=== PATIENT | male | born 1980 | race Caucasian/White ===

== ENCOUNTER → 2021-05-13 | Outpatient (CLI) | payer MEDICAID | END | disposition home or self-care (01) | LOC: Rad HDHVI 15:56 | PROVIDERS: ATTEND Internal Medicine | DX: I10 Essential (primary) hypertension (principal); I25.2 Old myocardial infarction | CPT/HCPCS: 93306 ==

== ENCOUNTER → 2021-06-30 | Outpatient (CLI) | payer MEDICAID ==
[~2021-06-30] VITALS: Ht 175.3 cm; Wt 199.6 kg
[~2021-06-30] MED LIST: ADENOSINE 90 MG/30 ML INJ IV ONE; ADENOSINE IV ONE; GIVE UN DILUTED IV ONE
== END | disposition home or self-care (01) ==
LOC: Rad HDHVI 09:00
PROVIDERS: ATTEND Internal Medicine
DX: Z01.810 Encounter for preprocedural cardiovascular examination (principal); Z13.0 Encounter for screening for diseases of the blood and blood-forming organs and certain disorders involving the immune mechanism
CPT/HCPCS: 78452; 93005; 96374; 96375; A9500; J0153

== ENCOUNTER 2024-12-17 21:10 | Inpatient (IN) | payer MEDICAID ==
[~2024-12-17] VITALS: Ht 175.3 cm; Wt 223.0 kg
[~2024-12-17 21:10] MED LIST changes: -ADENOSINE 90 MG/30 ML INJ IV ONE; -ADENOSINE IV ONE; +BUME2TAB5 PO; +DOLU1TAB6 PO; -GIVE UN DILUTED IV ONE; +HYDR25TA87 PO; +LOSA-535 PO; +MET25T PO; +POTA-180 PO; +ROSU40TA47 PO; +SPIR25TA8 PO; +TAMS0.4C39 PO
[2024-12-17] MEDS ORDERED: VANCOMYCIN PER PHARMACY 0 MG IV SCH (21:45)
[2024-12-17] MEDS: VANCOMYCIN 1GM/250ML IV SCH (22:00)
--- NOTE | 2024-12-17 22:03 | ED.PDOC ---
Musculoskeletal HPI Comments 44-year-old male with CAD status post 3 NAVEEN 2015, 2018, hypertension, bilateral lower extremity recurrent open wounds 2022, left toes amputation 1995, HIV on meds 2022, dyslipidemia presented to the ER with a chief complaint of bilateral purulent draining wound past weeks. Patient was seen in [facility] ER yesterday for similar reasons, was experiencing fever and chills, he was discharged from the ER and received a call earlier today that he has Gram- positive cocci and clusters in his blood. Patient did get 1 dose of vancomycin in ER at [facility] yesterday per patient. Patient reports that he has been having these bilateral wounds, lower extremity swelling, cellulitis since 2022 and there waxing and waning in nature. He does have wound care at home. He denies fever and chills at this time. Does reports shortness of breaths on exertion, PND and orthopnea. Denies diabetes and CHF. Follows Dr. Perez, and Bri Patient seen and examined in ER. Bilateral lower extremity are diffusely swollen, with purulent draining wound and surrounding erythema, active and pa ssive range of motion intact, sensations intact bilaterally. No pain with passive stretching. Attestation note: Dr. Gates: I was the supervising attending for this ED encounter. Please see the resident's notes. I was available for questions and consultations. Differential diagnosis: Leg swelling Ddx include but not limited to DVT, ischemic limb, pitting edema, volume overload, CHF, cellulitis, hematoma, compartment syndrome, dependent edema, venous stasis. Necrotizing fasciitis, abscess, infestation. MDM: MDM: patient presented with the above HPI.---leg swelling possible sepsis---workup was initiated. patient was found with the above mentioned diagnosis. the following medications were ordered: please refer to order lists of meds and tests obtained by myself Dr. Gates. Patient ED course and VS have been stabilized. Patient has been reassessed in the ED and remained in a stable condition. Pertinent incidental findings were discussed with the patient and/or family. Patient/family voices understanding and is agreeable with plan. Patient has been observed in the ED adequate length of time to insure imp rovement/stability. Escalation of care considered: Consideration of escalation to observation or admission Antibiotics initiated per sepsis protocol. Patient was given Lasix for volume overload and pitting edema lower extremities. Patient was ADMITTED to the medicine team for further evaluation and treatment of their presentation. All the reports of any imaging studies that were ordered by myself were reviewed by myself. Chief Complaint: Lower Extremity Time Seen by MD: 21:38 Reviewed Notes: Nurses Notes Allergies: Coded Allergies: Codeine (Verified Allergy, Unknown, 06/30/21) Penicillins (Verified Allergy, Unknown, 06/30/21) Sulfa Antibiotics (Verified Allergy, Unknown, 06/30/21) Information Source: Patient Mode of Arrival: Ambulatory Location: Left, Right, Bilateral Extremity Location: Ankle Timing: Weeks Severity: Moderate Able to Move Extremity: Yes Bear Weight: Fully Pain: Moderate Past Medical History Past Medical History (Other): CAD status post 3 NAVEEN 2015, 2018, hypertension, bilateral lower extremity recurrent open wounds 2022, left toes amputation 1995, HIV on meds 2022, dyslipidemia Surgical History (Other): left toes amputation 1995 Constitutional: reports: chills, fatigue EENTM: denies: blurred vision, double vision, ear bleeding, ear discharge, ear drainage, ear pain, ear ringing, eye pain, eye redness, hearing loss, mouth pain, mouth swelling, nasal discharge, nose bleeding, nose congestion, nose pain, photophobia, tearing, throat pain, throat swelling, voice changes, others Respiratory: reports: SOB at rest, shortness of breath, SOB with excertion Cardiovascular: reports: Dyspnea on exertion, edema Gastrointestinal: denies: abdomen distended, abdominal pain, blood streaked bowels, constipated, diarrhea, dysphagia, difficulty swallowing, hematemesis, melena, nausea, poor appetite, poor fluid intake, rectal bleeding, rectal pain, vomiting, others Genitourinary: denies: burning, dysuria, flank pain, frequency, hematuria, incontinence, penile discharge, penile sore, pain, testicle pain, testicle swelling, urgency, others Neurological: denies: dizziness, fainting, headache, left sided numbness, left sided weakness, numbness, paresthesia, pre-existing deficit, right sided num bness, right sided weakness, seizure, speech problems, tingling, tremors, weakness, others Musculoskeletal: denies: back pain, gout, joint pain, joint swelling, muscle pain, muscle stiffness, neck pain, others Integumetry: reports: wounds Allergic/Immunocompromised: denies: Difficulty Healing, Frequent Infections, Hi ves, Itching, others Hematologic/Lymphatic: denies: anemia, blood clots, easy bleeding, easy bruising, swollen glands, others Endocrine: denies: excessive hunger, excessive sweating, excessive thirst, excessive urination, flushing, intolerance to cold, intolerance to heat, unexplained weight gain, unexplained weight loss, others Psychiatric: denies: anxiety, bipolar disorder, depression, hopeless, panic disorder, schizophrenia, sleepless, suicidal, others Physical Exam General Appearance: Mild Distress HEENT: Cornea (L), Cornea (R) Neck: NOT DONE Respiratory: Decreased Breath Sounds, No Respiratory Distress Cardiovascular: Regular Rate/Rhythm Breast Exam: Deferred Gastrointestinal: Non Tender, Normal Bowel Sounds Genitalia: Deferred Pelvic: Deferred Rectal: Rectal Exam not done Extremities: Inflammation, Leg edema, Normal capillary refill, Pedal edema, Swelling, Tender Neurologic: Other (grossly normal appearing) Cerebellar Function: NOT DONE Reflexes: NOT DONE Skin: Wounds Lymphatic: NOT DONE Was a procedure done? Was a procedure done?: No Differential Diagnosis EXT Differential Diagnosis: Cellulitis, CHF, Deep Vein Thrombosis X-Ray, Labs, Meds, VS Vital Signs Date Time Temp Pulse Resp B/P (MAP) Pulse Ox O2 Delivery O2 Flow Rate FiO2 12/17/24 21:13 98.8 99 20 114/99 94 98.8 Lab Test 12/17/24 22:04 Range/Units White Blood Count 20.8 H 4.4-10.8 10^3/uL Red Blood Count 4.77 4.5-5.90 10^6/uL Hemoglobin 12.9 L 13.5-17.5 g/dL Hematocrit 40.3 L 41.0-53.0 % Mean Corpuscular Volume 84.5 80.0-100.0 fL Mean Corpuscular Hemoglobin 27.1 L 28.0-32.0 pg Mean Corpuscular Hemoglobin Concent 32.1 32.0-36.0 g/dL Red Cell Distribution Width 16.7 H 11.8-14.3 % Platelet Count 284 140-450 10^3/uL Mean Platelet Volume 8.4 6.9-10.8 fL Neutrophils (%) (Auto) 82.4 H 37.0-80.0 % Lymphocytes (%) (Auto) 10.1 10.0-50.0 % Monocytes (%) (Auto) 7.3 0.0-12.0 % Eosinophils (%) (Auto) 0.0 0.0-7.0 % Basophils (%) (Auto) 0.2 0.0-2.0 % Neutrophils # (Auto) 17.2 H 1.6-8.6 10 ^3/uL Lymphocytes # (Auto) 2.1 0.4-5.4 10 ^3/uL Monocytes # (Auto) 1.5 H 0-1.3 10 ^3/uL Eosinophils # (Auto) 0 0-0.8 10 ^3/uL Basophils # (Auto) 0 0-0.2 10 ^3/uL Nucleated Red Blood Cells 0.0 % Erythrocyte Sedimentation Rate 39 H 0-20 mm/hr Sodium Level 142 136-145 mmol/L Potassium Level 3.5 3.5-5.1 mmol/L Chloride Level 102 98-107 mmol/L Carbon Dioxide Level 27 20-31 mmol/L Anion Gap 13 5-15 Blood Urea Nitrogen 16 9-23 mg/dL Creatinine 1.25 0.700-1.30 mg/dL Glomerular Filtration Rate Calc 74 >90 mL/min BUN/Creatinine Ratio 12.8 10.0-20.0 Serum Glucose 193 H 74-106 mg/dL Lactic Acid Level 2.7 *H 0.4-2.0 mmol/L Calcium Level 9.1 8.7-10.4 mg/dL Total Bilirubin 0.4 0.2-1.0 mg/dL Aspartate Amino Transferase (AST) 18 13-40 U/L Alanine Aminotransferase (ALT) 13 7-40 U/L Alkaline Phosphatase 65 46-116 U/L Troponin I High Sensitivity 53 </=54 ng/L C-Reactive Protein High Sensitivity 8.05 H <1.0 mg/dL B-Type Natriuretic Peptide 39.13 0-100 pg/mL Total Protein 8.1 5.7-8.2 g/dL Albumin 4.2 3.2-4.8 g/dL X-Ray, Labs, Meds, VS Comment ABG shows WBC 20 with left shift Lactic acid elevated at 2.7 CT right and left lower extremity could not be completed given the patient's body weight Images Reviewed?: Images reviewed and evaluated by me Time of 1ST Reevaluation: 23:00 Reevaluation 1ST: Unchanged Consultation: PCP Patient Education/Counseling: Diagnosis, Treatment, Prognosis, Need For Follow Up Family Education/Counseling: Diagnosis, Treatment, Prognosis, Need For Follow Up Sepsis Sepsis Reasesment Focused Exam Orders: Laboratory Tests 12/17/24 22:04: Lactic Acid Level 2.7 Departure 1 Departure Time of Disposition: 22:58 Impression: Primary Impression: Bilateral lower leg cellulitis Additional Impressions: Leukocytosis Sepsis Disposition: ADMITTED INPATIENT Admit to: Tele Condition: Guarded Discharged With: Self Comments Patient will be admitted to this facility for the management of bilateral lower extremity cellulitis with draining purulent wounds, possible abscess and recent positive blood culture with Gram-positive cocci in cluster. He will need IV antibiotics and cultures and podiatry. Would also on benefit from CHF workup at this time. Currently on IV vancomycin and IV meropenem LRINEC score 3 points, low risk of necrotizing fascitis Critical Care Note Critical Care Time?: Yes (45 min-critical care time only) Stability Stability form required: No GRECIA RODRIGUEZ Dec 17, 2024 22:03 SEKOU GATES DO Dec 18, 2024 00:14
[2024-12-17 22:28] LABS: Hematocrit 40.3 % (41.0-53.0); Hemoglobin 12.9 g/dL (13.5-17.5); Mean Corpuscular Hemoglobin 27.1 pg (28.0-32.0); Mean Corpuscular Volume 84.5 fL (80.0-100.0); Nucleated Red Blood Cells % 0.0 %
[2024-12-17 22:44] LABS: Alanine Aminotransferase 13 U/L (7-40); Alkaline Phosphatase 65 U/L (46-116); Anion Gap 13 (5-15); BUN/Creatinine Ratio 12.8 (10.0-20.0); Blood Urea Nitrogen 16 mg/dL (9-23); Calcium 9.1 mg/dL (8.7-10.4); Carbon Dioxide 27 mmol/L (20-31); Chloride 102 mmol/L (98-107); Potassium 3.5 mmol/L (3.5-5.1); Sodium 142 mmol/L (136-145); Total Protein 8.1 g/dL (5.7-8.2)
[2024-12-17 22:45] LABS: Albumin 4.2 g/dL (3.2-4.8); Bilirubin, Total 0.4 mg/dL (0.2-1.0)
[2024-12-17 22:50] LABS: Glucose 193 mg/dL (74-106)
[2024-12-17 22:54] LABS: Lactic Acid w/Reflex 2.7 mmol/L (0.4-2.0)
[2024-12-17] MEDS ORDERED: ACETAMINOPHEN 325 MG TAB PO PRN (23:30)
[2024-12-17] MEDS ORDERED: NITROGLYCERIN 0.4 MG SL TAB SL PRN (23:30)
[2024-12-17] MEDS ORDERED: MORPHINE SULFATE INJ 2 MG/ml SYRG IV PRN ×2 (23:30)
[2024-12-17] MEDS ORDERED: ONDANSETRON HCL 4 MG/2 ML VIAL IV PRN (23:30)
--- NOTE | 2024-12-17 23:55 | DVH ---
Exam: US LEFT LOWER EXTREMITY ULTRASOUN Clinical History: B/L purulent draining wound, r/o abcess Comparison: US RIGHT LOWER EXTREMITY ULTRASOU on DOS: 12/17/24 Technique: Targeted sonographic evaluation of the soft tissues of the left ankle was obtained utilizing graysca le and color Doppler imaging. Findings/Impression: There is no evidence for drainable collection. There is no evidence for solid or cystic mass in the site. No vascular abnormalities identified at this site. Moderate diffuse soft tissue edema.
--- NOTE | 2024-12-17 23:55 | DVH ---
Exam: US RIGHT LOWER EXTREMITY ULTRASOU Clinical History: B/L purulent draining wound, r/o abcess Comparison: US LEFT LOWER EXTREMITY ULTRASOUN on DOS: 12/17/24 Technique: Targeted sonographic evaluation of the soft tissues of the right calf was obtained utilizing graysca le and color Doppler imaging. Findings/Impression: There is no evidence for drainable collection. There is no evidence for solid or cystic mass in the site. No vascular abnormalities identified at this site. Moderate diffuse soft tissue edema.
[2024-12-18] VITALS (8 sets, daily range): BP systolic 141–169; BP diastolic 77–92; PULSE 68–82; RESP 18–20; TEMP 97.6–98.4; O2SAT 90–100
[2024-12-18] MEDS: SODIUM CHLORIDE 0.9% 1,000 ML IV ONE (00:15)
[2024-12-18] MEDS: FUROSEMIDE 40 MG/4 ML VIAL IV ONE (00:58)
[2024-12-18 01:12] LABS: Prothrombin Time 11.1 sec (9.3-11.8)
[2024-12-18 01:13] LABS: INR 1.05 (0.9-1.15); Partial Thromboplastin Time 27.1 SEC (24.5-34.5)
[2024-12-18] MEDS: VANCOMYCIN 1GM/250ML KIT 250 ML IV ONE ×2 (02:06→04:53)
--- NOTE | 2024-12-18 02:39 | DVHHPRES ---
History of Present Illness Resident Creating Document: ANNABELLE HICKS History of Present Illness Juan Diego Pretty II is a 44-year-old male patient who presents to ED with chief complaint of bilateral lower limb discharge which presented in the past two weeks. Per patient he already had bilateral lower limb swelling for the past three years, a previous diagnosis of DVT and cellulitis requiring IV antibiotics with vancomycin due to MRSA. Patient has a home health nurse that has been treating his lower limb cellulitis since mid October 2024. Due to patient's bilateral lower limb discharge, worsening bilateral lower limb swelling, fever and associated dyspnea and Functional Class II which started two weeks before ago, prompted his visit to ED in [facility] were he later left against medical advice, but received a phone call that his blood cultures were positive. Patient reports his spironolactone was reduced to half is dose approximately one month ago (from 50 mg to 25 mg p.o. daily). Denies any other associated symptoms including chest pain, nausea, vomiting, dysuria. 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 Denies current tobacco, alcohol and other drug abuse Allergies: Codeine, penicillin Home medication: Does follow, Bumex, spironolactone, aspirin, Pradaxa Flight Control Specialist: Dr Roman Patient seen and examined at bedside. Currently has no new complaints. Patient will be admitted for further evaluation Past Medical History Per HPI Past Surgical History Per HPI Family History Per HPI Past Social History Per HPI Review of Systems Review of Systems Per HPI Allergies: Coded Allergies: Codeine (Verified Allergy, Unknown, 06/30/21) Penicillins (Verified Allergy, Unknown, 06/30/21) Sulfa Antibiotics (Verified Allergy, Unknown, 06/30/21) Medications Current Medications Medications Dose Ordered Sig/Cookie Route Start Time Stop Time Status Last Admin Dose Admin Vancomycin HCl 0 ml @ 0 mls/hr UD IV 12/17/24 21:45 UNV Meropenem 50 ml @ 17 mls/hr Q8HR IV 10/6/25 23:00 Acetaminophen 325 mg Q4HP PRN PO 12/17/24 23:30 Ondansetron HCl 4 mg Q4HP PRN IV 12/17/24 23:30 Morphine Sulfate 2 mg Q4HPRN PRN IV 12/17/24 23:30 Enoxaparin Sodium 40 mg DAILY SC 12/18/24 10:00 Nitroglycerin 0.4 mg Q5MINP PRN SL 12/17/24 23:30 Morphine Sulfate 2 mg Q30M PRN IV 12/17/24 23:30 Exam Vital Signs Vital Signs Date Time Temp Pulse Resp B/P (MAP) Pulse Ox O2 Delivery O2 Flow Rate FiO2 12/18/24 00:58 169/81 12/18/24 00:50 97.6 78 20 92 97.6 12/18/24 00:26 Room Air* 0 21 Exam Patient lying in bed, in no acute distress General: Lucid, obese, afebrile, mucosae are moist Cardiovascular: Normal S1 and S2. No murmurs, gallops or rubs Respiratory: Normal ventilation mechanics. Clear lung sounds on auscultation Abdomen: Soft, prominent, nontender, no organomegaly, normal bowel sounds, umbilical hernia which is not erythematous, not warm, mobilizes with palpation. Parietal edema MSK/skin: Mobilizes 4 limbs. Skin is dry and warm. Bilateral suprapatellar edema with erythema, scaly lesions and purulent secretion from both legs. Neurological: Oriented in 3 spheres. No motor no sensitive deficits. Pupils are isocoric and reactive Labs/Xrays Labs Test 12/18/24 00:23 12/17/24 22:04 Range/Units Prothrombin Time 11.1 9.3-11.8 sec Prothrombin Time INR 1.05 0.9-1.15 Activated Partial Thromboplast Time 27.1 24.5-34.5 SEC Lactic Acid Level 1.4 0.4-2.0 mmol/L White Blood Count 20.8 H 4.4-10.8 10^3/uL Red Blood Count 4.77 4.5-5.90 10^6/uL Hemoglobin 12.9 L 13.5-17.5 g/dL Hematocrit 40.3 L 41.0-53.0 % Mean Corpuscular Volume 84.5 80.0-100.0 fL Mean Corpuscular Hemoglobin 27.1 L 28.0-32.0 pg Mean Corpuscular Hemoglobin Concent 32.1 32.0-36.0 g/dL Red Cell Distribution Width 16.7 H 11.8-14.3 % Platelet Count 284 140-450 10^3/uL Mean Platelet Volume 8.4 6.9-10.8 fL Neutrophils (%) (Auto) 82.4 H 37.0-80.0 % Lymphocytes (%) (Auto) 10.1 10.0-50.0 % Monocytes (%) (Auto) 7.3 0.0-12.0 % Eosinophils (%) (Auto) 0.0 0.0-7.0 % Basophils (%) (Auto) 0.2 0.0-2.0 % Neutrophils # (Auto) 17.2 H 1.6-8.6 10 ^3/uL Lymphocytes # (Auto) 2.1 0.4-5.4 10 ^3/uL Monocytes # (Auto) 1.5 H 0-1.3 10 ^3/uL Eosinophils # (Auto) 0 0-0.8 10 ^3/uL Basophils # (Auto) 0 0-0.2 10 ^3/uL Nucleated Red Blood Cells 0.0 % Erythrocyte Sedimentation Rate 39 H 0-20 mm/hr Sodium Level 142 136-145 mmol/L Potassium Level 3.5 3.5-5.1 mmol/L Chloride Level 102 98-107 mmol/L Carbon Dioxide Level 27 20-31 mmol/L Anion Gap 13 5-15 Blood Urea Nitrogen 16 9-23 mg/dL Creatinine 1.25 0.700-1.30 mg/dL Glomerular Filtration Rate Calc 74 >90 mL/min BUN/Creatinine Ratio 12.8 10.0-20.0 Serum Glucose 193 H 74-106 mg/dL Calcium Level 9.1 8.7-10.4 mg/dL Total Bilirubin 0.4 0.2-1.0 mg/dL Aspartate Amino Transferase (AST) 18 13-40 U/L Alanine Aminotransferase (ALT) 13 7-40 U/L Alkaline Phosphatase 65 46-116 U/L Troponin I High Sensitivity 53 </=54 ng/L C-Reactive Protein High Sensitivity 8.05 H <1.0 mg/dL B-Type Natriuretic Peptide 39.13 0-100 pg/mL Total Protein 8.1 5.7-8.2 g/dL Albumin 4.2 3.2-4.8 g/dL SEPSIS Sepsis Screen Date sepsis recognized/suspect: Dec 17, 2024 Time Sepsis recognized/suspect: 2115 Recent Procedure: No On Antibiotic Therapy: No Respiratory Rate >20: No Heart Rate >90: No Temp<36 C (96.8 F) or >38.3 C: No SBP <90 or MAP <65 mmHG: No New Acute Mental Status Change: No Is the patient on CPAP, BIPAP,: No Physician Orders Brick Handler (12/17/24 ) Blood Culture (12/17/24 21:38) Vancomycin Per Pharmacy (12/17/24 21:45) Meropenem 1gm Ivpb (Merrem 1gm/50ml) (12/17/24 23:00) Left Lower Extremity Ultrasoun (12/17/24 21:49) Right Lower Extremity Ultrasou (12/17/24 21:49) Cleanse Wound W/ Sterile Gauze (12/17/24 22:20) Cleanse Wound With Ns (12/17/24 22:20) Admit (12/17/24 23:20) Code Status (12/17/24 23:20) Acetaminophen Tablet (Tylenol Tablet) (12/17/24 23:30) Ondansetron Hcl (Zofran) (12/17/24 23:30) Complete Blood Count (12/18/24 04:00) Comprehensive Metabolic Panel (12/18/24 04:00) Npo (Nothing By Mouth) Diet (12/18/24 Breakfast) Echo 2d Mode Cardiac Dop (12/17/24 23:20) Morphine Sulfate Injection (12/17/24 23:30) Enoxaparin Sodium (Lovenox) (12/18/24 10:00) Nitroglycerin Sublingual (Ntrostat Subli (12/17/24 23:30) Morphine Sulfate Injection (12/17/24 23:30) Oxygen By Nasal Cannula (12/17/24 23:20) Stat Ekg For Chest Pain (12/17/24 23:20) Notify Md Of Changes From Base (12/17/24 23:20) Charge Account Authorizer For 24 Hours (12/17/24 23:20) Emergency Dysrhythmia Protocol (12/17/24 23:20) Rhythm Strips Once Every Shift (12/17/24 23:20) Urinalysis (12/18/24 00:07) Chest Portable (12/18/24 00:07) Accucheck (12/18/24 00:07) Notify Md If Map <65 Or Bp<90 (12/18/24 00:07) If Map<65 Start Vasopressor (12/18/24 00:07) Sepsis Fluid Exclusion: (12/18/24 00:07) Sepsis Reassesment After Fluid (12/18/24 01:07) Vancomycin 1gm/250ml Kit (12/18/24 01:45) Vancomycin 1gm/250ml Kit (12/18/24 03:15) Vital Signs Date Time Temp Pulse Resp B/P (MAP) Pulse Ox O2 Delivery O2 Flow Rate FiO2 12/18/24 00:58 169/81 12/18/24 00:50 97.6 78 20 169/81 (110) 92 97.6 12/18/24 00:26 Room Air* 0 21 12/17/24 22:01 98.6 66 16 119/67 (84) 96 98.6 12/17/24 21:13 98.8 99 20 114/99 94 98.8 Laboratory Tests Test 12/17/24 22:04 12/18/24 00:23 Lactic Acid Level 2.7 mmol/L (0.4-2.0) *H 1.4 mmol/L (0.4-2.0) White Blood Count 20.8 10^3/uL (4.4-10.8) H Medications Medications Dose Ordered Sig/Cookie Route Start Time Stop Time Status Last Admin Dose Admin Furosemide 40 mg ONCE ONCE IV 12/17/24 21:45 12/17/24 21:46 DC 12/18/24 00:58 40 MG Sodium Chloride 1,000 ml @ 1,000 mls/hr Q1H ONCE IV 12/17/24 23:00 12/17/24 23:59 DC 12/18/24 00:15 1,000 MLS/HR Vancomycin HCl 250 ml @ 166.667 mls/hr ONCE ONCE IV 12/18/24 01:45 12/18/24 03:14 12/18/24 02:06 166.667 MLS/HR Assessment/Plan Assessment/Plan Sepsis secondary to bilateral cellulitis Cellulitis Recent bacteremia History of cellulitis secondary to MRSA Patient presented positive bacteremia in [facility]. Request records Patient currently on empiric IV antibiotic (meropenem and vancomycin) Acute on chronic congestive heart failure (unknown LVEF) Coronary artery disease status post MT with three NAVEEN Ordered echocardiogram Currently on IV Bumex ( 1mg IV b.i.d.) Continue aspirin and atorvastatin BNP is 39.13. Could be false negative due to morbid obesity History of DVT Patient is on Pradaxa. Completed lower limb extremity ultrasound which ruled out DVT Currently continue with therapeutic enoxaparin Unlikely to have PE since patient is not tachycardic is is not requiring oxygen therapy. If deemed consider, re-evaluate with V/Q scan versus AngioCT HIV Patient is compliant with medication Continue Dovato Ordered CD4 to evaluate immune response Morbid obesity Gave advice on healthy lifestyle habits Counseled patient for over18 minutes Hypertension Dyslipidemia Prediabetic (hemoglobin A1c 6.1%) Continue home medication Gave advice on healthy lifestyle habits Goals of care discussed with patient for over 18 minutes: DNR/DNI (modified since patient agrees with ACLS drugs in noninvasive ventilation) Discussed case with Dr Foley, patient and nurses: Admitted the patient to telem etry. Currently under empiric IV antibiotic, on IV diuretics. Ordered complementary workup. Requested records from [facility] for positive blood culture. Plan discussed with: Patient, Other My Orders Orders - ANNABELLE HICKS RESIDENT Procedure Category Date Status Time Admit ADMIT 12/17/24 Transmitted 23:20 Code Status CODE 12/17/24 Transmitted 23:20 Acetaminophen Tablet PHA 12/17/24 In Process (Tylenol Tablet) 23:30 Ondansetron Hcl PHA 12/17/24 In Process (Zofran) 23:30 Complete Blood Count LAB 12/18/24 Logged 04:00 Comprehensive LAB 12/18/24 Logged Metabolic Panel 04:00 Npo (Nothing By DIET 12/18/24 Transmitted Mouth) Diet Breakfast Echo 2d Mode Cardiac US 12/17/24 Logged DOP 23:20 Morphine Sulfate PHA 12/17/24 In Process Injection 23:30 Enoxaparin Sodium PHA 12/18/24 In Process (Lovenox) 10:00 Nitroglycerin PHA 12/17/24 In Process Sublingual (Ntrostat 23:30 Morphine Sulfate PHA 12/17/24 In Process Injection 23:30 Oxygen By Nasal RT 12/17/24 Transmitted Cannula 23:20 Stat Ekg For Chest [facility] 12/17/24 In Process Pain 23:20 Notify Of Changes [facility] 12/17/24 In Process From Base 23:20 Charge Account Authorizer For [facility] 12/17/24 In Process 24 Hours 23:20 Emergency Dysrhythmia [facility] 12/17/24 In Process Protocol 23:20 Rhythm Strips Once [facility] 12/17/24 In Process Every Shift 23:20 Date of Service: Dec 17, 2024 Billing Provider: ANNA FOLEY MD Common Visit Codes: 92646-[id number] INP/OBS CARE (HIGH) Secondary Visit Codes: 59996-[id number] CARE PLAN 30 MINUTES ANNABELLE HICKS RESIDENT Dec 18, 2024 02:39
[2024-12-18 03:00] LABS: Hematocrit 40.0 % (41.0-53.0); Hemoglobin 12.7 g/dL (13.5-17.5); Mean Corpuscular Hemoglobin 27.3 pg (28.0-32.0); Mean Corpuscular Volume 85.7 fL (80.0-100.0); Nucleated Red Blood Cells % 0.0 %
[2024-12-18 03:03] LABS: Anion Gap 11 (5-15); Carbon Dioxide 26 mmol/L (20-31); Chloride 104 mmol/L (98-107); Potassium 3.7 mmol/L (3.5-5.1); Sodium 141 mmol/L (136-145)
[2024-12-18 03:04] LABS: Calcium 8.9 mg/dL (8.7-10.4)
[2024-12-18] MEDS: MEROPENEM 1GM IVPB 50 ML IV SCH ×3 (03:07→17:02)
[2024-12-18 03:09] LABS: BUN/Creatinine Ratio 11.1 (10.0-20.0); Blood Urea Nitrogen 12 mg/dL (9-23); Magnesium 1.8 mg/dL (1.6-2.6)
[2024-12-18 03:14] LABS: Glucose 194 mg/dL (74-106)
[2024-12-18 04:27] LABS: Triglycerides 76 mg/dL (< 150)
[2024-12-18 04:29] LABS: Cholesterol 89 mg/dL (< 200)
[2024-12-18 04:34] LABS: HDL Cholesterol 34 mg/dL (40-59)
[2024-12-18] MEDS: BUMETANIDE 1mg/4ml VIAL (0.25mg/ml) IV ONE (04:52)
[2024-12-18] MEDS: ERGOCALCIFEROL 50,000 UNIT(1.25MG) CAP PO SCH (04:52)
[2024-12-18] MEDS: BUMETANIDE 1mg/4ml VIAL (0.25mg/ml) IV SCH (05:02)
--- NOTE | 2024-12-18 05:41 | DVH ---
CHEST RADIOGRAPH Indication: SOB Technique: Single frontal view of the chest was obtained COMPARISON: None FINDINGS: Lines and Tubes: None Lungs: Moderate diffuse increased prominence of the pulmonary vasculature. No evidence of focal cons olidation. Pleura: No effusion. No pneumothorax. Cardiomediastinal contours: Cardiomegaly. Bones: Unremarkable IMPRESSION: 1. Cardiomegaly with moderate pulmonary vascular congestion.
[2024-12-18] MEDS: ENOXAPARIN SOD 100 MG/1 ML SYRINGE SC SCH (08:27)
[2024-12-18] MEDS: SPIRONOLACTONE 25 MG TAB PO SCH (08:28)
[2024-12-18 09:01] LABS: Free T4 (Free Thyroxine) 0.96 ng/dL (0.89-1.76)
[2024-12-18] MEDS: POTASSIUM PHOSPHATE 22 MEQ in SODIUM CHL 0.9% 100 ML IV ONE (09:52)
[2024-12-18] MEDS ORDERED: ENOXAPARIN SOD 40 MG/0.4 ML SYRINGE SC SCH (10:00)
[2024-12-18] MEDS: OPTISON 3ml Vial for INJ IV ONE (10:47)
[2024-12-18] MEDS: VANCOMYCIN 1.25GM/250ML 250 ML IV SCH (12:54)
--- NOTE | 2024-12-18 15:12 | DVHPN2 ---
Subjective Patient denies any symptoms at this time. Reviewed: Care Plan, H&P, Labs, Medications Changes from previous H/P or p: No Changes General: Per HPI Objective Vitals Vital Signs Date Time Temp Pulse Resp B/P (MAP) Pulse Ox O2 Delivery O2 Flow Rate FiO2 12/18/24 13:00 97.9 68 20 154/89 (110) 95 97.9 12/18/24 00:26 Room Air* 0 21 Intake/Output Intake and Output 12/18/24 07:00 Intake Total 1050 ml Output Total 800 ml Balance 250 ml Intake IV Total 550 ml Other 500 ml Output Urine Total 800 ml General Appearance: Alert, Oriented X3, Cooperative, No acute distress HEENT: Atraumatic, PERRLA Lungs: Clear to auscultation, Normal air movement Cardiovascular: Normal S1, Normal S2 Abdomen: Normal bowel sounds, Soft, No tenderness, No hepatospenomegaly, No masses Genitourinary: No Apparent Abnormalities Extremities: No clubbing, No cyanosis Skin: Dry, Intact Psych/Mental Status: Mental status NL, Mood NL Medications Current Medications Medications Dose Ordered Sig/Cookie Route Start Time Stop Time Status Last Admin Dose Admin Vancomycin HCl 0 ml @ 0 mls/hr UD IV 12/17/24 21:45 Acetaminophen 325 mg Q4HP PRN PO 12/17/24 23:30 Ondansetron HCl 4 mg Q4HP PRN IV 12/17/24 23:30 Morphine Sulfate 2 mg Q30M PRN IV 12/17/24 23:30 Bumetanide 1 mg BIDD IV 12/18/24 06:00 Spironolactone 25 mg DAILY PO 12/18/24 10:00 12/18/24 08:28 25 MG Patient Own Medication 1 DAILY PO 12/18/24 10:00 Ergocalciferol 50,000 unit Q7D PO 12/18/24 03:30 12/18/24 04:52 50,000 UNIT Atorvastatin Calcium 40 mg HS PO 12/18/24 22:00 Aspirin 81 mg DAILY PO 12/18/24 10:00 12/18/24 08:27 81 MG Vancomycin HCl 250 ml @ 200 mls/hr Q8H IV 12/18/24 13:00 12/18/24 12:54 200 MLS/HR Meropenem 50 ml @ 17 mls/hr Q8H IV 12/18/24 18:00 Enoxaparin Sodium 150 mg Q12HR SC 12/18/24 22:00 Acetaminophen/ Hydrocodone Bitart 1 tab Q4HPRN PRN PO 12/18/24 15:15 UNV Laboratory Results Laboratory Tests 12/18/24 00:23 Chemistry Test 12/17/24 22:04 12/18/24 00:23 Albumin 4.2 g/dL (3.2-4.8) Calcium Level 9.1 mg/dL (8.7-10.4) 8.9 mg/dL (8.7-10.4) Total Protein 8.1 g/dL (5.7-8.2) Magnesium Level 1.8 mg/dL (1.6-2.6) Phosphorus Level 2.1 mg/dL (2.4-5.1) L Coagulation Test 12/18/24 00:23 Prothrombin Time 11.1 sec (9.3-11.8) Prothrombin Time INR 1.05 (0.9-1.15) Activated Partial Thromboplast Time 27.1 SEC (24.5-34.5) Lipid panel Test 12/18/24 00:23 Cholesterol Level 89 mg/dL (< 200) HDL Cholesterol 34 mg/dL (40-59) L Triglycerides Level 76 mg/dL (< 150) Cardiac Markers Test 12/17/24 22:04 B-Type Natriuretic Peptide 39.13 pg/mL (0-100) LFT Test 12/17/24 22:04 Alanine Aminotransferase (ALT) 13 U/L (7-40) Alkaline Phosphatase 65 U/L (46-116) Aspartate Amino Transferase (AST) 18 U/L (13-40) Total Bilirubin 0.4 mg/dL (0.2-1.0) HgA1c, TSH Test 12/18/24 00:23 Hemoglobin A1c 6.1 % A1C (<5.7) H Thyroid Stimulating Hormone (TSH) 9.28 uIU/mL (0.55-4.78) H Labs and/or images reviewed: Labs reviewed by me, Image(s) reviewed by me Assessment/Plan Assessment/Plan Impression: -sepsis -bilateral lower extremity cellulitis -morbid obesity -HIV -dyslipidemia -acute on chronic diastolic heart failure Plan: -continue antibiotic therapy with Meropenem vancomycin -IV diuresis -continue home medication, Dovato -pain management -PUD, DVT prophylaxis -repeat labs in a.m. Total time spent with patient discussing and formulating plan of care: 35 minutes. This medical document was created using an electronic medical record system with [employer] dictation system. Although this document has been carefully reviewed, there may still be some phonetic and typographical errors. These areas are purely typographical due to imperfections of the software programs, and do not reflect any compromise in the patient's medical care. Plan discussed with: Patient, Other (RN) My Orders Orders - SOPHIE MARTIN NP Procedure Category Date Status Time Hydrocodone-Acet PHA 12/18/24 Logged 5/325mg Tab ([place] 15:15 Complete Blood Count LAB 12/19/24 Verified 04:00 Comprehensive LAB 12/19/24 Verified Metabolic Panel 04:00 Date of Service: Dec 18, 2024 Billing Provider: SOPHIE MARTIN NP Common Visit Codes: [id number] INP/OBS CARE(HIGH) SOPHIE MARTIN NP Dec 18, 2024 15:12
[2024-12-18] MEDS: BACITRACIN TOP OINT 1 UD PKG TOP ONE (16:43)
[2024-12-18] MEDS: HYDROcodone-ACET 5/325MG TAB PO PRN (17:02)
[2024-12-18 18:10] LABS: Urine Protein, UAD Negative (Negative)
[2024-12-18 18:21] LABS: Amphetamine Screen, Urine Neg (NEGATIVE); Barbiturate Scree,Urine Neg (NEGATIVE); Benzodiazephine Screen, Urine Neg (NEGATIVE); Cannabinoid Screen, Urine Neg (NEGATIVE); Cocaine Screen, Urine Neg (NEGATIVE); Opiate Scree,Urine Neg (NEGATIVE); Phencyclidine Screen, Urine Neg (NEGATIVE)
[2024-12-18] MEDS: ATORVASTATIN 20 MG TAB PO SCH (21:43)
[2024-12-18] MEDS: ENOXAPARIN SOD 150 MG/1 ML SYRINGE SC SCH (21:44)
[2024-12-19] VITALS (8 sets, daily range): BP systolic 120–180; BP diastolic 85–110; PULSE 64–84; RESP 14–20; TEMP 96.9–97.9; O2SAT 94–99
[2024-12-19 04:39] LABS: Hematocrit 37.4 % (41.0-53.0); Hemoglobin 12.2 g/dL (13.5-17.5); Mean Corpuscular Hemoglobin 27.4 pg (28.0-32.0); Mean Corpuscular Volume 84.2 fL (80.0-100.0); Nucleated Red Blood Cells % 0.0 %
[2024-12-19 04:56] LABS: Alanine Aminotransferase 12 U/L (7-40); Albumin 3.6 g/dL (3.2-4.8); Alkaline Phosphatase 48 U/L (46-116); Anion Gap 7 (5-15); BUN/Creatinine Ratio 16.7 (10.0-20.0); Bilirubin, Total 0.4 mg/dL (0.2-1.0); Blood Urea Nitrogen 19 mg/dL (9-23); Chloride 101 mmol/L (98-107); Glucose 99 mg/dL (74-106); Sodium 143 mmol/L (136-145); Total Protein 7.1 g/dL (5.7-8.2)
[2024-12-19 04:58] LABS: Calcium 8.6 mg/dL (8.7-10.4); Carbon Dioxide 35 mmol/L (20-31); Potassium 3.5 mmol/L (3.5-5.1)
[2024-12-19 06:07] LABS: Hematocrit 42.1 % (37.5-51.0); Hemoglobin 13.1 g/dL (13.0-17.7); MCH 27.6 pg (26.6-33.0); MCHC 31.1 g/dL (31.5-35.7); MCV 89 fL (79-97); RBC 4.75 x10E6/uL (4.14-5.80); RDW 14.9 % (11.6-15.4); WBC 16.3 x10E3/uL (3.4-10.8)
--- NOTE | 2024-12-19 09:35 | DVHSR ---
APPROVED REPORT EXAM: LIMITED Two-dimensional and M-mode echocardiogram with Doppler, color Doppler and Optison. Blood Pressure: 158/86 mmHg INDICATION Sepsis RISK FACTORS Height: 69, Weight: 500 DIMENSIONS EF (%) 60.0 (55-70%)Rt. Atrium (1.9-4.0cm)Asc. Aorta cm Mitral Valve MitralMitral Stenosis E wave0.84m/sMV Mean GR.mmHg A wave0.57m/sMV Peak GR.mmHg E/A ratio1.52D MVAcm2 DECEL [id number] 1/2 Abpo23ih IVRTmsDop MVA3.73cm2 Aortic Valve Aortic ValveAortic Stenosis V11.15m/[place] Mean GR.3mmHg V21.17m/[place] Peak GR.5mmHg Other Information Technically limited study due to patient is 500 pounds. Very poor images. Optison used. Conclusion LV EF IS 60% AND IS NORMAL SEVERE DYSKINESIS OF IVS REMARKABLY DILATED AND HYPOKINETIC RV MODERATELY DILATED RA STUDY CONFIRMS SEVERE RV FAILURE GROSSLY NORMAL VALVES NO EFFUSION LIMITED IMAGES DUE TO BODY HABITUS
--- NOTE | 2024-12-19 09:58 | DVHPN2 ---
Subjective Patient denies any symptoms at this time. Reviewed: Care Plan, H&P, Labs, Medications Changes from previous H/P or p: No Changes General: Per HPI Objective Vitals Vital Signs Date Time Temp Pulse Resp B/P (MAP) Pulse Ox O2 Delivery O2 Flow Rate FiO2 12/19/24 09:00 97.6 80 18 161/105 (123) 99 97.6 12/18/24 20:00 Nasal Cannula* 1 24 Intake/Output Intake and Output 12/19/24 07:00 Intake Total 1105 ml Balance 1105 ml Intake Oral 300 ml IV Total 805 ml # Voids 2 General Appearance: Alert, Oriented X3, Cooperative, No acute distress HEENT: Atraumatic, PERRLA Lungs: Clear to auscultation, Normal air movement Cardiovascular: Normal S1, Normal S2 Abdomen: Normal bowel sounds, Soft, No tenderness, No hepatospenomegaly, No masses Genitourinary: No Apparent Abnormalities Extremities: No clubbing, No cyanosis Skin: Dry, Intact Psych/Mental Status: Mental status NL, Mood NL Medications Current Medications Medications Dose Ordered Sig/Cookie Route Start Time Stop Time Status Last Admin Dose Admin Vancomycin HCl 0 ml @ 0 mls/hr UD IV 12/17/24 21:45 Acetaminophen 325 mg Q4HP PRN PO 12/17/24 23:30 Ondansetron HCl 4 mg Q4HP PRN IV 12/17/24 23:30 Morphine Sulfate 2 mg Q30M PRN IV 12/17/24 23:30 Bumetanide 1 mg BIDD IV 12/18/24 06:00 12/19/24 05:31 1 MG Spironolactone 25 mg DAILY PO 12/18/24 10:00 12/19/24 09:43 25 MG Patient Own Medication 1 DAILY PO 12/18/24 10:00 Ergocalciferol 50,000 unit Q7D PO 12/18/24 03:30 12/18/24 04:52 50,000 UNIT Atorvastatin Calcium 40 mg HS PO 12/18/24 22:00 12/18/24 21:43 40 MG Aspirin 81 mg DAILY PO 12/18/24 10:00 12/19/24 09:43 81 MG Vancomycin HCl 250 ml @ 200 mls/hr Q8H IV 12/18/24 13:00 12/18/24 21:44 200 MLS/HR Meropenem 50 ml @ 17 mls/hr Q8H IV 12/18/24 18:00 12/19/24 09:42 17 MLS/HR Enoxaparin Sodium 150 mg Q12HR SC 12/18/24 22:00 12/19/24 09:43 150 MG Acetaminophen/ Hydrocodone Bitart 1 tab Q4HPRN PRN PO 12/18/24 15:15 12/19/24 00:18 1 TAB Laboratory Results Laboratory Tests 12/19/24 04:14 Chemistry Test 12/19/24 04:14 Albumin 3.6 g/dL (3.2-4.8) Calcium Level 8.6 mg/dL (8.7-10.4) L Total Protein 7.1 g/dL (5.7-8.2) LFT Test 12/19/24 04:14 Alanine Aminotransferase (ALT) 12 U/L (7-40) Alkaline Phosphatase 48 U/L (46-116) Aspartate Amino Transferase (AST) 14 U/L (13-40) Total Bilirubin 0.4 mg/dL (0.2-1.0) Urinalysis Test 12/18/24 17:50 Urine Color Colorless (Yellow) Urine Clarity Clear (Clear) Urine pH 6.0 (5.0-9.0) Urine Specific [place] 1.008 (1.001-1.035) Urine Protein Negative (Negative) Urine Ketones Negative (Negative) Urine Blood 2+ /uL (Negative) H Urine Nitrite Negative (Negative) Urine Bilirubin Negative (Negative) Urine Urobilinogen Normal mg/dL (Negative) Urine Leukocyte Esterase Negative /uL (Negative) Urine RBC 13 /hpf (0 - 3) Urine Microscopic WBC 1 /HPF (0-3) Urine Squamous Epithelial Cells Few /hpf (<5) Urine Bacteria None seen /hpf (None Seen) Urine Glucose Normal mg/dL (Normal) Microbiology Microbiology Date/Time Source Procedure Growth Status 12/17/24 22:04 Blood Blood Culture - Preliminary NO GROWTH AFTER 24 HOURS OF INCUBATION. Resulted Labs and/or images reviewed: Labs reviewed by me, Image(s) reviewed by me Assessment/Plan Assessment/Plan Impression: -sepsis -bilateral lower extremity cellulitis -morbid obesity -HIV -dyslipidemia -acute on chronic diastolic heart failure Plan: Events: Improvement with lower extremity swelling, on improvement with erythema. Still has some drainage from wounds. WBC count within normal range. -potassium replacement -continue antibiotic therapy with Meropenem vancomycin -IV diuresis -continue home medication, Dovato -pain management -PUD, DVT prophylaxis -repeat labs in a.m. Total time spent with patient discussing and formulating plan of care: 35 minutes. This medical document was created using an electronic medical record system with [employer] dictation system. Although this document has been carefully reviewed, there may still be some phonetic and typographical errors. These areas are purely typographical due to imperfections of the software programs, and do not reflect any compromise in the patient's medical care. Plan discussed with: Patient, Other (RN) My Orders Orders - SOPHIE MARTIN NP Procedure Category Date Status Time Hydrocodone-Acet PHA 12/18/24 In Process 5/325mg Tab ([place] 15:15 Basic Metabolic Panel LAB 12/20/24 Verified 04:00 Magnesium LAB 12/20/24 Verified 04:00 Potassium Er Tablet PHA 12/19/24 Logged (Klor-Con Tablet) 10:00 Complete Blood Count LAB 12/20/24 Verified 04:00 Date of Service: Dec 19, 2024 Billing Provider: SOPHIE MARTIN NP Common Visit Codes: [id number] INP/OBS CARE(HIGH) SOPHIE MARTIN NP Dec 19, 2024 09:58
[2024-12-19] MEDS: POTASSIUM CHL 20 Meq TABLET PO ONE (10:42)
[2024-12-19 13:08] LABS: CD4/CD8 Ratio 0.45 (0.92-3.72)
[2024-12-19] MEDS: VANCOMYCIN 1GM/250ML KIT 250 ML IV SCH (13:19)
[2024-12-19] MEDS ORDERED: LABETALOL HCL 20 MG/4 ML VL IV PRN (15:45)
[2024-12-19] MEDS: LOSARTAN POTASSIUM 50 MG TAB PO ONE (16:27)
[2024-12-19] MEDS: METOPROLOL TARTRATE 25 MG TAB PO SCH (22:17)
[2024-12-20] VITALS (8 sets, daily range): BP systolic 133–155; BP diastolic 87–99; PULSE 64–73; RESP 18–20; TEMP 97.5–98.6; O2SAT 93–98
[2024-12-20 07:19] LABS: Chloride 99 mmol/L (98-107); Sodium 143 mmol/L (136-145)
[2024-12-20 07:20] LABS: Anion Gap 8 (5-15); Calcium 8.8 mg/dL (8.7-10.4)
[2024-12-20 07:25] LABS: BUN/Creatinine Ratio 16.3 (10.0-20.0); Blood Urea Nitrogen 17 mg/dL (9-23)
[2024-12-20 07:26] LABS: Carbon Dioxide 36 mmol/L (20-31); Glucose 113 mg/dL (74-106); Magnesium 1.7 mg/dL (1.6-2.6); Potassium 3.4 mmol/L (3.5-5.1)
[2024-12-20 07:45] LABS: Hematocrit 41.7 % (41.0-53.0); Hemoglobin 13.3 g/dL (13.5-17.5); Mean Corpuscular Hemoglobin 26.7 pg (28.0-32.0); Mean Corpuscular Volume 83.5 fL (80.0-100.0); Nucleated Red Blood Cells % 0.2 %
--- NOTE | 2024-12-20 10:34 | DVHPN2 ---
Subjective Patient denies any symptoms at this time. Reviewed: Care Plan, H&P, Labs, Medications Changes from previous H/P or p: No Changes General: Per HPI Objective Vitals Vital Signs Date Time Temp Pulse Resp B/P (MAP) Pulse Ox O2 Delivery O2 Flow Rate FiO2 12/20/24 09:00 97.8 68 18 155/94 (114) 97 97.8 12/19/24 20:00 Nasal Cannula* 2 28 Intake/Output Intake and Output 12/20/24 07:00 Intake Total 1840 ml Balance 1840 ml Intake Oral 1540 ml IV Total 300 ml # Voids 7 General Appearance: Alert, Oriented X3, Cooperative, No acute distress HEENT: Atraumatic, PERRLA Lungs: Clear to auscultation, Normal air movement Cardiovascular: Normal S1, Normal S2 Abdomen: Normal bowel sounds, Soft, No tenderness, No hepatospenomegaly, No masses Genitourinary: No Apparent Abnormalities Extremities: No clubbing, No cyanosis Skin: Dry, Intact Psych/Mental Status: Mental status NL, Mood NL Medications Current Medications Medications Dose Ordered Sig/Cookie Route Start Time Stop Time Status Last Admin Dose Admin Vancomycin HCl 0 ml @ 0 mls/hr UD IV 12/17/24 21:45 Acetaminophen 325 mg Q4HP PRN PO 12/17/24 23:30 Ondansetron HCl 4 mg Q4HP PRN IV 12/17/24 23:30 Morphine Sulfate 2 mg Q30M PRN IV 12/17/24 23:30 Bumetanide 1 mg BIDD IV 12/18/24 06:00 12/20/24 05:45 1 MG Spironolactone 25 mg DAILY PO 12/18/24 10:00 12/19/24 09:43 25 MG Patient Own Medication 1 DAILY PO 12/18/24 10:00 12/19/24 10:42 1 Ergocalciferol 50,000 unit Q7D PO 12/18/24 03:30 12/18/24 04:52 50,000 UNIT Atorvastatin Calcium 40 mg HS PO 12/18/24 22:00 12/19/24 22:17 40 MG Aspirin 81 mg DAILY PO 12/18/24 10:00 12/19/24 09:43 81 MG Meropenem 50 ml @ 17 mls/hr Q8H IV 12/18/24 18:00 12/20/24 01:51 17 MLS/HR Enoxaparin Sodium 150 mg Q12HR SC 12/18/24 22:00 12/19/24 22:18 150 MG Acetaminophen/ Hydrocodone Bitart 1 tab Q4HPRN PRN PO 12/18/24 15:15 12/19/24 00:18 1 TAB Vancomycin HCl 250 ml @ 250 mls/hr Q8H IV 12/19/24 13:00 12/20/24 05:46 250 MLS/HR Metoprolol Tartrate 25 mg BID PO 12/19/24 22:00 12/19/24 22:17 25 MG Losartan Potassium 100 mg DAILY PO 12/20/24 10:00 Labetalol HCl 10 mg Q2HPRN PRN IV 12/19/24 15:45 Laboratory Results Laboratory Tests 12/20/24 06:41 Chemistry Test 12/20/24 06:41 Calcium Level 8.8 mg/dL (8.7-10.4) Magnesium Level 1.7 mg/dL (1.6-2.6) Urinalysis Test 12/18/24 17:50 Urine Color Colorless (Yellow) Urine Clarity Clear (Clear) Urine pH 6.0 (5.0-9.0) Urine Specific [place] 1.008 (1.001-1.035) Urine Protein Negative (Negative) Urine Ketones Negative (Negative) Urine Blood 2+ /uL (Negative) H Urine Nitrite Negative (Negative) Urine Bilirubin Negative (Negative) Urine Urobilinogen Normal mg/dL (Negative) Urine Leukocyte Esterase Negative /uL (Negative) Urine RBC 13 /hpf (0 - 3) Urine Microscopic WBC 1 /HPF (0-3) Urine Squamous Epithelial Cells Few /hpf (<5) Urine Bacteria None seen /hpf (None Seen) Urine Glucose Normal mg/dL (Normal) Microbiology Microbiology Date/Time Source Procedure Growth Status 12/18/24 17:50 Voided Urine Urine Culture - Preliminary Resulted 12/18/24 16:20 Nose MRSA Screen - Final Complete 12/17/24 22:04 Blood Blood Culture - Preliminary NO GROWTH AFTER 48 HOURS OF INCUBATION. Resulted Labs and/or images reviewed: Labs reviewed by me, Image(s) reviewed by me Assessment/Plan Assessment/Plan Impression: -sepsis -bilateral lower extremity cellulitis -morbid obesity -HIV -dyslipidemia -acute on chronic diastolic heart failure Plan: Events: Patient has improvement with swelling, redness, as well as having minimal drainage now. Discussed code status for which he would like to be a full code at this time. Potassium 3.4, K replacement ordered -potassium replacement -change antibiotic therapy to vancomycin and Levaquin -IV diuresis -continue home medication, Dovato -pain management -PUD, DVT prophylaxis -repeat labs in a.m. Total time spent with patient discussing and formulating plan of care: 35 minutes. Total time spent with patient and family regarding advance care plannin minutes. This medical document was created using an electronic medical record system with [employer] dictation system. Although this document has been carefully reviewed, there may still be some phonetic and typographical errors. These areas are purely typographical due to imperfections of the software programs, and do not reflect any compromise in the patient's medical care. Plan discussed with: Patient, Other (RN) My Orders Orders - SOPHIE MARTIN NP Procedure Category Date Status Time Metoprolol Tartrate PHA 12/19/24 In Process Tablet (Lopressor Ta 22:00 Losartan Tablet PHA 12/20/24 In Process (Cozaar Tablet) 10:00 Labetalol Hcl PHA 12/19/24 In Process (Labetalol Hcl) 15:45 Cleanse Wound With ROMI 12/19/24 In Process Wound Clean 16:03 * Dietary Consult CONS 12/19/24 Transmitted 16:05 Potassium Effervesent PHA 12/20/24 Logged Tab (Klor-Con/Ef) 10:30 Date of Service: Dec 20, 2024 Billing Provider: SOPHIE MARTIN NP Common Visit Codes: [id number] INP/OBS CARE(HIGH) Secondary Visit Codes: [id number] CARE PLAN 30 MINUTES SOPHIE MARTIN NP Dec 20, 2024 10:34
[2024-12-20] MEDS: POTASSIUM EFFERVESENT TAB 25 MEQ PO ONE (11:16)
[2024-12-20] MEDS: LOSARTAN POTASSIUM 50 MG TAB PO SCH (11:17)
[2024-12-20] MEDS: METOPROLOL TARTRATE 25 MG TAB PO SCH (21:18)
[2024-12-20] MEDS ORDERED: VANCOMYCIN 750mg/150ml 150 ML IV SCH (22:30)
[2024-12-20] MEDS ORDERED: VANCOMYCIN 750MG KIT 100 ML IV SCH (22:30)
[2024-12-21] VITALS (7 sets, daily range): BP systolic 131–154; BP diastolic 73–96; PULSE 61–75; RESP 18–20; TEMP 98.2–98.4; O2SAT 92–98
[2024-12-21] MEDS: VANCOMYCIN 750MG KIT 100 ML IV SCH ×2 (05:05→09:15)
[2024-12-21 07:09] LABS: Hematocrit 39.1 % (41.0-53.0); Hemoglobin 12.6 g/dL (13.5-17.5); Mean Corpuscular Hemoglobin 27.0 pg (28.0-32.0); Mean Corpuscular Volume 84.0 fL (80.0-100.0); Nucleated Red Blood Cells % 0.0 %
[2024-12-21] MEDS ORDERED: BACDST PO (10:39)
--- NOTE | 2024-12-21 10:44 | DVHDS2 ---
Discharge Summary Date of Admission Dec 17, 2024 at 23:20 Date of Discharge: Dec 21, 2024 Admitting Diagnosis Sepsis secondary to bilateral lower extremity cellulitis Labs/Diagnostic Data: Laboratory Results Test 12/21/24 06:34 12/20/24 20:00 12/20/24 06:41 12/19/24 04:14 White Blood Count 8.7 10^3/uL (4.4-10.8) Red Blood Count 4.66 10^6/uL (4.5-5.90) Hemoglobin 12.6 g/dL (13.5-17.5) Hematocrit 39.1 % (41.0-53.0) Mean Corpuscular Volume 84.0 fL (80.0-100.0) Mean Corpuscular Hemoglobin 27.0 pg (28.0-32.0) Mean Corpuscular Hemoglobin Concent 32.2 g/dL (32.0-36.0) Red Cell Distribution Width 16.7 % (11.8-14.3) Platelet Count 266 10^3/uL (140-450) Mean Platelet Volume 8.1 fL (6.9-10.8) Neutrophils (%) (Auto) 63.7 % (37.0-80.0) Lymphocytes (%) (Auto) 21.9 % (10.0-50.0) Monocytes (%) (Auto) 7.2 % (0.0-12.0) Eosinophils (%) (Auto) 6.9 % (0.0-7.0) Basophils (%) (Auto) 0.3 % (0.0-2.0) Neutrophils # (Auto) 5.6 10 ^3/uL (1.6-8.6) Lymphocytes # (Auto) 1.9 10 ^3/uL (0.4-5.4) Monocytes # (Auto) 0.6 10 ^3/uL (0-1.3) Eosinophils # (Auto) 0.6 10 ^3/uL (0-0.8) Basophils # (Auto) 0 10 ^3/uL (0-0.2) Nucleated Red Blood Cells 0.0 % Creatinine 1.05 mg/dL (0.700-1.30) Glomerular Filtration Rate Calc 91 mL/min (>90) Vancomycin Level Trough 18.4 ug/mL (5-10) Sodium Level 143 mmol/L (136-145) Potassium Level 3.4 mmol/L (3.5-5.1) Chloride Level 99 mmol/L (98-107) Carbon Dioxide Level 36 mmol/L (20-31) Anion Gap 8 (5-15) Blood Urea Nitrogen 17 mg/dL (9-23) BUN/Creatinine Ratio 16.3 (10.0-20.0) Serum Glucose 113 mg/dL (74-106) Calcium Level 8.8 mg/dL (8.7-10.4) Magnesium Level 1.7 mg/dL (1.6-2.6) Total Bilirubin 0.4 mg/dL (0.2-1.0) Aspartate Amino Transferase (AST) 14 U/L (13-40) Alanine Aminotransferase (ALT) 12 U/L (7-40) Alkaline Phosphatase 48 U/L (46-116) Total Protein 7.1 g/dL (5.7-8.2) Albumin 3.6 g/dL (3.2-4.8) Test 12/18/24 17:50 12/18/24 08:05 12/18/24 06:55 12/18/24 00:23 Urine Color Colorless (Yellow) Urine Clarity Clear (Clear) Urine pH 6.0 (5.0-9.0) Urine Specific [place] 1.008 (1.001-1.035) Urine Protein Negative (Negative) Urine Ketones Negative (Negative) Urine Blood 2+ /uL (Negative) Urine Nitrite Negative (Negative) Urine Bilirubin Negative (Negative) Urine Urobilinogen Normal mg/dL (Negative) Urine Leukocyte Esterase Negative /uL (Negative) Urine RBC 13 /hpf (0 - 3) Urine Microscopic WBC 1 /HPF (0-3) Urine Squamous Epithelial Cells Few /hpf (<5) Urine Bacteria None seen /hpf (None Seen) Urine Glucose Normal mg/dL (Normal) Urine Opiates Screen Neg (NEGATIVE) Urine Fentanyl Screen Neg (NEGATIVE) Urine Barbiturates Screen Neg (NEGATIVE) Urine Phencyclidine Screen Neg (NEGATIVE) Urine Amphetamines Screen Neg (NEGATIVE) Urine Benzodiazepines Screen Neg (NEGATIVE) Urine Cocaine Screen Neg (NEGATIVE) Urine Cannabinoids Screen Neg (NEGATIVE) Free Thyroxine (T4) Calculated 0.96 ng/dL (0.89-1.76) Total Triiodothyronine (TT3) 1.15 ng/mL (0.60-1.81) Absolute Neutrophils (auto) 12.7 x10E3/uL (1.4-7.0) Absolute Lymphocytes (auto) 2.4 x10E3/uL (0.7-3.1) Absolute Monocytes (auto) 1.0 x10E3/uL (0.1-0.9) Absolute Eosinophils (auto) 0.0 x10E3/uL (0.0-0.4) Absolute Basophils (auto) 0.0 x10E3/uL (0.0-0.2) Immature Granulocytes % 1 % (Not Estab.) Immature Granulocytes # 0.1 x10E3/uL (0.0-0.1) Immature Blood Cells (.) Hematology Comments (.) Percent CD4 Cells 20.0 % (30.8-58.5) Absolute CD4 Count 480 /uL (359-1519) T-Lymphocyte CD4/CD8 Ratio 0.45 (0.92-3.72) Percent CD8 Cells 44.2 % (12.0-35.5) Absolute CD8 Count 1061 /uL (109-897) Prothrombin Time 11.1 sec (9.3-11.8) Prothrombin Time INR 1.05 (0.9-1.15) Activated Partial Thromboplast Time 27.1 SEC (24.5-34.5) Hemoglobin A1c 6.1 % A1C (<5.7) Lactic Acid Level 1.4 mmol/L (0.4-2.0) Phosphorus Level 2.1 mg/dL (2.4-5.1) Triglycerides Level 76 mg/dL (< 150) Cholesterol Level 89 mg/dL (< 200) LDL Cholesterol 46 mg/dL (< 100) HDL Cholesterol 34 mg/dL (40-59) Vitamin B12 Level 266 pg/mL (211-911) Vitamin D 25-Hydroxy 26.5 ng/mL (30.0-100) Thyroid Stimulating Hormone (TSH) 9.28 uIU/mL (0.55-4.78) Test 12/17/24 22:04 Erythrocyte Sedimentation Rate 39 mm/hr (0-20) Troponin I High Sensitivity 53 ng/L (</=54) C-Reactive Protein High Sensitivity 8.05 mg/dL (<1.0) B-Type Natriuretic Peptide 39.13 pg/mL (0-100) Other Laboratory Tests 12/21/24 06:34 12/20/24 06:41 Brief Hx & Hospital Course: History of Present Illness Juan Diego Pretty II is a 44-year-old male patient who presents to ED with chief complaint of bilateral lower limb discharge which presented in the past two weeks. Per patient he already had bilateral lower limb swelling for the past three years, a previous diagnosis of DVT and cellulitis requiring IV antibiotics with vancomycin due to MRSA. Patient has a home health nurse that has been treating his lower limb cellulitis since mid October 2024. Due to patient's bilateral lower limb discharge, worsening bilateral lower limb swelling, fever and associated dyspnea and Functional Class II which started two weeks before ago, prompted his visit to ED in [facility] were he later left against medical advice, but received a phone call that his blood cultures were positive. Patient reports his spironolactone was reduced to half is dose approximately one month ago (from 50 mg to 25 mg p.o. daily). Denies any other associated symptoms including chest pain, nausea, vomiting, dysuria. Course of hospitalization: Patient was started on empiric antibiotic therapy with Meropenem and vancomycin. Doppler study to lower extremities negative for DVT. Patient does have a significant history of diastolic heart failure with diuretic treatment with Bumex. Patient was also restarted on beta onel and LUCIE inhibitor therapy while in the hospital. Patient had improvement with redness, weeping, as well as swelling to lower extremities. White blood cell count is now normal. He has been afebrile. Patient states he clinically feels better. Patient will be discharged home with reinstitution of [facility] for wound care to lower extremities. Patient reports that he has an appointment with his PCP, Dr. Charles Mujica on 12/31/2024. Patient will continue with antibiotic therapy in the form of Bactrim DS one tablet b.i.d. x7 days. He will continue all previous home medications. All questions answered. Physical examination General: Alert and Oriented x3. No acute distress. Well-nourished. Obese Eyes: EOMI. Anicteric. HENT: Moist mucous membranes. Lungs: Clear to auscultation bilaterally. No accessory muscle use. Cardiovascular: Regular rate and rhythm. No murmur. No JVD. Abdomen: Soft, non-tender and non-distended. No palpable masses. Extremities: No edema. Non-tender. Skin: No rashes or lesions. Warm. Neurologic: No focal neurological deficits. CN II-XII grossly intact, but not individually tested. Psychiatric: Cooperative. Appropriate mood and affect. Total time spent with patient discussing and formulating plan of care: 35 minutes. This medical document was created using an electronic medical record system with virocyt dictation system. Although this document has been carefully reviewed, there may still be some phonetic and typographical errors. These areas are purely typographical due to imperfections of the software programs, and do not reflect any compromise in the patient's medical care. Condition at Discharge: Guarded Final Diagnosis/Problems List Sepsis secondary to bilateral lower extremity cellulitis Secondary diagnosis: -bilateral lower extremity cellulitis -morbid obesity -HIV -dyslipidemia -acute on chronic diastolic heart failure -obstructive sleep apnea -acute on chronic hypoxic respiratory failure Discharge Disposition: Home with Health Services Discharge Instruct/Medications Diet: Cardiac 2g Na,low cholest Activity: No Restrictions, As Tolerated Follow Up/Referral: Follow up with PCP at established appointment on 12/31/2024. Medications: Bactrim DS one tablet twice a day x7 days Continue all previous home medications Scheduled Bumetanide (Bumetanide), 1 TAB PO DAILY, (Reported) Dolutegravir Sodium-Lamivudine (Dovato 50-300 mg), 1 TAB PO DAILY, (Reported) Hydralazine HCl (Hydralazine HCl), 1 TAB PO TID, (Reported) Losartan Potassium (Losartan Potassium), 1 TAB PO DAILY, (Reported) Metoprolol Tartrate (Lopressor), 1 TAB PO BID, (Reported) Potassium Chloride (Potassium Chloride ER), 1 TAB PO BID, (Reported) Rosuvastatin Calcium (Rosuvastatin Calcium), 1 TAB PO DAILY, (Reported) Spironolactone (Spironolactone), 1 TAB PO DAILY, (Reported) Sulfamethoxazole W/Trimethopri (Bactrim Ds Tablet), 1 TAB PO BID Tamsulosin Hcl (Tamsulosin Hcl), 1 TAB PO DAILY, (Reported) 36 Discharge Statement: "Patient was advised to return to the ER or call 911 if any headaches, dizziness, shortness of breath, chest pain, abdominal pain, bleeding, fevers, or worsening of medical condition. Patient was counseled about treatment plan, medications, possible side effects, patientverbalized understanding. All questions were answered to the best of my ability. This discharge took greater then 30 minutes in planning, reviewing documentation, counseling the patient, and discussing with other team members." ASSESSMENT ASSESSMENT Assessment Sepsis secondary to bilateral lower extremity cellulitis Date of Service: Dec 21, 2024 Billing Provider: SOPHIE MARTIN NP Common Visit Codes: 48073-BOD/OBS DISCH DAY >30min SOPHIE MARTIN NP Dec 21, 2024 10:44
== END 2024-12-21 17:51 | disposition home health service (06) | DRG 720 ==
LOC: ER 21:10 → OVERFLOW 23:20 → TELE-WESTW 12-18 18:01
PROVIDERS: ADMIT Nurse Practitioner Acute Care; ATTEND Nurse Practitioner Acute Care
DX: A41.9 Sepsis, unspecified organism (principal); J96.21 Acute and chronic respiratory failure with hypoxia; I50.33 Acute on chronic diastolic (congestive) heart failure; Z66 Do not resuscitate; I11.0 Hypertensive heart disease with heart failure; L03.115 Cellulitis of right lower limb; I25.10 Atherosclerotic heart disease of native coronary artery without angina pectoris; L03.116 Cellulitis of left lower limb; E66.01 Morbid (severe) obesity due to excess calories; E78.5 Hyperlipidemia, unspecified; G47.33 Obstructive sleep apnea (adult) (pediatric); Z88.5 Allergy status to narcotic agent; Z88.0 Allergy status to penicillin; Z88.2 Allergy status to sulfonamides; Z79.899 Other long term (current) drug therapy; Z68.45 Body mass index [BMI] 70 or greater, adult
CPT/HCPCS: 36415; 71045; 76881; 80048; 80053; 80061; 80202; 80307; 81001; 82306; 82565; 82607; 83036; 83605; 83735; 83880; 84100; 84439; 84443; 84480; 84484; 85025; 85610; 85652; 85730; 86141; 86360; 87040; 87077; 87081; 87086; 87186; 87205; 93306; 93926; 99291; G0378; J1956; J2185; Q9956

== ENCOUNTER 2025-01-06 16:54 | Inpatient (IN) | payer MEDICAID ==
[~2025-01-06] VITALS: Ht 175.3 cm; Wt 217.5 kg
[~2025-01-06 16:54] MED LIST changes: +BACDST PO
[2025-01-06 16:56] VITALS: PULSE 103; RESP 15; O2SAT 92
--- NOTE | 2025-01-06 18:12 | ED.PDOC ---
Musculoskeletal HPI Comments This is a morbidly obese 44 year-old male who presents to the ED via wheelchair with a chief complaint of L lower extremity pain and swelling, as well as, hematuria. Patient reports having a Hx of DVT to the L leg. Patient reports an increase of swelling to the L lower extremity with no alleviating factors. Patient is currently taking Pradaxa 150mg daily for blood clots. Patient has no further complaints at this time and otherwise denies fever, chills, dizziness, LOC, fatigue, or N/V/D. Chief Complaint: Lower Extremity Time Seen by MD: 17:59 Reviewed Notes: Medications, Allergies Allergies: Coded Allergies: Codeine (Verified Allergy, Unknown, 06/30/21) Penicillins (Verified Allergy, Unknown, 06/30/21) Sulfa Antibiotics (Verified Allergy, Unknown, 06/30/21) Home Meds Active Scripts Sulfamethoxazole W/Trimethopri (Bactrim Ds Tablet) 1 Tab Tb, 1 TAB PO BID for 7 Days, #14 TAB Prov:SOPHIE MARTIN [employer] 12/21/24 Reported Medications Bumetanide (Bumetanide) 2 Mg Tab, 1 TAB PO DAILY for 90 Days, #90 12/19/24 Losartan Potassium (Losartan Potassium) 100 Mg Tab, 1 TAB PO DAILY for 90 Days, #90 12/19/24 Tamsulosin Hcl (Tamsulosin Hcl) 0.4 Mg Cap, 1 TAB PO DAILY for 90 Days, #90 12/19/24 Potassium Chloride (Potassium Chloride ER) 20 Meq Tab, 1 TAB PO BID for 30 Days, #60 12/19/24 Spironolactone (Spironolactone) 25 Mg Tab, 1 TAB PO DAILY for 30 Days, #30 12/19/24 Hydralazine HCl (Hydralazine HCl) 25 Mg Tab, 1 TAB PO TID for 30 Days, #90 12/19/24 Metoprolol Tartrate (Lopressor) 25 Mg Tb, 1 TAB PO BID for 30 Days, #60 12/19/24 Dolutegravir Sodium-Lamivudine (Dovato 50-300 mg) 1 Tab Tab, 1 TAB PO DAILY for 30 Days, #30 12/19/24 Rosuvastatin Calcium (Rosuvastatin Calcium) 40 Mg Tab, 1 TAB PO DAILY for 90 Days, #90 12/19/24 Information Source: Patient Mode of Arrival: Wheelchair Location: Left Extremity Location: Leg Severity: Moderate Onset of Symptoms: Spontaneous Symptoms: Swelling, Pain DVT Risk Factors: CHF Associated signs and symptoms: Swelling, Leg pain, Other (hematuria ) Past Medical History PAST MEDICAL HISTORY: CHF, High Lipids, HTN Past Medical History (Other): DVT, HIV Family History Family History: Unknown Social History Smoker: Non-Smoker Alcohol: Denies ETOH Use Drugs: Denies Drug Use Lives In: Home Constitutional: denies: chills, diaphoresis, fatigue, fever, malaise, sweats, weakness, others EENTM: denies: blurred vision, double vision, ear bleeding, ear discharge, ear drainage, ear pain, ear ringing, eye pain, eye redness, hearing loss, mouth pain, mouth swelling, nasal discharge, nose bleeding, nose congestion, nose pain, photophobia, tearing, throat pain, throat swelling, voice changes, others Respiratory: denies: cough, hemoptysis, orthopnea, SOB at rest, shortness of breath, SOB with excertion, stridor, wheezing, others Cardiovascular: denies: chest pain, dizzy spells, diaphoresis, Dyspnea on exertion, edema, irregular heart beat, left arm pain, lightheadedness, palpitations, PND, syncope, others Gastrointestinal: denies: abdomen distended, abdominal pain, blood streaked bowels, constipated, diarrhea, dysphagia, difficulty swallowing, hematemesis, melena, nausea, poor appetite, poor fluid intake, rectal bleeding, rectal pain, vomiting, others Genitourinary: reports: hematuria; denies: burning, dysuria, flank pain, frequency, incontinence, penile discharge, penile sore, pain, testicle pain, testicle swelling, urgency, others Neurological: denies: dizziness, fainting, headache, left sided numbness, left sided weakness, numbness, paresthesia, pre-existing deficit, right sided numbness, right sided weakness, seizure, speech problems, tingling, tremors, weakness, others Musculoskeletal: reports: joint pain, joint swelling; denies: back pain, gout, muscle pain, muscle stiffness, neck pain, others Integumetry: denies: bruises, change in color, change in hair/nails, dryness, laceration, lesions, lumps, rash, wounds, others Allergic/Immunocompromised: denies: Difficulty Healing, Frequent Infections, Hives, Itching, others Hematologic/Lymphatic: denies: anemia, blood clots, easy bleeding, easy bruising, swollen glands, others Endocrine: denies: excessive hunger, excessive sweating, excessive thirst, excessive urination, flushing, intolerance to cold, intolerance to heat, unexplained weight gain, unexplained weight loss, others Psychiatric: denies: anxiety, bipolar disorder, depression, hopeless, panic disorder, schizophrenia, sleepless, suicidal, others All Other Systems: Reviewed and Negative Physical Exam General Appearance: Moderate Distress, Obese HEENT: Normal ENT Inspection, PERRL/EOMI Neck: Full Range of Motion, Non-Tender, Normal, Normal Inspection Respiratory: Chest Non-Tender, Lungs Clear, No Accessory Muscle Use, No Respiratory Distress, Normal Breath Sounds Cardiovascular: No Edema, No JVD, No Murmur, No Gallop, Normal Peripheral Pulses, Regular Rate/Rhythm Breast Exam: Deferred Gastrointestinal: No Organomegaly, Non Tender, No Pulsatile Mass, Normal Bowel Sounds, Soft, Other (Morbid obesity) Genitalia: Deferred Pelvic: Deferred Rectal: Deferred Extremities: Inflammation, Leg edema, Pedal edema, Swelling, Tender, Other (Stasis dermatitis bilaterally) Neurologic: Alert, Motor Weakness Cerebellar Function: Normal Reflexes: NOT DONE Skin: Wounds Peripheral Pulses: 1+ carotid (R), 1+ carotid (L) Lymphatic: No Adenopathy Was a procedure done? Was a procedure done?: No Differential Diagnosis EXT Differential Diagnosis: Cellulitis, Deep Vein Thrombosis, Gout, DJD, Arthritis X-Ray, Labs, Meds, VS Vital Signs Date Time Temp Pulse Resp B/P (MAP) Pulse Ox O2 Delivery O2 Flow Rate FiO2 01/06/25 18:00 94 20 145/73 (97) 95 01/06/25 17:01 106 01/06/25 16:58 98.2 106 17 136/81 92 98.2 01/06/25 16:56 103 15 92 Room Air* 0 21 01/06/25 16:56 98.2 103 15 128/73 (91) 92 98.2 Lab Test 01/06/25 18:16 Range/Units White Blood Count 11.1 H 4.4-10.8 10^3/uL Red Blood Count 4.32 L 4.5-5.90 10^6/uL Hemoglobin 11.3 L 13.5-17.5 g/dL Hematocrit 35.8 L 41.0-53.0 % Mean Corpuscular Volume 82.8 80.0-100.0 fL Mean Corpuscular Hemoglobin 26.2 L 28.0-32.0 pg Mean Corpuscular Hemoglobin Concent 31.6 L 32.0-36.0 g/dL Red Cell Distribution Width 17.6 H 11.8-14.3 % Platelet Count 212 140-450 10^3/uL Mean Platelet Volume 8.7 6.9-10.8 fL Neutrophils (%) (Auto) 79.8 37.0-80.0 % Lymphocytes (%) (Auto) 12.0 10.0-50.0 % Monocytes (%) (Auto) 6.7 0.0-12.0 % Eosinophils (%) (Auto) 1.4 0.0-7.0 % Basophils (%) (Auto) 0.1 0.0-2.0 % Neutrophils # (Auto) 8.9 H 1.6-8.6 10 ^3/uL Lymphocytes # (Auto) 1.3 0.4-5.4 10 ^3/uL Monocytes # (Auto) 0.7 0-1.3 10 ^3/uL Eosinophils # (Auto) 0.2 0-0.8 10 ^3/uL Basophils # (Auto) 0 0-0.2 10 ^3/uL Nucleated Red Blood Cells 0.0 % Prothrombin Time 11.5 9.3-11.8 sec Prothrombin Time INR 1.09 0.9-1.15 Activated Partial Thromboplast Time 31.9 24.5-34.5 SEC Sodium Level 139 136-145 mmol/L Potassium Level 3.8 3.5-5.1 mmol/L Chloride Level 102 98-107 mmol/L Carbon Dioxide Level 28 20-31 mmol/L Anion Gap 9 5-15 Blood Urea Nitrogen 26 H 9-23 mg/dL Creatinine 3.12 H 0.700-1.30 mg/dL Glomerular Filtration Rate Calc 25 >90 mL/min BUN/Creatinine Ratio 8.3 L 10.0-20.0 Serum Glucose 98 74-106 mg/dL Calcium Level 8.7 8.7-10.4 mg/dL Magnesium Level 1.8 1.6-2.6 mg/dL Total Bilirubin 0.5 0.2-1.0 mg/dL Aspartate Amino Transferase (AST) 14 13-40 U/L Alanine Aminotransferase (ALT) 11 7-40 U/L Alkaline Phosphatase 55 46-116 U/L B-Type Natriuretic Peptide 11.38 0-100 pg/mL Total Protein 7.3 5.7-8.2 g/dL Albumin 3.7 3.2-4.8 g/dL Lipase 27 12-53 U/L Current Medications Medications (Trade) Dose Ordered Sig/Cookie Route Start Time Stop Time Status Last Admin Sodium Chloride 1,000 ml @ 150 mls/hr [id number] ONCE IV 01/06/25 18:00 01/07/25 00:39 01/06/25 19:23 X-Ray, Labs, Meds, VS Comment Course in the emergency department eventful patient came in because of swelling of the left lower extremity was painful and also gross hematuria patient is on Pradaxa Chest x-ray is negative Ultrasound negative for [place] [address]33 with 79.8% neutrophils H&H 11 and 35.8 INR 1.09 CMP GFR 25 Magnesium 1.8 BNP 11.38 Lipase 27 Patient will be admitted for further care Time of 1ST Reevaluation: 18:44 Reevaluation 1ST: Unchanged Patient Education/Counseling: Diagnosis, Treatment, Prognosis, Need For Follow Up Family Education/Counseling: Diagnosis, Treatment, Prognosis, Need For Follow Up, Other (Spouse at bedside) Departure 1 Departure Time of Disposition: 21:51 Impression: Primary Impression: Gross hematuria Additional Impressions: Venous stasis dermatitis of both lower extremities CKD (chronic kidney disease) stage 4, GFR 15-29 ml/min History of HIV infection Morbid obesity CAD S/P percutaneous coronary angioplasty Ruled Out: DVT (deep venous thrombosis) Disposition: ADMITTED INPATIENT Admit to: Tele Condition: Serious Critical Care Note Critical Care Time?: No Stability Stability form required: Yes Heart Score Heart Score: Heart Score Response (Comments) Value History N/A 0 EKG N/A 0 Age <45 0 Risk Factors >3 or Hx ASHD 2 Troponin N/A 0 Total 2 I personally scribed for ROBERT GALINDO MD ([email or web address]) on 01/06/25 at 18:12. Electronically submitted by Maryjane WilkersonM[facility]). ROBERT GALINDO MD Jan 06, 2025 18:12
[2025-01-06 18:42] LABS: Hematocrit 35.8 % (41.0-53.0); Hemoglobin 11.3 g/dL (13.5-17.5); Mean Corpuscular Hemoglobin 26.2 pg (28.0-32.0); Mean Corpuscular Volume 82.8 fL (80.0-100.0); Nucleated Red Blood Cells % 0.0 %
[2025-01-06 18:57] LABS: Alanine Aminotransferase 11 U/L (7-40); Albumin 3.7 g/dL (3.2-4.8); Alkaline Phosphatase 55 U/L (46-116); Anion Gap 9 (5-15); BUN/Creatinine Ratio 8.3 (10.0-20.0); Calcium 8.7 mg/dL (8.7-10.4); Carbon Dioxide 28 mmol/L (20-31); Chloride 102 mmol/L (98-107); Glucose 98 mg/dL (74-106); Lipase 27 U/L (12-53); Magnesium 1.8 mg/dL (1.6-2.6); Potassium 3.8 mmol/L (3.5-5.1); Sodium 139 mmol/L (136-145); Total Protein 7.3 g/dL (5.7-8.2)
[2025-01-06 18:58] LABS: Bilirubin, Total 0.5 mg/dL (0.2-1.0)
[2025-01-06 19:04] LABS: Blood Urea Nitrogen 26 mg/dL (9-23); INR 1.09 (0.9-1.15); Partial Thromboplastin Time 31.9 SEC (24.5-34.5); Prothrombin Time 11.5 sec (9.3-11.8)
--- NOTE | 2025-01-06 19:08 | DVH ---
CLINICAL HISTORY: dvt TECHNIQUE: Color and duplex doppler imaging of the left lower extremity veins was performed. Vessel c ompression if possible was also performed. WID: COMPARISON: US LEFT LOWER EXTREMITY ULTRASOUN on DOS: 12/17/24 FINDINGS: Limited exam due to patient body habitus. Left common femoral vein: Normal compressibility and flow. Left femoral vein: Not visualized. Left popliteal vein: Normal flow. IMPRESSION: 1. Limited study due to patient's body habitus. 2. NO SONOGRAPHIC EVIDENCE FOR DEEP VENOUS THROMBOSIS IN THE LEFT LOWER EXTREMITY VEINS. 3. Nonvisualization of the left femoral vein.
[2025-01-06] MEDS: SODIUM CHLORIDE 0.9% 1,000 ML IV ONE (19:09)
--- NOTE | 2025-01-06 19:22 | DVH ---
CHEST RADIOGRAPH Indication: sob Technique: Single frontal view of the chest was obtained Comparison: XY CHEST XRAY 1 VIEW on DOS: 12/18/24 FINDINGS: Lines and Tubes: None Lungs: No focal consolidation. Pleura: No effusion. No pneumothorax. Cardiomediastinal contours: Unremarkable Bones: No acute osseous abnormality. IMPRESSION: 1. No acute cardiopulmonary disease.
[2025-01-06] MEDS ORDERED: CALCIUM GLUC 1,000mg/50ml-NS 50 ML IV ONE (20:45)
[2025-01-06] MEDS ORDERED: SODIUM BICARB 8.4% 50Meq/50ml SYR Vial IV ONE (20:45)
[2025-01-06] MEDS ORDERED: ONDANSETRON HCL 4 MG/2 ML VIAL IV PRN (22:15)
[2025-01-06] MEDS ORDERED: DOCUSATE SOD 100 MG CAP PO PRN (22:15)
--- NOTE | 2025-01-06 22:36 | DVHHP2 ---
History of Present Illness Reason for Visit: Gross hematuria History of Present Illness The patient is a 44-year-old male severely obese with past medical history of CHF, hyperlipidemia, DVT, HIV, and hypertension who presented to [facility] ED with complaint of left lower extremity swelling. Patient reports and increased left lower extremity swelling associated with hematuria, getting worse that prompted this visit. Patient was seen and evaluated in the ED, laboratory data shows WBC 11.1, hemoglobin 11.3, hematocrit 35.8, platelets 212, sodium 139, potassium 3.8, BUN 26, creatinine 3.12, GFR 25, glucose 98, calcium 8.7, BNP 11.38, lipase 27, magnesium 1.8, blood pressure 145/73, heart rate 94, temperature 98.2 F, O2 saturation 95% on room air. Extremity ultrasound showed no sonographic evidence for deep venous thrombosis in the left lower extremity veins. Please see medication orders section in the computer. On my assessment, patient denied chest pain, no headache, dizziness, diaphoresis, shortness of breaths, no diarrhea, nausea, vomiting, fever, no chills. Patient was admitted for further evaluation and medical management. Past Medical History Morbid obesity, CHF, High Lipids, HTN, DVT, HIV Past Surgical History Left foot amputation Family History Reviewed, noncontributory to the management of this case. Past Social History The patient lives at home, denies smoking, alcohol or illicit drugs abuse. Review of Systems Constitutional: Yes: Weakness, Other (Morbid obesity); No: Fever, Chills, Sweats, Malaise Eyes: No: Pain, Vision change, Conjunctivae inflammation, Eyelid inflammation, Other, Redness ENT: No: Ear pain, Ear discharge, Nose pain, Nose discharge, Nose congestion, Mouth pain, Mouth swelling, Throat pain, Throat swelling, Other Respiratory: No: Cough, Dry, Shortness of breath, SOB with excertion, Wheezing, Hemoptysis, Pleuritic Pain, Sputum, Wheezing, Other Cardiovascular: No: Chest Pain, Palpitations, Orthopnea, Paroxysmal Noc. Dyspnea, Edema, Lt Headedness, Other Gastrointestinal: No: Nausea, Vomiting, Abdominal Pain, Diarrhea, Constipation, Melena, Hematochezia, Other Genitourinary: No Dysuria, No Frequency, No Incontinence; Hematuria; No Retention, No Other Musculoskeletal: other (Left foot amputation, Joint pain, joint swelling.); No: neck pain, shoulder pain, arm pain, back pain, hand pain, leg pain, foot pain Skin: No: Rash, Lesions, Jaundice, Bruising, Other Neurological: No: Weakness, Numbness, Incoordination, Change in speech, Confusion, Seizures, Other Allergies: Coded Allergies: Codeine (Verified Allergy, Unknown, 06/30/21) Penicillins (Verified Allergy, Unknown, 06/30/21) Sulfa Antibiotics (Verified Allergy, Unknown, 06/30/21) Medications Current Medications Medications Dose Ordered Sig/Cookie Route Start Time Stop Time Status Last Admin Dose Admin Aspirin 81 mg DAILY PO 01/07/25 10:00 Atorvastatin Calcium 20 mg HS PO 01/07/25 22:00 Metoprolol Tartrate 50 mg BID PO 01/07/25 10:00 Amlodipine Besylate 5 mg DAILY PO 01/07/25 10:00 Levofloxacin/ Dextrose 100 ml @ 100 mls/hr Q48H IV 01/06/25 22:15 UNV Patient Own Medication once a day DAILY PO 01/07/25 10:00 UNV Clonidine HCl 0.1 mg Q4HP PRN PO 01/06/25 22:15 Sodium Chloride 10 ml Q8HR IV 01/07/25 06:00 Ondansetron HCl 4 mg Q4HP PRN IV 01/06/25 22:15 Docusate Sodium 100 mg BIDPRN PRN PO 01/06/25 22:15 Acetaminophen 650 mg Q6HP PRN PO 01/06/25 22:15 Exam Vital Signs Vital Signs Date Time Temp Pulse Resp B/P (MAP) Pulse Ox O2 Delivery O2 Flow Rate FiO2 01/06/25 21:00 98 01/06/25 18:00 20 145/73 (97) 95 01/06/25 16:58 98.2 98.2 01/06/25 16:56 Room Air* 0 21 General Appearance: Alert, Oriented X3, Cooperative, No acute distress HEENT: Atraumatic, PERRLA, EOMI, Mucous membr. moist/pink Respiratory: Normal air movement Cardiovascular: Regular rate, Normal S1, Normal S2, No murmurs Abdominal: Normal bowel sounds, Soft, No tenderness, No hepatospenomegaly, No masses Extremities: No clubbing, No cyanosis, Normal pulses, Other (Left lower extremity swelling, left foot amputation) Skin: No rashes, No significant lesion Neuro: Normal speech, Normal tone, Sensation intact, Cranial nerves 3-12 NL, Reflexes 2+, Other (Weakness) Psych/Mental Status: Mental status NL, Mood NL Labs/Xrays Labs Test 01/06/25 18:16 Range/Units White Blood Count 11.1 H 4.4-10.8 10^3/uL Red Blood Count 4.32 L 4.5-5.90 10^6/uL Hemoglobin 11.3 L 13.5-17.5 g/dL Hematocrit 35.8 L 41.0-53.0 % Mean Corpuscular Volume 82.8 80.0-100.0 fL Mean Corpuscular Hemoglobin 26.2 L 28.0-32.0 pg Mean Corpuscular Hemoglobin Concent 31.6 L 32.0-36.0 g/dL Red Cell Distribution Width 17.6 H 11.8-14.3 % Platelet Count 212 140-450 10^3/uL Mean Platelet Volume 8.7 6.9-10.8 fL Neutrophils (%) (Auto) 79.8 37.0-80.0 % Lymphocytes (%) (Auto) 12.0 10.0-50.0 % Monocytes (%) (Auto) 6.7 0.0-12.0 % Eosinophils (%) (Auto) 1.4 0.0-7.0 % Basophils (%) (Auto) 0.1 0.0-2.0 % Neutrophils # (Auto) 8.9 H 1.6-8.6 10 ^3/uL Lymphocytes # (Auto) 1.3 0.4-5.4 10 ^3/uL Monocytes # (Auto) 0.7 0-1.3 10 ^3/uL Eosinophils # (Auto) 0.2 0-0.8 10 ^3/uL Basophils # (Auto) 0 0-0.2 10 ^3/uL Nucleated Red Blood Cells 0.0 % Prothrombin Time 11.5 9.3-11.8 sec Prothrombin Time INR 1.09 0.9-1.15 Activated Partial Thromboplast Time 31.9 24.5-34.5 SEC Sodium Level 139 136-145 mmol/L Potassium Level 3.8 3.5-5.1 mmol/L Chloride Level 102 98-107 mmol/L Carbon Dioxide Level 28 20-31 mmol/L Anion Gap 9 5-15 Blood Urea Nitrogen 26 H 9-23 mg/dL Creatinine 3.12 H 0.700-1.30 mg/dL Glomerular Filtration Rate Calc 25 >90 mL/min BUN/Creatinine Ratio 8.3 L 10.0-20.0 Serum Glucose 98 74-106 mg/dL Calcium Level 8.7 8.7-10.4 mg/dL Magnesium Level 1.8 1.6-2.6 mg/dL Total Bilirubin 0.5 0.2-1.0 mg/dL Aspartate Amino Transferase (AST) 14 13-40 U/L Alanine Aminotransferase (ALT) 11 7-40 U/L Alkaline Phosphatase 55 46-116 U/L B-Type Natriuretic Peptide 11.38 0-100 pg/mL Total Protein 7.3 5.7-8.2 g/dL Albumin 3.7 3.2-4.8 g/dL Lipase 27 12-53 U/L PATIENT: BIRD HOOD II MACCT: [id number] UNIT: [id number] : 1980 LOC: ER ROOM / BED: / AGE / SEX: 44 / M ADM STATUS: REG ER SERVICE [id number] ORDERING PHYSICIAN: ROBERT GALINDO MD PROCEDURE(s): LLDVT - LT Lower DVT REASON: dvt ORDER NUMBER(s): [id number], ACCESSION NUMBER(s): [id number] CLINICAL HISTORY: dvt TECHNIQUE: Color and duplex doppler imaging of the left lower extremity veins was performed. Vessel compression if possible was also performed. WID: COMPARISON: US LEFT LOWER EXTREMITY ULTRASOUN on DOS: 12/17/24 FINDINGS: Limited exam due to patient body habitus. Left common femoral vein: Normal compressibility and flow. Left femoral vein: Not visualized. Left popliteal vein: Normal flow. IMPRESSION: 1. Limited study due to patient's body habitus. 2. NO SONOGRAPHIC EVIDENCE FOR DEEP VENOUS THROMBOSIS IN THE LEFT LOWER EXTREMITY VEINS. 3. Nonvisualization of the left femoral vein. ORDERING PHYSICIAN: ROBERT GALINDO MD PROCEDURE(s): CXR1 - CHEST XRAY 1 VIEW REASON: sob ORDER NUMBER(s): [id number], ACCESSION NUMBER(s): [id number] CHEST RADIOGRAPH Indication: sob Technique: Single frontal view of the chest was obtained Comparison: XY CHEST XRAY 1 VIEW on DOS: 12/18/24 FINDINGS: Lines and Tubes: None Lungs: No focal consolidation. Pleura: No effusion. No pneumothorax. Cardiomediastinal contours: Unremarkable Bones: No acute osseous abnormality. IMPRESSION: 1. No acute cardiopulmonary disease. SEPSIS Sepsis Screen Date sepsis recognized/suspect: Jan 06, 2025 Time Sepsis recognized/suspect: 1701 Recent Procedure: No On Antibiotic Therapy: No Respiratory Rate >20: No Heart Rate >90: Yes Temp<36 C (96.8 F) or >38.3 C: No SBP <90 or MAP <65 mmHG: No New Acute Mental Status Change: No Is the patient on CPAP, BIPAP,: No Physician Orders Urinalysis (01/06/25 17:58) Heplock Iv (01/06/25 17:58) Wallpaperer Helper (01/06/25 17:58) Blood Pressure (01/06/25 17:58) Sodium Chloride 0.9% (01/06/25 18:00) Insert Pendleton Catheter QSHIFT (01/06/25 17:58) Lt Lower Dvt (01/06/25 17:58) Chest Xray 1 View (01/06/25 18:41) *Dr. Karen Galvez -Da Ivory (01/06/25 22:05) Aspirin Tablet (01/07/25 10:00) Atorvastatin (Lipitor) (01/07/25 22:00) Metoprolol Tartrate Tablet (Lopressor Ta (01/07/25 10:00) Amlodipine Tablet (Norvasc Tablet) (01/07/25 10:00) Levofloxacin 500mg (Levaquin 500mg/ 100m (01/06/25 22:15) (Nf) Dovato (01/07/25 10:00) Clonidine Hcl Tablet (Catapres Tablet) (01/06/25 22:15) Allergies (01/06/25 22:05) Code Status (01/06/25 22:05) Renal Standard(2gna,3gk,Lopho) (01/07/25 Breakfast) Sodium Chloride Lock (Saline Lock Ns) (01/07/25 06:00) Oxygen Per Hour (01/06/25 22:05) Ondansetron Hcl (Zofran) (01/06/25 22:15) Docusate Sodium Capsule (Colace Capsule) (01/06/25 22:15) Complete Blood Count (01/07/25 04:00) Comprehensive Metabolic Panel (01/07/25 04:00) Condition: Serious (01/06/25 22:05) Acetaminophen Tablet (Tylenol Tablet) (01/06/25 22:15) Bedrest With Bathroom Privileg (01/06/25 22:05) Vital Signs Date Time Temp Pulse Resp B/P (MAP) Pulse Ox O2 Delivery O2 Flow Rate FiO2 01/06/25 21:00 98 01/06/25 18:00 94 20 145/73 (97) 95 01/06/25 17:01 106 01/06/25 16:58 98.2 106 17 136/81 92 98.2 01/06/25 16:56 103 15 92 Room Air* 0 21 01/06/25 16:56 98.2 103 15 128/73 (91) 92 98.2 Laboratory Tests Test 01/06/25 18:16 White Blood Count 11.1 10^3/uL (4.4-10.8) H Medications Medications Dose Ordered Sig/Cookie Route Start Time Stop Time Status Last Admin Dose Admin Sodium Chloride 1,000 ml @ 150 mls/hr Q6H40M ONCE IV 01/06/25 18:00 01/07/25 00:39 01/06/25 19:23 150 MLS/HR Assessment/Plan Assessment/Plan Gross hematuria Morbid obesity Venous stasis dermatitis of both lower extremities CKD (chronic kidney disease) stage 4, GFR 15-29 ml/min History of HIV infection CAD S/P percutaneous coronary angioplasty Plan 1. Admit to telemetry unit 2. Breathing treatment 3. Pain control management 4. IV antibiotic management 5. Management of fluids and electrolytes 6. Consultation for Urology/Nephrology 7. Diagnostic test extremity ultrasounds 8. DVT prophylaxis on aspirin 9. Repeat labs CBC, CMP in a.m. 10. Home medication reviewed and reconciled 11. Continue with current medical management 12. Treatment plan discussed with patient and RN. Patient verbalized understanding. Plan discussed with: Patient, Other (RN) My Orders Orders - ROSA VANCE DNP Procedure Category Date Status Time *Dr. Karen Galvez -Da CONS 01/06/25 Transmitted Ivory 22:05 Aspirin Tablet PHA 10/27/25 In Process 10:00 Atorvastatin (Lipitor) PHA 01/07/25 In Process 22:00 Metoprolol Tartrate PHA 01/07/25 In Process Tablet (Lopressor Ta 10:00 Amlodipine Tablet PHA 01/07/25 In Process (Norvasc Tablet) 10:00 Levofloxacin 500mg PHA 01/06/25 Logged (Levaquin 500mg/ 100m 22:15 (Nf) Dovato PHA 01/07/25 Logged 10:00 Clonidine Hcl Tablet PHA 01/06/25 In Process (Catapres Tablet) 22:15 Allergies ROMI 01/06/25 In Process 22:05 Code Status CODE 01/06/25 Transmitted 22:05 Renal DIET 01/07/25 Transmitted Standard(2gna,3gk,Lopho) Breakfast Sodium Chloride Lock PHA 01/07/25 In Process (Saline Lock Ns) 06:00 Oxygen Per Hour RT 01/06/25 Transmitted 22:05 Ondansetron Hcl PHA 01/06/25 In Process (Zofran) 22:15 Docusate Sodium PHA 01/06/25 In Process Capsule (Colace 22:15 Complete Blood Count LAB 01/07/25 Verified 04:00 Comprehensive LAB 01/07/25 Verified Metabolic Panel 04:00 Condition: Serious ROMI 01/06/25 In Process 22:05 Acetaminophen Tablet PHA 01/06/25 In Process (Tylenol Tablet) 22:15 Bedrest With Bathroom ROMI 01/06/25 In Process Privileg 22:05 Problem List: (1) Gross hematuria (2) Morbid obesity (3) Venous stasis dermatitis of both lower extremities (4) CKD (chronic kidney disease) stage 4, GFR 15-29 ml/min (5) History of HIV infection (6) CAD S/P percutaneous coronary angioplasty Date of Service: Jan 06, 2025 Billing Provider: ROSA VACNE DNP Common Visit Codes: [id number] INP/OBS CARE (HIGH) ROSA VANCE DNP Jan 06, 2025 22:36
[2025-01-06] MEDS ORDERED: NITROGLYCERIN 0.4 MG SL TAB SL PRN (22:45)
[2025-01-06] MEDS ORDERED: MORPHINE SULFATE INJ 2 MG/ml SYRG IV PRN (22:45)
[2025-01-07] VITALS (10 sets, daily range): BP systolic 125–143; BP diastolic 64–84; PULSE 74–97; RESP 14–20; TEMP 96.5–98.6; O2SAT 95–98
[2025-01-07 04:37] LABS: Hemoglobin 10.7 g/dL (13.5-17.5); Nucleated Red Blood Cells % 0.0 %
[2025-01-07 04:39] LABS: Hematocrit 34.1 % (41.0-53.0); Mean Corpuscular Hemoglobin 25.7 pg (28.0-32.0); Mean Corpuscular Volume 81.6 fL (80.0-100.0)
[2025-01-07 04:53] LABS: Alanine Aminotransferase 11 U/L (7-40); Albumin 3.6 g/dL (3.2-4.8); Alkaline Phosphatase 54 U/L (46-116); Anion Gap 11 (5-15); BUN/Creatinine Ratio 8.3 (10.0-20.0); Carbon Dioxide 24 mmol/L (20-31); Chloride 103 mmol/L (98-107); Glucose 100 mg/dL (74-106); Potassium 3.8 mmol/L (3.5-5.1); Sodium 138 mmol/L (136-145); Total Protein 7.2 g/dL (5.7-8.2)
[2025-01-07 04:54] LABS: Bilirubin, Total 0.5 mg/dL (0.2-1.0)
[2025-01-07 04:59] LABS: Blood Urea Nitrogen 26 mg/dL (9-23); Calcium 8.5 mg/dL (8.7-10.4)
[2025-01-07] MEDS: SODIUM CHLOR 0.9% PF (SALINE LOCK) 10ML VIAL/SYR IV SCH (05:12)
[2025-01-07] MEDS: METOPROLOL TARTRATE 50 MG TAB PO SCH (09:41)
--- NOTE | 2025-01-07 14:11 | DVHPN2 ---
Assessment/Plan Assessment/Plan progress note 44 M with HIV, morbid obesity, chronic venous stasis, DVT on pradaxa, severe RV failure admitted for gross hmaturia. pt was compliant on meds. had prior w/u for bariatric surgery but not completed yet physical exam aox4 on 2lNC morbidly obese unable to auscultate abdomen soft b/l chronic venous stasis, L LE more erythematous L toe amputation labs ekg imaging reviewed assessment and plan gross hematuria GONZÁLEZ ATN severe RV failure HFpEF HIV acute on chronic diastolic HF morbid obesity IVONNE HLD preDM chronic pain chronic venous stasis DVT LLE on pradaxa celulitis? 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 on asa ceftriaxone bipap at night bumex, aldactone resume home meds resume pradaxa, dovato CD4 VL pain management o2 maintain spo2 >92 trend cr after diuresis blood culture strict io urine studies, renal US diet cardiac dvt ppx on pradaxa prognosis poor full code Plan discussed with: Patient Date of Service: Jan 07, 2025 Billing Provider: ANNA MATTHEWS MD Common Visit Codes: [id number] INP/OBS CARE(HIGH) ANNA MATTHEWS MD Jan 07, 2025 14:10
--- NOTE | 2025-01-07 14:49 | DVH ---
CLINICAL HISTORY: GONZÁLEZ TECHNIQUE: Complete ultrasound exam of the kidneys and bladder was performed. COMPARISON: None FINDINGS: Evaluation is limited due to suboptimal visualization of the kidneys. The probable right kidney measures 15.3 cm. There is no definite focal parenchymal abnormality or jurgen dence for stone. There is no hydronephrosis. The left kidney has normal echogenicity and measures 14.7 cm. There is no focal parenchymal abnormal ity or evidence for stone. There is no hydronephrosis. The bladder is not seen. IMPRESSION: Very limited exam. No definite acute sonographic abnormality of the kidneys. Probable nephromegaly. Bladder not seen.
--- NOTE | 2025-01-07 18:31 | DVHINCON2 ---
Date of service: Jan 07, 2025 Referring Physician Hospitalist Reason for Consultation gross hematuria History of Present Illness History Source: Patient, Family, RN Notes, MD Notes, Old Records Exam Limitations: No limitations HPI This is a morbidly obese 44 year-old male who presents to the ED via wheelchair with a chief complaint of L lower extremity pain and swelling, as well as, hematuria. Patient reports having a Hx of DVT to the L leg. Patient reports an increase of swelling to the L lower extremity with no alleviating factors. Patient is currently taking Pradaxa 150mg daily for blood clots. Patient has no further complaints at this time and otherwise denies fever, chills, dizziness, LOC, fatigue, or N/V/D. Pt was seen here 12/17/24 for cellulitis and was discharged with plans to continue Bactrim but he reports he never got the prescription. He said he attempted to call here for 5 days without success. Yesterday he had gross hematuria that was painless. No hx of kidney stones or other issue. Home Meds Active Scripts Sulfamethoxazole W/Trimethopri (Bactrim Ds Tablet) 1 Tab Tb, 1 TAB PO BID for 7 Days, #14 TAB Prov:SOPHIE MARTIN ANIMAL RIDE ATTENDANT 12/21/24 Reported Medications Bumetanide (Bumetanide) 2 Mg Tab, 1 TAB PO DAILY for 90 Days, #90 12/19/24 Losartan Potassium (Losartan Potassium) 100 Mg Tab, 1 TAB PO DAILY for 90 Days, #90 12/19/24 Tamsulosin Hcl (Tamsulosin Hcl) 0.4 Mg Cap, 1 TAB PO DAILY for 90 Days, #90 12/19/24 Potassium Chloride (Potassium Chloride ER) 20 Meq Tab, 1 TAB PO BID for 30 Days, #60 12/19/24 Spironolactone (Spironolactone) 25 Mg Tab, 1 TAB PO DAILY for 30 Days, #30 12/19/24 Hydralazine HCl (Hydralazine HCl) 25 Mg Tab, 1 TAB PO TID for 30 Days, #90 12/19/24 Metoprolol Tartrate (Lopressor) 25 Mg Tb, 1 TAB PO BID for 30 Days, #60 12/19/24 Dolutegravir Sodium-Lamivudine (Dovato 50-300 mg) 1 Tab Tab, 1 TAB PO DAILY for 30 Days, #30 12/19/24 Rosuvastatin Calcium (Rosuvastatin Calcium) 40 Mg Tab, 1 TAB PO DAILY for 90 Days, #90 12/19/24 Past Medical History Cardiac: AFIB, CAD, CHF, Hyperlipidemia Pulmonary: Other (IVONNE) Psychiatric: Anxiety, Depression Infectious Disease: HIV, Other (sepsis) Renal/: UTI, Hematuria, CKD Dermatology: Cellulitis Past Surgical History: Amputation, PTCA Patient Family History: Cardiovascular disease G8 MOTHER G8 FATHER Diabetes mellitus G8 MOTHER Smoker: No Hx (Negative) Alocohol: None Drugs: None Domestic Violence: Neg Review of Systems Genitourinary: Hematuria Skin: Dryness Hemotologic/Lymphatic: Easily bleeding H&P Exam Vital Signs Vital Signs Date Time Temp Pulse Resp B/P (MAP) Pulse Ox O2 Delivery O2 Flow Rate FiO2 01/07/25 16:00 98.5 76 18 121/58 (79) 99 98.5 01/07/25 14:18 2.0 28 01/07/25 11:30 Nasal Cannula* General Appeara: Well developed, Well nourished, Normal Appearance, Obese Neuro/Mental St: Alert, Oriented Appearance: Appropriate appearance, Appropriate insight Eye contact/ Speech: Cooperative, Good eye contact, Normal speech Labs/Xrays [place] [address] Ph: [phone] DIAGNOSTIC IMAGING Diagnostic Imaging Report : [id number] Signed PATIENT: BIRD HOOD II MACCT: [id number] UNIT: [id number] : 1980 LOC: OVERFLOW ROOM / BED: [address] [place] [address] AGE / SEX: 44 / M ADM STATUS: ADM IN SERVICE 1407 ORDERING PHYSICIAN: ANNA MATTHEWS MD PROCEDURE(s): KIDUS - KIDNEY REASON: GONZÁLEZ ORDER NUMBER(s): [id number], ACCESSION NUMBER(s): [id number] CLINICAL HISTORY: GONZÁLEZ TECHNIQUE: Complete ultrasound exam of the kidneys and bladder was performed. COMPARISON: None FINDINGS: Evaluation is limited due to suboptimal visualization of the kidneys. The probable right kidney measures 15.3 cm. There is no definite focal parenchymal abnormality or evidence for stone. There is no hydronephrosis. The left kidney has normal echogenicity and measures 14.7 cm. There is no focal parenchymal abnormality or evidence for stone. There is no hydronephrosis. The bladder is not seen. IMPRESSION: Very limited exam. No definite acute sonographic abnormality of the kidneys. Probable nephromegaly. Bladder not seen. ATED BY: SHAY GALLOWAY MD DICTATED DATE/TIME: 01/07/251445 SIGNED BY: SHAY GALLOWAY MD SIGNED DATE/TIME: 01/07/251445 CC: Labs Test 01/07/25 14:44 01/07/25 11:30 01/07/25 04:09 01/06/25 18:16 Range/Units Urine Color Light-orange Yellow Urine Clarity Turbid H Clear Urine pH 5.5 5.0-9.0 Urine Specific [place] 1.014 1.001-1.035 Urine Protein 1+ H Negative Urine Ketones Negative Negative Urine Blood 3+ H Negative /uL Urine Nitrite Negative Negative Urine Bilirubin Negative Negative Urine Urobilinogen Normal Negative mg/dL Urine Leukocyte Esterase Negative Negative /uL Urine RBC 94 0 - 3 /hpf Urine Microscopic WBC 5 H 0-3 /HPF Urine Squamous Epithelial Cells Few <5 /hpf Urine Amorphous Crystals Few None Seen /hpf Urine Bacteria Few H None Seen /hpf Urine Mucus Few None Seen Urine Glucose Normal Normal mg/dL Mean Platelet Volume 8.8 6.9-10.8 fL Neutrophils # (Auto) 10.1 H 1.6-8.6 10 ^3/uL Lymphocytes # (Auto) 1.5 0.4-5.4 10 ^3/uL Monocytes # (Auto) 1.0 0-1.3 10 ^3/uL Eosinophils # (Auto) 0.2 0-0.8 10 ^3/uL Basophils # (Auto) 0 0-0.2 10 ^3/uL Sodium Level 138 136-145 mmol/L Potassium Level 3.8 3.5-5.1 mmol/L Chloride Level 103 98-107 mmol/L Carbon Dioxide Level 24 20-31 mmol/L Anion Gap 11 5-15 Blood Urea Nitrogen 26 H 9-23 mg/dL Creatinine 3.14 H 0.700-1.30 mg/dL Glomerular Filtration Rate Calc 24 >90 mL/min BUN/Creatinine Ratio 8.3 L 10.0-20.0 Serum Glucose 100 74-106 mg/dL Calcium Level 8.5 L 8.7-10.4 mg/dL Total Bilirubin 0.5 0.2-1.0 mg/dL Aspartate Amino Transferase (AST) 15 13-40 U/L Alanine Aminotransferase (ALT) 11 7-40 U/L Alkaline Phosphatase 54 46-116 U/L Total Protein 7.2 5.7-8.2 g/dL Albumin 3.6 3.2-4.8 g/dL Prothrombin Time 11.5 9.3-11.8 sec Prothrombin Time INR 1.09 0.9-1.15 Activated Partial Thromboplast Time 31.9 24.5-34.5 SEC Magnesium Level 1.8 1.6-2.6 mg/dL B-Type Natriuretic Peptide 11.38 0-100 pg/mL Lipase 27 12-53 U/L Assessment/Plan Problem List: (1) Morbid obesity (2) Gross hematuria (3) History of HIV infection (4) CKD (chronic kidney disease) stage 4, GFR 15-29 ml/min (5) Venous stasis dermatitis of both lower extremities (6) Leukocytosis Plan no acute urologic intervention indicated normal renal US pts weight exceeds the limit for on site CT scanner. He is pain free, no history of issues. outpt urology f/u at [facility] to accommodate pts weight for further hematuria workup. Plan discussed with: Patient, Other CHARLEE SIMMS NP Jan 07, 2025 18:31
[2025-01-07] MEDS: ATORVASTATIN 20 MG TAB PO SCH (22:01)
[2025-01-07] MEDS: ACETAMINOPHEN 325 MG TAB PO PRN (23:08)
[2025-01-08] VITALS (9 sets, daily range): BP systolic 114–150; BP diastolic 68–96; PULSE 63–96; RESP 16–20; TEMP 97–97.5; O2SAT 93–99
[2025-01-08 06:29] LABS: Hematocrit 32.1 % (41.0-53.0); Hemoglobin 10.2 g/dL (13.5-17.5); Mean Corpuscular Hemoglobin 26.1 pg (28.0-32.0); Mean Corpuscular Volume 82.1 fL (80.0-100.0); Nucleated Red Blood Cells % 0.1 %
[2025-01-08 06:49] LABS: Alanine Aminotransferase 12 U/L (7-40); Albumin 3.7 g/dL (3.2-4.8); Alkaline Phosphatase 70 U/L (46-116); Anion Gap 11 (5-15); BUN/Creatinine Ratio 9.3 (10.0-20.0); Bilirubin, Total 0.4 mg/dL (0.2-1.0); Carbon Dioxide 27 mmol/L (20-31); Chloride 100 mmol/L (98-107); Glucose 78 mg/dL (74-106); Magnesium 1.8 mg/dL (1.6-2.6); Potassium 3.9 mmol/L (3.5-5.1); Sodium 138 mmol/L (136-145); Total Protein 7.5 g/dL (5.7-8.2)
[2025-01-08 06:54] LABS: Blood Urea Nitrogen 33 mg/dL (9-23); Calcium 8.6 mg/dL (8.7-10.4)
[2025-01-08] MEDS ORDERED: ENOXAPARIN SOD 100 MG/1 ML SYRINGE SC SCH (10:00)
[2025-01-08] MEDS: BUMETANIDE 1mg/4ml VIAL (0.25mg/ml) IV SCH (10:03)
[2025-01-08] MEDS: SPIRONOLACTONE 25 MG TAB PO SCH (10:03)
[2025-01-08] MEDS: ASPirin-EC 81 mg tab PO SCH (10:04)
[2025-01-08] MEDS ORDERED: OXYCODONE W/ ACETAMINOPHEN 5/325MG TABLET PO PRN (10:30)
[2025-01-08 12:19] LABS: Urine Budding Yeast OCCASIONAL /hpf (None Seen); Urine Protein, UAD 1+ (Negative)
[2025-01-08 12:30] LABS: Protein, Urine 127.2 mg/dL (1-14)
--- NOTE | 2025-01-08 12:44 | DVHPN2 ---
Assessment/Plan Assessment/Plan progress note 44 M with HIV, morbid obesity, chronic venous stasis, DVT on pradaxa, severe RV failure admitted for gross hmaturia. pt was compliant on meds. had prior w/u for bariatric surgery but not completed yet seen today, leg pain. cleared by uro, req outpatient follow up. pending nephro consult. cr stable at 3 although 2 weeks ago was normal. does not seem to be obstructive. will get urine studies agian. physical exam aox4 on 2lNC morbidly obese unable to auscultate abdomen soft b/l chronic venous stasis, L LE more erythematous L toe amputation labs ekg imaging reviewed assessment and plan gross hematuria GONZÁLEZ ATN severe RV failure HFpEF HIV acute on chronic diastolic HF morbid obesity IVONNE HLD preDM chronic pain chronic venous stasis DVT LLE on pradaxa celulitis? 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 on asa ceftriaxone bipap at night bumex, aldactone resume home meds resume pradaxa, dovato CD4 VL pain management o2 maintain spo2 >92 trend cr after diuresis blood culture strict io urine studies, renal US diet cardiac dvt ppx on pradaxa prognosis poor full code Plan discussed with: Patient My Orders Orders - ANNA MATTHEWS MD Procedure Category Date Status Time Hydralazine Hcl PHA 01/07/25 In Process Tablet (Apresoline 22:00 Bumetanide Injection PHA 01/08/25 In Process (Bumex Injection) 10:00 Spironolactone PHA 01/08/25 In Process (Aldactone) 10:00 Strict I & O ROMI 01/07/25 In Process 14:01 * Wound Consult CONS 01/07/25 Transmitted Hiv 1 Quant Pcr LAB 01/07/25 In Process Nongraphical 14:05 Cd4/Cd8 Ratio Profile LAB 01/07/25 In Process 14:05 Kidney US 01/07/25 Resulted 14:07 Aspirin Enteric PHA 01/08/25 In Process Coated Tablet 10:00 Enoxaparin Sodium PHA 01/08/25 In Process (Lovenox) 10:00 Communication Order ORDERS 01/07/25 Transmitted 14:11 Dietary NOTICE 01/08/25 Transmitted Recommendations 10:10 * Wound Consult CONS 01/08/25 Transmitted Oxycodone W/ Acet PHA 01/08/25 Logged 5/325mg Tab (Percocet 12:45 Communication Order ORDERS 01/08/25 Transmitted 12:36 Date of Service: Jan 08, 2025 Billing Provider: ANNA MATTHEWS MD Common Visit Codes: [id number] INP/OBS CARE(HIGH) ANNA MATTHEWS MD Jan 08, 2025 12:44
[2025-01-08] MEDS: ENOXAPARIN SOD 150 MG/1 ML SYRINGE SC SCH (22:05)
[2025-01-08] MEDS: OXYCODONE W/ ACETAMINOPHEN 5/325MG TABLET PO PRN (23:21)
[2025-01-09] VITALS (9 sets, daily range): BP systolic 120–153; BP diastolic 73–79; PULSE 65–87; RESP 18–20; TEMP 95.5–98.3; O2SAT 90–99
[2025-01-09 04:07] LABS: Hematocrit 36.7 % (37.5-51.0); Hemoglobin 11.3 g/dL (13.0-17.7); MCH 26.6 pg (26.6-33.0); MCHC 30.8 g/dL (31.5-35.7); MCV 86 fL (79-97); RBC 4.25 x10E6/uL (4.14-5.80); RDW 15.3 % (11.6-15.4); WBC 14.9 x10E3/uL (3.4-10.8)
[2025-01-09 05:46] LABS: Hematocrit 31.1 % (41.0-53.0); Hemoglobin 10.0 g/dL (13.5-17.5); Mean Corpuscular Hemoglobin 26.3 pg (28.0-32.0); Mean Corpuscular Volume 81.5 fL (80.0-100.0); Nucleated Red Blood Cells % 0.0 %
[2025-01-09 06:00] LABS: Anion Gap 5 (5-15); Calcium 9.0 mg/dL (8.7-10.4); Carbon Dioxide 29 mmol/L (20-31); Chloride 102 mmol/L (98-107); Potassium 4.0 mmol/L (3.5-5.1); Sodium 136 mmol/L (136-145)
[2025-01-09 06:05] LABS: BUN/Creatinine Ratio 10.4 (10.0-20.0); Glucose 92 mg/dL (74-106)
[2025-01-09 06:06] LABS: Blood Urea Nitrogen 38 mg/dL (9-23)
[2025-01-09 11:07] LABS: CD4/CD8 Ratio 0.35 (0.92-3.72)
--- NOTE | 2025-01-09 11:07 | DVHPN2 ---
Assessment/Plan Assessment/Plan progress note 44 M with HIV, morbid obesity, chronic venous stasis, DVT on pradaxa, severe RV failure admitted for gross hmaturia. pt was compliant on meds. 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 for bx. hold lovenox if going tomorrow physical exam aox4 on 2lNC morbidly obese unable to auscultate abdomen soft b/l chronic venous stasis, L LE more erythematous L toe amputation labs ekg imaging reviewed assessment and plan gross hematuria GONZÁLEZ ATN severe RV failure HFpEF HIV acute on chronic diastolic HF morbid obesity IVONNE HLD preDM chronic pain chronic venous stasis DVT LLE on pradaxa celulitis? 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 on asa iga nephropathy? ceftriaxone bipap at night bumex, aldactone resume home meds resume pradaxa, dovato CD4 VL pain management o2 maintain spo2 >92 trend cr after diuresis blood culture strict io urine studies, renal US diet cardiac dvt ppx on pradaxa prognosis poor full code Plan discussed with: Patient My Orders Orders - ANNA MATTHEWS MD Procedure Category Date Status Time * Wound Consult CONS 01/08/25 Transmitted Oxycodone W/ Acet PHA 01/08/25 In Process 5/325mg Tab (Percocet 12:45 Communication Order ORDERS 01/08/25 Transmitted 12:36 Enoxaparin Sodium PHA 01/08/25 In Process (Lovenox) 22:00 Cleanse Wound With ROMI 01/08/25 In Process Wound Clean 15:00 * Dietary Consult CONS 01/08/25 Transmitted 17:46 Wound Culture W/ Gs MIHIR 01/08/25 In Process 18:23 Wound Culture W/ Gs MIHIR 01/08/25 In Process 18:23 *Dr. [facility] CONS 01/09/25 Transmitted -[place] 09:08 Date of Service: Jan 09, 2025 Billing Provider: ANNA MATTHEWS MD Common Visit Codes: [id number] INP/OBS CARE(HIGH) ANNA MATTHEWS MD Jan 09, 2025 11:07
--- NOTE | 2025-01-09 11:13 | DVHCONRES ---
Date Seen: Jan 09, 2025 Resident Creating Document: SHAKIRA ALMANZAR RESDIENT History of Present Illness This is a 44-year-old morbidly obese gentleman with past medical history of HIV, chronic venous stasis, DVT, hypertension, dyslipidemia, DVT, RV failure (cor pulmonale), obstructive sleep apnea, came to the hospital due to blood in urine and bilateral lower limb swelling. Family History: Cardiovascular disease G8 MOTHER G8 FATHER Diabetes mellitus G8 MOTHER Allergies: Coded Allergies: Codeine (Verified Allergy, Unknown, 06/30/21) Penicillins (Verified Allergy, Unknown, 06/30/21) Sulfa Antibiotics (Verified Allergy, Unknown, 06/30/21) Home Meds Active Scripts Sulfamethoxazole W/Trimethopri (Bactrim Ds Tablet) 1 Tab Tb, 1 TAB PO BID for 7 Days, #14 TAB Prov:SOPHIE MARTIN MILKING SYSTEM INSTALLER 12/21/24 Reported Medications Bumetanide (Bumetanide) 2 Mg Tab, 1 TAB PO DAILY for 90 Days, #90 12/19/24 Losartan Potassium (Losartan Potassium) 100 Mg Tab, 1 TAB PO DAILY for 90 Days, #90 12/19/24 Tamsulosin Hcl (Tamsulosin Hcl) 0.4 Mg Cap, 1 TAB PO DAILY for 90 Days, #90 12/19/24 Potassium Chloride (Potassium Chloride ER) 20 Meq Tab, 1 TAB PO BID for 30 Days, #60 12/19/24 Spironolactone (Spironolactone) 25 Mg Tab, 1 TAB PO DAILY for 30 Days, #30 12/19/24 Hydralazine HCl (Hydralazine HCl) 25 Mg Tab, 1 TAB PO TID for 30 Days, #90 12/19/24 Metoprolol Tartrate (Lopressor) 25 Mg Tb, 1 TAB PO BID for 30 Days, #60 12/19/24 Dolutegravir Sodium-Lamivudine (Dovato 50-300 mg) 1 Tab Tab, 1 TAB PO DAILY for 30 Days, #30 12/19/24 Rosuvastatin Calcium (Rosuvastatin Calcium) 40 Mg Tab, 1 TAB PO DAILY for 90 Days, #90 12/19/24 Current Medications Current Medications Medications (Trade) Dose Ordered Sig/Cookie Route PRN Reason Start Time Stop Time Status Last Admin Oxycodone/ Acetaminophen (Percocet 5/ 325MG Tablet) 1 tab Q6HP PRN PO SEVERE PAIN (7-10 PAIN SCALE) 01/08/25 12:45 01/08/25 23:21 Enoxaparin Sodium (Lovenox) 150 mg Q12HR SC 01/08/25 22:00 01/09/25 10:22 Review of Systems Patient seen and examined at the bedside. Patient is feeling better since admission. Vital Signs Vital Signs Date Time Temp Pulse Resp B/P (MAP) Pulse Ox O2 Delivery O2 Flow Rate FiO2 01/09/25 10:22 67 123/75 01/09/25 09:04 97.2 18 98 97.2 01/08/25 20:00 Nasal Cannula* 2 28 Physical Exam General Appearance: Alert, Oriented X3, Cooperative, lying on the bed, morbid obesity HEENT: Atraumatic, PERRLA, EOMI, Mucous membrane moist/pink Respiratory: Bilaterally decreased breath sounds Cardiovascular: Regular rate, Normal S1, Normal S2, No murmurs, no chest wall tenderness Abdominal: Normal bowel sounds, Soft, No tenderness, No hepatospenomegaly, No masses Extremities: No clubbing, No cyanosis, No edema, Normal pulses, No tenderness/swelling Skin: Bilateral grade 3-4 pedal edema with chronic skin changes possibly due to stasis dermatitis, amputated left foot fingers Neuro: Normal gait, Normal speech, Strength at 5/5 X4 ext, Normal tone, Sensation intact, Cranial nerves 3-12 NL, Reflexes 2+ Psych/Mental Status: Mental status NL, Mood NL Labs/Diagnostic Data Labs Test 01/09/25 04:53 01/08/25 11:30 01/08/25 04:51 01/07/25 14:44 Range/Units White Blood Count 14.9 H 4.4-10.8 10^3/uL Red Blood Count 3.82 L 4.5-5.90 10^6/uL Hemoglobin 10.0 L 13.5-17.5 g/dL Hematocrit 31.1 L 41.0-53.0 % Mean Corpuscular Volume 81.5 80.0-100.0 fL Mean Corpuscular Hemoglobin 26.3 L 28.0-32.0 pg Mean Corpuscular Hemoglobin Concent 32.2 32.0-36.0 g/dL Red Cell Distribution Width 17.5 H 11.8-14.3 % Platelet Count 282 140-450 10^3/uL Mean Platelet Volume 8.6 6.9-10.8 fL Neutrophils (%) (Auto) 75.3 37.0-80.0 % Lymphocytes (%) (Auto) 12.9 10.0-50.0 % Monocytes (%) (Auto) 8.9 0.0-12.0 % Eosinophils (%) (Auto) 2.7 0.0-7.0 % Basophils (%) (Auto) 0.2 0.0-2.0 % Neutrophils # (Auto) 11.2 H 1.6-8.6 10 ^3/uL Lymphocytes # (Auto) 1.9 0.4-5.4 10 ^3/uL Monocytes # (Auto) 1.3 0-1.3 10 ^3/uL Eosinophils # (Auto) 0.4 0-0.8 10 ^3/uL Basophils # (Auto) 0 0-0.2 10 ^3/uL Nucleated Red Blood Cells 0.0 % Sodium Level 136 136-145 mmol/L Potassium Level 4.0 3.5-5.1 mmol/L Chloride Level 102 98-107 mmol/L Carbon Dioxide Level 29 20-31 mmol/L Anion Gap 5 5-15 Blood Urea Nitrogen 38 H 9-23 mg/dL Creatinine 3.67 H 0.700-1.30 mg/dL Glomerular Filtration Rate Calc 20 >90 mL/min BUN/Creatinine Ratio 10.4 10.0-20.0 Serum Glucose 92 74-106 mg/dL Calcium Level 9.0 8.7-10.4 mg/dL Urine Color Yellow Yellow Urine Clarity Turbid H Clear Urine pH 5.5 5.0-9.0 Urine Specific [place] 1.015 1.001-1.035 Urine Protein 1+ H Negative Urine Ketones Negative Negative Urine Blood 3+ H Negative /uL Urine Nitrite Negative Negative Urine Bilirubin Negative Negative Urine Urobilinogen Normal Negative mg/dL Urine Leukocyte Esterase Negative Negative /uL Urine RBC 56 0 - 3 /hpf Urine Microscopic WBC 10 H 0-3 /HPF Urine Squamous Epithelial Cells Few <5 /hpf Urine Bacteria Few H None Seen /hpf Urine Yeast (Budding) Occasional None Seen /hpf Urine Creatinine 120.02 30.0-125.0 mg/dL Urine Protein/Creatinine Ratio 1.06 Urine Sodium 49 40-220 mmol/L Urine Potassium 40 12-62 mmol/L Urine Glucose Normal Normal mg/dL Urine Total Protein 127.2 H 1-14 mg/dL Phosphorus Level 3.6 2.4-5.1 mg/dL Magnesium Level 1.8 1.6-2.6 mg/dL Total Bilirubin 0.4 0.2-1.0 mg/dL Aspartate Amino Transferase (AST) 22 13-40 U/L Alanine Aminotransferase (ALT) 12 7-40 U/L Alkaline Phosphatase 70 46-116 U/L Total Protein 7.5 5.7-8.2 g/dL Albumin 3.7 3.2-4.8 g/dL Absolute Neutrophils (auto) 11.6 H 1.4-7.0 x10E3/uL Absolute Lymphocytes (auto) 1.5 0.7-3.1 x10E3/uL Absolute Monocytes (auto) 1.4 H 0.1-0.9 x10E3/uL Absolute Eosinophils (auto) 0.3 0.0-0.4 x10E3/uL Absolute Basophils (auto) 0.0 0.0-0.2 x10E3/uL Immature Granulocytes % 0 Not Estab. % Immature Granulocytes # 0 0.0-0.1 x10E3/uL Immature Blood Cells . Hematology Comments . Test 01/06/25 18:16 Range/Units Prothrombin Time 11.5 9.3-11.8 sec Prothrombin Time INR 1.09 0.9-1.15 Activated Partial Thromboplast Time 31.9 24.5-34.5 SEC B-Type Natriuretic Peptide 11.38 0-100 pg/mL Lipase 27 12-53 U/L Microbiology Date/Time Source Procedure Growth Status 01/08/25 14:45 Leg Left Gram Stain - Final Resulted 01/08/25 14:45 Leg Left Wound Culture - Preliminary Resulted Assessment This is a 44-year-old morbidly obese gentleman with past medical history of HIV, chronic venous stasis, DVT, hypertension, dyslipidemia, DVT, RV failure (cor pulmonale), obstructive sleep apnea, came to the hospital due to blood in urine and bilateral lower limb swelling. 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 Cameron) * Glomerulonephritis workup; GORDON, C3/C4, Anca, anti streptolycin 0, Ig A, hepatitis-B and hepatitis-C panel, urine study, and renal biopsy * Consulted IR for renal biopsy, hold on anticoagulant/Lovenox * Bumex 2 mg daily * Strict I&Os * Renal diet * We will follow up with the patient Thank you for giving us the opportunity to take area of the patient. Please call back if you have any questions/concerns. Patient seen and examined by myself with the medicine resident on rounds, I agr with his assessment and plan Plan discussed with: Patient, Other (RN) SHAKIRA ALMANZAR Jan 09, 2025 11:13 АННА CAMERON MD Jan 09, 2025 11:17
[2025-01-09 16:16] LABS: Hepatitis B Surface Antigen Negative (Negative); Hepatitis C Antibody Negative (Negative)
[2025-01-09] MEDS: DAPTOmycin 500 MG in SODIUM CHL 0.9% 50 ML IV SCH (21:56)
[2025-01-10] VITALS (8 sets, daily range): BP systolic 123–161; BP diastolic 72–102; PULSE 64–82; RESP 18–19; TEMP 97.1–97.8; O2SAT 96–100
[2025-01-10 05:16] LABS: Hemoglobin 11.0 g/dL (13.5-17.5)
[2025-01-10 05:19] LABS: Hematocrit 34.7 % (41.0-53.0); Mean Corpuscular Hemoglobin 25.9 pg (28.0-32.0); Mean Corpuscular Volume 81.8 fL (80.0-100.0); Nucleated Red Blood Cells % 0.0 %
[2025-01-10 05:27] LABS: Alanine Aminotransferase 20 U/L (7-40); Albumin 3.9 g/dL (3.2-4.8); Alkaline Phosphatase 78 U/L (46-116); Anion Gap 9 (5-15); BUN/Creatinine Ratio 10.0 (10.0-20.0); Calcium 8.9 mg/dL (8.7-10.4); Carbon Dioxide 29 mmol/L (20-31); Chloride 101 mmol/L (98-107); Glucose 104 mg/dL (74-106); Potassium 3.9 mmol/L (3.5-5.1); Sodium 139 mmol/L (136-145); Total Protein 8.0 g/dL (5.7-8.2)
[2025-01-10 05:28] LABS: Bilirubin, Total 0.3 mg/dL (0.2-1.0); Blood Urea Nitrogen 36 mg/dL (9-23); Creatine Kinase IFCC 1022 U/L (46-171)
[2025-01-10] MEDS: BUMETANIDE 1mg/4ml VIAL (0.25mg/ml) IV SCH (13:45)
[2025-01-10 14:07] LABS: Anti-Centromere B Antibody <0.2 AI (0.0-0.9); Anti-Jo-1 Antibody <0.2 AI (0.0-0.9); Anti-dsDNA Antibody 3 IU/mL (0-9); Antichromatin Antibody <0.2 AI (0.0-0.9); Antiscleroderma-70 Antibody <0.2 AI (0.0-0.9); Sjogren's Anti-SS-A Antibody <0.2 AI (0.0-0.9); Sjogren's Anti-SS-B Antibody <0.2 AI (0.0-0.9)
[2025-01-11] VITALS (9 sets, daily range): BP systolic 115–160; BP diastolic 62–87; PULSE 66–81; RESP 17–19; TEMP 96.6–97.6; O2SAT 95–99
--- NOTE | 2025-01-11 11:08 | DVHPN2 ---
Assessment/Plan Assessment/Plan progress note 44 M with HIV, morbid obesity, chronic venous stasis, DVT on pradaxa, severe RV failure admitted for gross hmaturia. pt was compliant on meds. had prior w/u for bariatric surgery but not completed yet seen today, not able to get biopsy, wound cutlure with gram positive, widened coverage with dapto. not able to get imaging, will do surg consult. physical exam aox4 on 2lNC morbidly obese unable to auscultate abdomen soft b/l chronic venous stasis, L LE more erythematous L toe amputation labs ekg imaging reviewed assessment and plan gross hematuria GONZÁLEZ ATN severe RV failure HFpEF HIV acute on chronic diastolic HF morbid obesity IVONNE HLD preDM chronic pain chronic venous stasis DVT LLE on pradaxa celulitis? 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 on asa iga nephropathy? dapto and ceft bipap at night bumex, aldactone resume home meds resume dovato pradaxa to lovenox CD4 VL pain management o2 maintain spo2 >92 trend cr after diuresis blood culture strict io urine studies, renal US diet cardiac dvt ppx on lovenox prognosis poor full code Plan discussed with: Patient My Orders Orders - ANNA MATTHEWS MD Procedure Category Date Status Time Communication Order ORDERS 01/09/25 Transmitted 18:39 Daptomycin (Cubicin) PHA 01/09/25 In Process 21:00 Date of Service: Jan 10, 2025 Billing Provider: ANNA MATTHEWS MD Common Visit Codes: [id number] INP/OBS CARE(HIGH) ANNA MATTHEWS MD Jan 10, 2025 11:33
--- NOTE | 2025-01-11 11:14 | DVHPN2 ---
Progress Note Date Seen: Jan 10, 2025 Medical Necessity Reason Pt with a Central, PICC or Fol: No Subjective Patient reports: No new complaints Other Systems: Patient seen and examined by myself today in follow-up Objective vital signs Vital Sign Date Time Temp Pulse Resp B/P (MAP) Pulse Ox O2 Delivery O2 Flow Rate FiO2 01/10/25 13:15 97.1 64 18 123/80 (94) 97 97.1 01/10/25 10:30 Nasal Cannula 2.0 01/10/25 10:30 28 Total Intake and Output 01/09/25 01/09/25 01/10/25 15:00 23:00 07:00 Intake Total 950 ml 1200 ml Output Total 800 ml 800 ml Balance 150 ml 400 ml medications Current Medications Medications Dose Ordered Sig/Cookie Route Start Time Stop Time Status Last Admin Dose Admin Atorvastatin Calcium 20 mg HS PO 01/07/25 22:00 01/09/25 21:57 20 MG Metoprolol Tartrate 50 mg BID PO 01/07/25 10:00 01/10/25 09:41 50 MG Levofloxacin/ Dextrose 100 ml @ 100 mls/hr Q48H IV 01/06/25 23:00 01/08/25 22:03 100 MLS/HR Patient Own Medication 50 mg DAILY PO 01/07/25 10:00 01/10/25 09:42 50 MG Sodium Chloride 10 ml Q8HR IV 01/07/25 06:00 01/10/25 05:51 10 ML Acetaminophen 650 mg Q6HP PRN PO 01/06/25 22:15 01/07/25 23:08 650 MG Hydralazine HCl 10 mg Q8HR PO 01/07/25 22:00 01/10/25 05:50 10 MG Bumetanide 1 mg DAILY IV 01/08/25 10:00 01/10/25 09:40 1 MG Aspirin 81 mg DAILY PO 01/08/25 10:00 01/09/25 10:22 81 MG Oxycodone/ Acetaminophen 1 tab Q6HP PRN PO 01/08/25 12:45 01/10/25 06:27 1 TAB Enoxaparin Sodium 150 mg Q12HR SC 01/08/25 22:00 01/09/25 10:22 150 MG Daptomycin 500 mg/ Sodium Chloride 50 ml @ 100 mls/hr DAILY IV 01/09/25 21:00 01/10/25 09:47 100 MLS/HR Examination: LUNGS:Normal, CVS:Normal, MSK:Abnormal laboratory and microbiology Laboratory Tests 01/10/25 01:43 Test 01/10/25 01:43 Range/Units Serum Glucose 104 74-106 mg/dL Microbiology Date/Time Source Procedure Growth Status 01/08/25 14:45 Leg Right Gram Stain - Final Resulted 01/08/25 14:45 Leg Right Wound Culture - Preliminary Resulted Problem List/Assessment/Plan Problem List/Assessment/Plan GONZÁLEZ, on CKD , 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 Yip from Radiology he declined kidney biopsy due to high risk of bleeding& morbidity Blood pressure control We will continue to follow Plan discussed with: Patient Dietary Evaluation Review Comments: Nutrition Recommendation: 1) Consider NCS + cardiac diet 2) Bryce 1 pk BID 3) Refer Cooperative Education Coordinator for diabetes education (Pre-DM) 4) Monitor PO intake, lab values, weight trend, and I/O Expected Outcomes/Goals: Wound to improve Fu 3-5 days АННА CAMERON MD Jan 10, 2025 13:37
--- NOTE | 2025-01-11 11:19 | DVHINCON2 ---
Consultation - Surgical Date Seen: Jan 10, 2025 Referring Physician Reason for Consultation Bilateral lower extremity cellulitis with open wounds History of Present Illness History of Present Illness Mr. Pretty is a 44-year-old male who presented to the ED several days ago with complaints of left lower extremity swelling and hematuria. Currently being worked up for IgA nephropathy. I got consulted for assessment of his bilateral lower extremities. Patient states that he has been dealing with this swelling in his legs for the last 2-3 years, he occasionally develops open wounds, they heal but then they reopened again. Patient is currently on home health for his bilateral lower extremity wounds. He denies any purulence from the wounds. Expressly asked about being managed with Unna boot in the past, and he stated that he is allergic to the ointment on it. Past Medical/Surgical History Past Medical/Surgical History Past medical history Morbid obesity, CHF, High Lipids, HTN, DVT, HIV, chronic lower extremity edema, recurrent lower extremity venous stasis ulcers : Past surgical history: Left transmetatarsal amputation Family and Social History Family and Social History Family history noncontributory Denies the use of alcohol/tobacco or drugs Allergies and medications Allergies: Coded Allergies: Codeine (Verified Allergy, Unknown, 06/30/21) Penicillins (Verified Allergy, Unknown, 06/30/21) Sulfa Antibiotics (Verified Allergy, Unknown, 06/30/21) Home Meds Active Scripts Sulfamethoxazole W/Trimethopri (Bactrim Ds Tablet) 1 Tab Tb, 1 TAB PO BID for 7 Days, #14 TAB Prov:SOPHIE MARTIN VETERINARY SCIENCE TEACHER 12/21/24 Reported Medications Bumetanide (Bumetanide) 2 Mg Tab, 1 TAB PO DAILY for 90 Days, #90 12/19/24 Losartan Potassium (Losartan Potassium) 100 Mg Tab, 1 TAB PO DAILY for 90 Days, #90 12/19/24 Tamsulosin Hcl (Tamsulosin Hcl) 0.4 Mg Cap, 1 TAB PO DAILY for 90 Days, #90 12/19/24 Potassium Chloride (Potassium Chloride ER) 20 Meq Tab, 1 TAB PO BID for 30 Days, #60 12/19/24 Spironolactone (Spironolactone) 25 Mg Tab, 1 TAB PO DAILY for 30 Days, #30 12/19/24 Hydralazine HCl (Hydralazine HCl) 25 Mg Tab, 1 TAB PO TID for 30 Days, #90 12/19/24 Metoprolol Tartrate (Lopressor) 25 Mg Tb, 1 TAB PO BID for 30 Days, #60 12/19/24 Dolutegravir Sodium-Lamivudine (Dovato 50-300 mg) 1 Tab Tab, 1 TAB PO DAILY for 30 Days, #30 12/19/24 Rosuvastatin Calcium (Rosuvastatin Calcium) 40 Mg Tab, 1 TAB PO DAILY for 90 Days, #90 12/19/24 Review of systems Review of Systems: Deferred Examination Vital signs Vital Signs Date Time Temp Pulse Resp B/P (MAP) Pulse Ox O2 Delivery O2 Flow Rate FiO2 01/10/25 13:40 123/80 01/10/25 13:15 97.1 64 18 97 97.1 01/10/25 10:30 Nasal Cannula 2.0 01/10/25 10:30 28 Medications Current Medications Medications (Trade) Dose Ordered Sig/Cookie Route PRN Reason Start Time Stop Time Status Last Admin Daptomycin 500 mg/ Sodium Chloride 50 ml @ 100 mls/hr DAILY IV 01/09/25 21:00 01/10/25 09:47 Bumetanide (Bumex Injection) 1 mg BID IV 01/10/25 13:45 Laboratory Labs Test 01/10/25 01:43 01/09/25 21:18 01/09/25 13:25 01/09/25 04:53 Range/Units White Blood Count 11.5 H 4.4-10.8 10^3/uL Red Blood Count 4.24 L 4.5-5.90 10^6/uL Hemoglobin 11.0 L 13.5-17.5 g/dL Hematocrit 34.7 #L 41.0-53.0 % Mean Corpuscular Volume 81.8 80.0-100.0 fL Mean Corpuscular Hemoglobin 25.9 L 28.0-32.0 pg Mean Corpuscular Hemoglobin Concent 31.6 L 32.0-36.0 g/dL Red Cell Distribution Width 18.1 H 11.8-14.3 % Platelet Count 359 140-450 10^3/uL Mean Platelet Volume 8.7 6.9-10.8 fL Neutrophils (%) (Auto) 72.0 37.0-80.0 % Lymphocytes (%) (Auto) 15.6 10.0-50.0 % Monocytes (%) (Auto) 9.0 0.0-12.0 % Eosinophils (%) (Auto) 3.0 0.0-7.0 % Basophils (%) (Auto) 0.4 0.0-2.0 % Neutrophils # (Auto) 8.3 1.6-8.6 10 ^3/uL Lymphocytes # (Auto) 1.8 0.4-5.4 10 ^3/uL Monocytes # (Auto) 1.0 0-1.3 10 ^3/uL Eosinophils # (Auto) 0.3 0-0.8 10 ^3/uL Basophils # (Auto) 0 0-0.2 10 ^3/uL Nucleated Red Blood Cells 0.0 % Sodium Level 139 136-145 mmol/L Potassium Level 3.9 3.5-5.1 mmol/L Chloride Level 101 98-107 mmol/L Carbon Dioxide Level 29 20-31 mmol/L Anion Gap 9 5-15 Blood Urea Nitrogen 36 H 9-23 mg/dL Creatinine 3.59 H 0.700-1.30 mg/dL Glomerular Filtration Rate Calc 21 >90 mL/min BUN/Creatinine Ratio 10.0 10.0-20.0 Serum Glucose 104 74-106 mg/dL Calcium Level 8.9 8.7-10.4 mg/dL Total Bilirubin 0.3 0.2-1.0 mg/dL Aspartate Amino Transferase (AST) 43 H 13-40 U/L Alanine Aminotransferase (ALT) 20 7-40 U/L Alkaline Phosphatase 78 46-116 U/L Creatine Kinase 1022 H 46-171 U/L Total Protein 8.0 5.7-8.2 g/dL Albumin 3.9 3.2-4.8 g/dL POC Glucose 118 H 70-106 mg/dl Anti-Nuclear Antibody Comment Comment . SIENA-1 Antibody <0.2 0.0-0.9 AI SS-A/Ro Antibody <0.2 0.0-0.9 AI SS-B/La Antibody <0.2 0.0-0.9 AI Sm Antibody <0.2 0.0-0.9 AI DIGITAL MEDIA SPECIALIST Antibody 0.6 0.0-0.9 AI Scl-70 (Scleroderma) Antibody <0.2 0.0-0.9 AI Anti-Double Strand DNA Antibody 3 0-9 IU/mL Chromatin Antibody <0.2 0.0-0.9 AI Centromere B Antibody <0.2 0.0-0.9 AI Complement C3 261 H 82-167 mg/dL Complement C4 32 12-38 mg/dL Hepatitis A IgM Antibody Negative Hepatitis B Surface Antigen Negative Negative Hepatitis B Core IgM Antibody Negative Negative Hepatitis C Antibody Negative Negative Parathyroid Hormone (Intact) 118.5 H 18.4-80.1 pg/mL Test 01/08/25 11:30 01/08/25 04:51 01/07/25 14:44 01/06/25 18:16 Range/Units Urine Color Yellow Yellow Urine Clarity Turbid H Clear Urine pH 5.5 5.0-9.0 Urine Specific [place] 1.015 1.001-1.035 Urine Protein 1+ H Negative Urine Ketones Negative Negative Urine Blood 3+ H Negative /uL Urine Nitrite Negative Negative Urine Bilirubin Negative Negative Urine Urobilinogen Normal Negative mg/dL Urine Leukocyte Esterase Negative Negative /uL Urine RBC 56 0 - 3 /hpf Urine Microscopic WBC 10 H 0-3 /HPF Urine Squamous Epithelial Cells Few <5 /hpf Urine Bacteria Few H None Seen /hpf Urine Yeast (Budding) Occasional None Seen /hpf Urine Creatinine 120.02 30.0-125.0 mg/dL Urine Protein/Creatinine Ratio 1.06 Urine Sodium 49 40-220 mmol/L Urine Potassium 40 12-62 mmol/L Urine Glucose Normal Normal mg/dL Urine Total Protein 127.2 H 1-14 mg/dL Phosphorus Level 3.6 2.4-5.1 mg/dL Magnesium Level 1.8 1.6-2.6 mg/dL Absolute Neutrophils (auto) 11.6 H 1.4-7.0 x10E3/uL Absolute Lymphocytes (auto) 1.5 0.7-3.1 x10E3/uL Absolute Monocytes (auto) 1.4 H 0.1-0.9 x10E3/uL Absolute Eosinophils (auto) 0.3 0.0-0.4 x10E3/uL Absolute Basophils (auto) 0.0 0.0-0.2 x10E3/uL Immature Granulocytes % 0 Not Estab. % Immature Granulocytes # 0 0.0-0.1 x10E3/uL Immature Blood Cells . Hematology Comments . Percent CD4 Cells 16.5 L 30.8-58.5 % Absolute CD4 Count 248 L 359-1519 /uL T-Lymphocyte CD4/CD8 Ratio 0.35 L 0.92-3.72 Percent CD8 Cells 47.7 H 12.0-35.5 % Absolute CD8 Count 716 109-897 /uL Prothrombin Time 11.5 9.3-11.8 sec Prothrombin Time INR 1.09 0.9-1.15 Activated Partial Thromboplast Time 31.9 24.5-34.5 SEC B-Type Natriuretic Peptide 11.38 0-100 pg/mL Lipase 27 12-53 U/L Microbiology Date/Time Source Procedure Growth Status 01/08/25 14:45 Leg Right Gram Stain - Final Resulted 01/08/25 14:45 Leg Right Wound Culture - Preliminary Resulted Examination: GENERAL:Abnormal (Morbidly obese), SKIN:Abnormal (Bilateral lower extremity edema from foot to lower thigh, bilateral foot and lower leg erythema (blanching), bilateral pitting edema, left lower leg has a stage II ulcer at posterior calf without pus/drainage and with clean base measuring approximately 5 x 5 by 0.5 cm. Right lower extremity has stage II ulcer at the right ankle area measuring 5 x 4 x 0.5 cm, no pus/no drainage and with a clean base.) Problem List/Assessment/Plan Problems: (1) Cellulitis of lower leg (2) Skin ulcer, stage 2 Assessment and Plan Mr. Pretty is a 44-year-old male who is currently being worked up for the possibility of IgA nephropathy. He also suffers from chronic venous stasis, lower extremity edema and recurrent ulcers. I was consulted to assess lower extremity wounds. He has a posterior left calf stage II ulcer approximately 5 x 5 x 0.5 cm with a clean base, no pus, no drainage, no necrosis. He also has a right ankle stage II ulcer approximately 5 x 4 x 0.5 cm and without pus or drainage or necrosis, with a clean base also. He also has in the left medial thigh an area with multiple fluid filled blisters, fluid is clear, and likely du e to his extensive edema. None of the wounds appeared infected, I did not see any area concerning for an abscess, all his wounds are due to severe venous stasis. Patient will continue to benefit from local care to the ulcerated areas. He will definitely benefit from Unna boot, although patient states that he has some sort of allergy to the ointment used in that type of dressing. 1. No surgical intervention required at this time 2. Continue with local care 3. Patient will definitely benefit from Unna boot dressing 4. Bilateral lower extremity elevation 5. I will sign off please call with any questions or concerns Plan discussed with Plan discussed with: Patient, Other (Sister) Visit Coding Surgery Date of Service if different f: Jan 10, 2025 Billing Provider: MONICA COLLINS MD Surgery Visit Codes: [id number] - INP CONSULT <110 MIN MONICA COLLINS MD Jan 10, 2025 16:38
--- NOTE | 2025-01-11 12:12 | DVHPN2 ---
Progress Note Date Seen: Jan 11, 2025 Resident Creating Document: SHAKIRA ALMANZAR RESDIENT Medical Necessity Reason Pt with a Central, PICC or Fol: No Subjective Review of Systems Patient seen and examined at bedside, patient is feeling better since admission Objective vital signs Vital Sign Date Time Temp Pulse Resp B/P (MAP) Pulse Ox O2 Delivery O2 Flow Rate FiO2 01/11/25 10:30 99 Nasal Cannula 2.0 01/11/25 10:30 28 01/11/25 09:22 68 130/76 01/11/25 08:33 97.0 17 97.0 Total Intake and Output 01/10/25 01/10/25 01/11/25 15:00 23:00 07:00 Intake Total 50 ml 2550 ml 900 ml Output Total 1150 ml 600 ml Balance 50 ml 1400 ml 300 ml medications Current Medications Medications Dose Ordered Sig/Cookie Route Start Time Stop Time Status Last Admin Dose Admin Atorvastatin Calcium 20 mg HS PO 01/07/25 22:00 01/10/25 22:11 20 MG Metoprolol Tartrate 50 mg BID PO 01/07/25 10:00 01/11/25 09:22 50 MG Patient Own Medication 50 mg DAILY PO 01/07/25 10:00 01/11/25 09:23 50 MG Sodium Chloride 10 ml Q8HR IV 01/07/25 06:00 01/11/25 06:08 10 ML Acetaminophen 650 mg Q6HP PRN PO 01/06/25 22:15 01/07/25 23:08 650 MG Hydralazine HCl 10 mg Q8HR PO 01/07/25 22:00 01/11/25 06:08 10 MG Aspirin 81 mg DAILY PO 01/08/25 10:00 01/11/25 09:22 81 MG Oxycodone/ Acetaminophen 1 tab Q6HP PRN PO 01/08/25 12:45 01/11/25 06:09 1 TAB Enoxaparin Sodium 150 mg Q12HR SC 01/08/25 22:00 01/11/25 09:21 150 MG Daptomycin 500 mg/ Sodium Chloride 50 ml @ 100 mls/hr DAILY IV 01/09/25 21:00 01/11/25 09:37 100 MLS/HR Bumetanide 1 mg BID IV 01/10/25 13:45 01/11/25 09:21 1 MG Levofloxacin/ Dextrose 100 ml @ 100 mls/hr DAILY@2300 IV 01/10/25 23:00 01/10/25 22:46 100 MLS/HR Examination General Appearance: Alert, Oriented X3, Cooperative, lying on the bed, morbid obesity HEENT: Atraumatic, PERRLA, EOMI, Mucous membrane moist/pink Respiratory: Bilaterally decreased breath sounds Cardiovascular: Regular rate, Normal S1, Normal S2, No murmurs, no chest wall tenderness Abdominal: Normal bowel sounds, Soft, No tenderness, No hepatospenomegaly, No masses Extremities: No clubbing, No cyanosis, No edema, Normal pulses, No tenderness/swelling Skin: Bilateral grade 3-4 pedal edema with chronic skin changes possibly due to stasis dermatitis, amputated left foot fingers Neuro: Normal gait, Normal speech, Strength at 5/5 X4 ext, Normal tone, Sensation intact, Cranial nerves 3-12 NL, Reflexes 2+ Psych/Mental Status: Mental status NL, Mood NL laboratory and microbiology Laboratory Tests 01/10/25 01:43 Test 01/10/25 01:43 Range/Units Serum Glucose 104 74-106 mg/dL Microbiology Date/Time Source Procedure Growth Status 01/08/25 14:45 Leg Right Gram Stain - Final Resulted 01/08/25 14:45 Leg Right Wound Culture - Preliminary Resulted Problem List/Assessment/Plan Problem List/Assessment/Plan This is a 44-year-old morbidly obese gentleman with past medical history of HIV, chronic venous stasis, DVT, hypertension, dyslipidemia, DVT, RV failure (cor pulmonale), obstructive sleep apnea, came to the hospital due to blood in urine and bilateral lower limb swelling. 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 Nguyen) * Kidney Function stabilized, * Consulted IR for renal biopsy, Dr. Yip from Radiology he declined kidney biopsy due to high risk of bleeding& morbidity * Bumex 1 mg b.i.d. * Strict I&Os * Renal diet * We will follow up with the patient Thank you for giving us the opportunity to take area of the patient. Please call back if you have any questions/concerns. Plan discussed with: Patient, Other (RN) Dietary Evaluation Review Comments: Nutrition Recommendation: 1) Consider NCS + cardiac diet 2) Bryce 1 pk BID 3) Refer Lithopress Operator for diabetes education (Pre-DM) 4) Monitor PO intake, lab values, weight trend, and I/O Expected Outcomes/Goals: Wound to improve Fu 3-5 days SHAKIRA ALMANZAR Jan 11, 2025 12:12
--- NOTE | 2025-01-11 14:15 | DVHPN2 ---
Progress Note Date Seen: Jan 11, 2025 Medical Necessity Reason Pt with a Central, PICC or Fol: No Subjective Patient reports: No new complaints Objective vital signs Vital Sign Date Time Temp Pulse Resp B/P (MAP) Pulse Ox O2 Delivery O2 Flow Rate FiO2 01/11/25 10:30 99 Nasal Cannula 2.0 01/11/25 10:30 28 01/11/25 09:22 68 130/76 01/11/25 08:33 97.0 17 97.0 Total Intake and Output 01/10/25 01/10/25 01/11/25 15:00 23:00 07:00 Intake Total 50 ml 2550 ml 900 ml Output Total 1150 ml 600 ml Balance 50 ml 1400 ml 300 ml medications Current Medications Medications Dose Ordered Sig/Cookie Route Start Time Stop Time Status Last Admin Dose Admin Atorvastatin Calcium 20 mg HS PO 01/07/25 22:00 01/10/25 22:11 20 MG Metoprolol Tartrate 50 mg BID PO 01/07/25 10:00 01/11/25 09:22 50 MG Patient Own Medication 50 mg DAILY PO 01/07/25 10:00 01/11/25 09:23 50 MG Sodium Chloride 10 ml Q8HR IV 01/07/25 06:00 01/11/25 06:08 10 ML Acetaminophen 650 mg Q6HP PRN PO 01/06/25 22:15 01/07/25 23:08 650 MG Hydralazine HCl 10 mg Q8HR PO 01/07/25 22:00 01/11/25 06:08 10 MG Aspirin 81 mg DAILY PO 01/08/25 10:00 01/11/25 09:22 81 MG Oxycodone/ Acetaminophen 1 tab Q6HP PRN PO 01/08/25 12:45 01/11/25 06:09 1 TAB Enoxaparin Sodium 150 mg Q12HR SC 01/08/25 22:00 01/11/25 09:21 150 MG Daptomycin 500 mg/ Sodium Chloride 50 ml @ 100 mls/hr DAILY IV 01/09/25 21:00 01/11/25 09:37 100 MLS/HR Bumetanide 1 mg BID IV 01/10/25 13:45 01/11/25 09:21 1 MG Levofloxacin/ Dextrose 100 ml @ 100 mls/hr DAILY@2300 IV 01/10/25 23:00 01/10/25 22:46 100 MLS/HR Examination Generally-45 years old male, morbidly obese, lying in bed. No apparent distress HEENT-atraumatic normocephalic Heart-regular rate and rhythm Lungs decreased breath sounds due to body habitus Abdomen soft nontender nondistended Musculoskeletal-left above-knee amputation. Right lower extremity mild pedal edema Neuro-AO x3, no focal deficits laboratory and microbiology Laboratory Tests 01/10/25 01:43 Test 01/10/25 01:43 Range/Units Serum Glucose 104 74-106 mg/dL Microbiology Date/Time Source Procedure Growth Status 01/08/25 14:45 Leg Right Gram Stain - Final Resulted 01/08/25 14:45 Leg Right Wound Culture - Preliminary Resulted Problem List/Assessment/Plan Problem List/Assessment/Plan gross hematuria GONZÁLEZ ATN severe RV failure HFpEF HIV acute on chronic diastolic HF morbid obesity IVONEN HLD preDM chronic pain chronic venous stasis DVT LLE on pradaxa celulitis? 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 on asa iga nephropathy? dapto and levaquin bipap at night bumex, aldactone resume home meds resume dovato pradaxa to lovenox CD4 200s pain management o2 maintain spo2 >92 trend cr after diuresis blood culture strict io Follow up with nephrology rec. diet cardiac dvt ppx on lovenox prognosis poor Plan discussed with: Patient Dietary Evaluation Review Comments: Nutrition Recommendation: 1) Consider NCS + cardiac diet 2) Bryce 1 pk BID 3) Refer Gin Operator for diabetes education (Pre-DM) 4) Monitor PO intake, lab values, weight trend, and I/O Expected Outcomes/Goals: Wound to improve Fu 3-5 days Date of Service: Jan 11, 2025 Billing Provider: UMESH KILPATRICK MD Common Visit Codes: [id number] SAME DATE (HIGH) UMESH KILPATRICK MD Jan 11, 2025 14:15
[2025-01-12] VITALS (8 sets, daily range): BP systolic 133–152; BP diastolic 64–100; PULSE 60–84; RESP 16–20; TEMP 97.8–98.8; O2SAT 91–98
[2025-01-12 05:16] LABS: Chloride 103 mmol/L (98-107); Potassium 4.4 mmol/L (3.5-5.1); Sodium 142 mmol/L (136-145)
[2025-01-12 05:17] LABS: Anion Gap 8 (5-15); Calcium 8.8 mg/dL (8.7-10.4)
[2025-01-12 05:22] LABS: BUN/Creatinine Ratio 11.7 (10.0-20.0); Blood Urea Nitrogen 40 mg/dL (9-23); Carbon Dioxide 31 mmol/L (20-31); Glucose 86 mg/dL (74-106)
[2025-01-12 10:21] LABS: Nucleated Red Blood Cells % 0.1 %
[2025-01-12 10:22] LABS: Hematocrit 35.2 % (41.0-53.0); Hemoglobin 11.0 g/dL (13.5-17.5); Mean Corpuscular Hemoglobin 25.8 pg (28.0-32.0); Mean Corpuscular Volume 82.4 fL (80.0-100.0)
[2025-01-12 11:29] LABS: Total Cells Counted 100.0 (100)
[2025-01-12 11:31] LABS: Anisocytosis Slight
--- NOTE | 2025-01-12 14:55 | DVHPN2 ---
Progress Note Date Seen: Jan 12, 2025 Medical Necessity Reason Pt with a Central, PICC or Fol: No Subjective Patient reports: No new complaints (Patient's renal function slowly improving. Patient is voiding, eating well. No focal deficits no chest pain and shortness of breaths no fever chills), Feels better Objective vital signs Vital Sign Date Time Temp Pulse Resp B/P (MAP) Pulse Ox O2 Delivery O2 Flow Rate FiO2 01/12/25 13:02 157/100 01/12/25 13:00 97.9 63 19 94 97.9 01/12/25 09:30 Nasal Cannula 2.0 01/12/25 09:30 28 Total Intake and Output 01/11/25 01/11/25 01/12/25 15:00 23:00 07:00 Intake Total 50 ml 2310 ml 1600 ml Output Total 1175 ml 700 ml Balance 50 ml 1135 ml 900 ml medications Current Medications Medications Dose Ordered Sig/Cookie Route Start Time Stop Time Status Last Admin Dose Admin Atorvastatin Calcium 20 mg HS PO 01/07/25 22:00 01/11/25 21:42 20 MG Metoprolol Tartrate 50 mg BID PO 01/07/25 10:00 01/12/25 08:57 50 MG Patient Own Medication 50 mg DAILY PO 01/07/25 10:00 01/12/25 08:58 50 MG Sodium Chloride 10 ml Q8HR IV 01/07/25 06:00 01/12/25 13:01 10 ML Acetaminophen 650 mg Q6HP PRN PO 01/06/25 22:15 01/07/25 23:08 650 MG Hydralazine HCl 10 mg Q8HR PO 01/07/25 22:00 01/12/25 13:02 10 MG Aspirin 81 mg DAILY PO 01/08/25 10:00 01/12/25 08:57 81 MG Oxycodone/ Acetaminophen 1 tab Q6HP PRN PO 01/08/25 12:45 01/12/25 13:58 1 TAB Enoxaparin Sodium 150 mg Q12HR SC 01/08/25 22:00 01/12/25 09:09 150 MG Daptomycin 500 mg/ Sodium Chloride 50 ml @ 100 mls/hr DAILY IV 01/09/25 21:00 01/12/25 09:09 100 MLS/HR Bumetanide 1 mg BID IV 01/10/25 13:45 01/12/25 09:09 1 MG Levofloxacin/ Dextrose 100 ml @ 100 mls/hr DAILY@2300 IV 01/10/25 23:00 01/11/25 22:39 100 MLS/HR Examination Generally-45 years old male, morbidly obese, lying in bed. No apparent distress HEENT-atraumatic normocephalic Heart-regular rate and rhythm Lungs decreased breath sounds due to body habitus Abdomen soft nontender nondistended Musculoskeletal-left above-knee amputation. Right lower extremity mild pedal edema Neuro-AO x3, no focal deficits laboratory and microbiology Laboratory Tests 01/12/25 04:39 Test 01/12/25 04:39 Range/Units Serum Glucose 86 74-106 mg/dL Microbiology Date/Time Source Procedure Growth Status 01/08/25 14:45 Leg Right Gram Stain - Final Resulted 01/08/25 14:45 Leg Right Wound Culture - Preliminary Resulted Labs and/or images reviewed: Labs reviewed by me, Image(s) reviewed by me Problem List/Assessment/Plan Problem List/Assessment/Plan gross hematuria GONZÁLEZ ATN severe RV failure HFpEF HIV acute on chronic diastolic HF morbid obesity IVONNE HLD preDM chronic pain chronic venous stasis DVT LLE on pradaxa celulitis? 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 on asa iga nephropathy? dapto and levaquin bipap at night bumex, aldactone resume home meds resume dovato pradaxa to lovenox CD4 200s pain management o2 maintain spo2 >92 Renal function slowly improving blood culture strict io Follow up with nephrology rec urinary if knee biopsy. Patient will need Nephrology outpatient diet cardiac dvt ppx on lovenox prognosis poor Plan discussed with: Patient My Orders My Orders Orders - UMESH KILPATRICK MD Procedure Category Date Status Time Complete Blood Count LAB 01/13/25 Verified 05:00 Complete Blood Count LAB 01/14/25 Verified 05:00 Complete Blood Count LAB 01/15/25 Verified 05:00 Complete Blood Count LAB 01/16/25 Verified 05:00 Complete Blood Count LAB 01/17/25 Verified 05:00 Comprehensive LAB 01/13/25 Verified Metabolic Panel 05:00 Comprehensive LAB 01/14/25 Verified Metabolic Panel 05:00 Comprehensive LAB 01/15/25 Verified Metabolic Panel 05:00 Comprehensive LAB 01/16/25 Verified Metabolic Panel 05:00 Comprehensive LAB 01/17/25 Verified Metabolic Panel 05:00 Refer To Physical ROMI 01/12/25 In Process Therapy 14:40 Dietary Evaluation Review Comments: Nutrition Recommendation: 1) Consider NCS + cardiac diet 2) Bryce 1 pk BID 3) Refer Evs Attendant for diabetes education (Pre-DM) 4) Monitor PO intake, lab values, weight trend, and I/O Expected Outcomes/Goals: Wound to improve Fu 3-5 days Date of Service: Jan 12, 2025 Billing Provider: UMESH KILPATRICK MD Common Visit Codes: [id number] SAME DATE (HIGH) UMESH KILPATRICK MD Jan 12, 2025 14:55
--- NOTE | 2025-01-12 16:00 | DVHPN2 ---
Progress Note Date Seen: Jan 12, 2025 Medical Necessity Reason Pt with a Central, PICC or Fol: No Subjective Patient reports: Feels better Objective vital signs Vital Sign Date Time Temp Pulse Resp B/P (MAP) Pulse Ox O2 Delivery O2 Flow Rate FiO2 01/12/25 13:02 157/100 01/12/25 13:00 97.9 63 19 94 97.9 01/12/25 09:30 Nasal Cannula 2.0 01/12/25 09:30 28 Total Intake and Output 01/11/25 01/11/25 01/12/25 15:00 23:00 07:00 Intake Total 50 ml 2310 ml 1600 ml Output Total 1175 ml 700 ml Balance 50 ml 1135 ml 900 ml medications Current Medications Medications Dose Ordered Sig/Cookie Route Start Time Stop Time Status Last Admin Dose Admin Atorvastatin Calcium 20 mg HS PO 01/07/25 22:00 01/11/25 21:42 20 MG Metoprolol Tartrate 50 mg BID PO 01/07/25 10:00 01/12/25 08:57 50 MG Patient Own Medication 50 mg DAILY PO 01/07/25 10:00 01/12/25 08:58 50 MG Sodium Chloride 10 ml Q8HR IV 01/07/25 06:00 01/12/25 13:01 10 ML Acetaminophen 650 mg Q6HP PRN PO 01/06/25 22:15 01/07/25 23:08 650 MG Hydralazine HCl 10 mg Q8HR PO 01/07/25 22:00 01/12/25 13:02 10 MG Aspirin 81 mg DAILY PO 01/08/25 10:00 01/12/25 08:57 81 MG Oxycodone/ Acetaminophen 1 tab Q6HP PRN PO 01/08/25 12:45 01/12/25 13:58 1 TAB Enoxaparin Sodium 150 mg Q12HR SC 01/08/25 22:00 01/12/25 09:09 150 MG Daptomycin 500 mg/ Sodium Chloride 50 ml @ 100 mls/hr DAILY IV 01/09/25 21:00 01/12/25 09:09 100 MLS/HR Bumetanide 1 mg BID IV 01/10/25 13:45 01/12/25 09:09 1 MG Levofloxacin/ Dextrose 100 ml @ 100 mls/hr DAILY@2300 IV 01/10/25 23:00 01/11/25 22:39 100 MLS/HR Examination: GENERAL:Abnormal, CVS:Normal, SKIN:Abnormal laboratory and microbiology Laboratory Tests 01/12/25 04:39 Test 01/12/25 04:39 Range/Units Serum Glucose 86 74-106 mg/dL Microbiology Date/Time Source Procedure Growth Status 01/08/25 14:45 Leg Right Gram Stain - Final Resulted 01/08/25 14:45 Leg Right Wound Culture - Preliminary Resulted Problem List/Assessment/Plan Problem List/Assessment/Plan GONZÁLEZ, on CKD , 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 Increased urine output Strict I&Os IV antibiotics I agree with diuresis Percutaneous kidney biopsy recommended however procedure declined by radiology due to high risk. will recommend outpatient f/u in [facility] no indication for dialysis Blood pressure control Plan discussed with: Patient Dietary Evaluation Review Comments: Nutrition Recommendation: 1) Consider NCS + cardiac diet 2) Bryce 1 pk BID 3) Refer Engine Pilot for diabetes education (Pre-DM) 4) Monitor PO intake, lab values, weight trend, and I/O Expected Outcomes/Goals: Wound to improve Fu 3-5 days SAMANTHA URBINA MD Jan 12, 2025 16:00
[2025-01-13] VITALS (8 sets, daily range): BP systolic 123–140; BP diastolic 69–78; PULSE 65–73; RESP 16–22; TEMP 97.2–98.6; O2SAT 94–98
[2025-01-13 05:59] LABS: Nucleated Red Blood Cells % 0.0 %
[2025-01-13 06:03] LABS: Hematocrit 33.0 % (41.0-53.0); Hemoglobin 10.4 g/dL (13.5-17.5); Mean Corpuscular Hemoglobin 25.7 pg (28.0-32.0); Mean Corpuscular Volume 81.7 fL (80.0-100.0)
[2025-01-13 06:16] LABS: Alanine Aminotransferase 15 U/L (7-40); Albumin 3.9 g/dL (3.2-4.8); Alkaline Phosphatase 62 U/L (46-116); Anion Gap 10 (5-15); BUN/Creatinine Ratio 11.9 (10.0-20.0); Blood Urea Nitrogen 39 mg/dL (9-23); Calcium 9.0 mg/dL (8.7-10.4); Carbon Dioxide 30 mmol/L (20-31); Chloride 100 mmol/L (98-107); Glucose 81 mg/dL (74-106); Potassium 3.7 mmol/L (3.5-5.1); Sodium 140 mmol/L (136-145); Total Protein 8.1 g/dL (5.7-8.2)
[2025-01-13 06:30] LABS: Bilirubin, Total 0.4 mg/dL (0.2-1.0)
--- NOTE | 2025-01-13 09:13 | DVHPN2 ---
Progress Note Date Seen: Jan 13, 2025 Medical Necessity Reason Pt with a Central, PICC or Fol: No Objective vital signs Vital Sign Date Time Temp Pulse Resp B/P (MAP) Pulse Ox O2 Delivery O2 Flow Rate FiO2 01/13/25 06:13 140/72 01/13/25 05:00 98.6 72 22 98 98.6 01/12/25 20:00 Nasal Cannula* 2 28 Total Intake and Output 01/12/25 01/12/25 01/13/25 14:59 22:59 06:59 Intake Total 50 ml 750 ml 1600 ml Output Total 1000 ml 1550 ml Balance 50 ml -250 ml 50 ml medications Current Medications Medications Dose Ordered Sig/Cookie Route Start Time Stop Time Status Last Admin Dose Admin Atorvastatin Calcium 20 mg HS PO 01/07/25 22:00 01/12/25 22:02 20 MG Metoprolol Tartrate 50 mg BID PO 01/07/25 10:00 01/12/25 22:02 50 MG Patient Own Medication 50 mg DAILY PO 01/07/25 10:00 01/12/25 08:58 50 MG Sodium Chloride 10 ml Q8HR IV 01/07/25 06:00 01/13/25 06:13 10 ML Acetaminophen 650 mg Q6HP PRN PO 01/06/25 22:15 01/07/25 23:08 650 MG Hydralazine HCl 10 mg Q8HR PO 01/07/25 22:00 01/13/25 06:13 10 MG Aspirin 81 mg DAILY PO 01/08/25 10:00 01/12/25 08:57 81 MG Oxycodone/ Acetaminophen 1 tab Q6HP PRN PO 01/08/25 12:45 01/13/25 06:13 1 TAB Enoxaparin Sodium 150 mg Q12HR SC 01/08/25 22:00 01/12/25 22:03 150 MG Daptomycin 500 mg/ Sodium Chloride 50 ml @ 100 mls/hr DAILY IV 01/09/25 21:00 01/12/25 09:09 100 MLS/HR Bumetanide 1 mg BID IV 01/10/25 13:45 01/12/25 22:02 1 MG Levofloxacin/ Dextrose 100 ml @ 100 mls/hr DAILY@2300 IV 01/10/25 23:00 01/12/25 23:52 100 MLS/HR Examination: GENERAL:Abnormal, CVS:Normal, ABDOMEN:Normal, SKIN:Abnormal laboratory and microbiology Laboratory Tests 01/13/25 04:40 Test 01/13/25 04:40 Range/Units Serum Glucose 81 74-106 mg/dL Microbiology Date/Time Source Procedure Growth Status 01/08/25 14:45 Leg Right Gram Stain - Final Resulted 01/08/25 14:45 Leg Right Wound Culture - Preliminary Resulted Problem List/Assessment/Plan Problem List/Assessment/Plan GONZÁLEZ, on CKD , 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 renal function continues to improve Increased urine output Strict I&Os IV antibiotics, noted ESBL wound infection currently getting treated I agree with diuresis Percutaneous kidney biopsy recommended however procedure declined by radiology due to high risk. will recommend outpatient f/u in [facility] no indication for dialysis Blood pressure control Plan discussed with: Patient Dietary Evaluation Review Comments: Nutrition Recommendation: 1) Consider NCS + cardiac diet 2) Bryce 1 pk BID 3) Refer Client Server Developer for diabetes education (Pre-DM) 4) Monitor PO intake, lab values, weight trend, and I/O Expected Outcomes/Goals: Wound to improve Fu 3-5 days SAMANTHA URBINA MD Jan 13, 2025 09:13
[2025-01-13] MEDS ORDERED: ATOR20TA50 PO (14:04)
[2025-01-13] MEDS ORDERED: MET50T PO (14:04)
[2025-01-13] MEDS ORDERED: ASPI-543 PO (14:04)
--- NOTE | 2025-01-13 14:07 | DVHDS2 ---
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 (Patient reports of having fever 6 days back, and after 2 days developed red urine) Hematuria, due to above HIV Obstructive sleep apnea Cor pulmonale, due to above Morbid obesity History of DVT Chronic venous stasis Hypertension Dyslipidemia Bilateral lower extremity cellulitis ESBL wound Labs/Diagnostic Data: Laboratory Results Test 01/13/25 04:40 01/12/25 04:39 01/10/25 01:43 01/09/25 21:18 White Blood Count 11.9 10^3/uL (4.4-10.8) Red Blood Count 4.04 10^6/uL (4.5-5.90) Hemoglobin 10.4 g/dL (13.5-17.5) Hematocrit 33.0 % (41.0-53.0) Mean Corpuscular Volume 81.7 fL (80.0-100.0) Mean Corpuscular Hemoglobin 25.7 pg (28.0-32.0) Mean Corpuscular Hemoglobin Concent 31.5 g/dL (32.0-36.0) Red Cell Distribution Width 17.8 % (11.8-14.3) Platelet Count 421 10^3/uL (140-450) Mean Platelet Volume 8.1 fL (6.9-10.8) Neutrophils (%) (Auto) 72.5 % (37.0-80.0) Lymphocytes (%) (Auto) 15.3 % (10.0-50.0) Monocytes (%) (Auto) 8.4 % (0.0-12.0) Eosinophils (%) (Auto) 3.6 % (0.0-7.0) Basophils (%) (Auto) 0.2 % (0.0-2.0) Neutrophils # (Auto) 8.6 10 ^3/uL (1.6-8.6) Lymphocytes # (Auto) 1.8 10 ^3/uL (0.4-5.4) Monocytes # (Auto) 1.0 10 ^3/uL (0-1.3) Eosinophils # (Auto) 0.4 10 ^3/uL (0-0.8) Basophils # (Auto) 0 10 ^3/uL (0-0.2) Nucleated Red Blood Cells 0.0 % Sodium Level 140 mmol/L (136-145) Potassium Level 3.7 mmol/L (3.5-5.1) Chloride Level 100 mmol/L (98-107) Carbon Dioxide Level 30 mmol/L (20-31) Anion Gap 10 (5-15) Blood Urea Nitrogen 39 mg/dL (9-23) Creatinine 3.28 mg/dL (0.700-1.30) Glomerular Filtration Rate Calc 23 mL/min (>90) BUN/Creatinine Ratio 11.9 (10.0-20.0) Serum Glucose 81 mg/dL (74-106) Calcium Level 9.0 mg/dL (8.7-10.4) Total Bilirubin 0.4 mg/dL (0.2-1.0) Aspartate Amino Transferase (AST) 22 U/L (13-40) Alanine Aminotransferase (ALT) 15 U/L (7-40) Alkaline Phosphatase 62 U/L (46-116) Total Protein 8.1 g/dL (5.7-8.2) Albumin 3.9 g/dL (3.2-4.8) Differential Total Cells Counted 100.0 (100) Neutrophils % (Manual) 64 (37.0-80.0) Band Neutrophils % (Manual) 5 Lymphocytes % (Manual) 18 (10.0-50.0) Monocytes % (Manual) 8 (0-12) Eosinophils % (Manual) 3 (0-7) Basophils % (Manual) 0 (0.0-2.0) Metamyelocytes % (manual) 1 Myelocytes % (Manual) 1 Promyelocytes % (Manual) 0 Blast Cells % (Manual) 0 Reactive Lymphocytes 0 Platelet Estimate Adequate Hypochromasia (manual) Slight Anisocytosis (manual) Slight Creatine Kinase 1022 U/L (46-171) POC Glucose 118 mg/dl (70-106) Test 01/09/25 13:25 01/09/25 04:53 01/08/25 11:30 01/08/25 04:51 Anti-Nuclear Antibody Comment Comment (.) Cytoplasmic ANCA (c-ANCA) Antibody <1:20 titer (Neg:<1:20) Anti-Proteinase 3 (c-ANCA) <0.2 units (0.0-0.9) Atypical p-ANCA <1:20 titer (Neg:<1:20) Perinuclear ANCA (p-ANCA) Antibody <1:20 titer (Neg:<1:20) Myeloperoxidase Antibody <0.2 units (0.0-0.9) SIENA-1 Antibody <0.2 AI (0.0-0.9) SS-A/Ro Antibody <0.2 AI (0.0-0.9) SS-B/La Antibody <0.2 AI (0.0-0.9) Sm Antibody <0.2 AI (0.0-0.9) [employer]GER Antibody 0.6 AI (0.0-0.9) Scl-70 (Scleroderma) Antibody <0.2 AI (0.0-0.9) Anti-Double Strand DNA Antibody 3 IU/mL (0-9) Chromatin Antibody <0.2 AI (0.0-0.9) Centromere B Antibody <0.2 AI (0.0-0.9) Complement C3 261 mg/dL (82-167) Complement C4 32 mg/dL (12-38) Hepatitis A IgM Antibody Negative Hepatitis B Surface Antigen Negative (Negative) Hepatitis B Core IgM Antibody Negative (Negative) Hepatitis C Antibody Negative (Negative) Parathyroid Hormone (Intact) 118.5 pg/mL (18.4-80.1) Urine Color Yellow (Yellow) Urine Clarity Turbid (Clear) Urine pH 5.5 (5.0-9.0) Urine Specific [place] 1.015 (1.001-1.035) Urine Protein 1+ (Negative) Urine Ketones Negative (Negative) Urine Blood 3+ /uL (Negative) Urine Nitrite Negative (Negative) Urine Bilirubin Negative (Negative) Urine Urobilinogen Normal mg/dL (Negative) Urine Leukocyte Esterase Negative /uL (Negative) Urine RBC 56 /hpf (0 - 3) Urine Microscopic WBC 10 /HPF (0-3) Urine Squamous Epithelial Cells Few /hpf (<5) Urine Bacteria Few /hpf (None Seen) Urine Yeast (Budding) Occasional /hpf (None Urine Creatinine 120.02 mg/dL (30.0-125.0) Urine Protein/Creatinine Ratio 1.06 Urine Sodium 49 mmol/L (40-220) Urine Potassium 40 mmol/L (12-62) Urine Glucose Normal mg/dL (Normal) Urine Total Protein 127.2 mg/dL (1-14) Phosphorus Level 3.6 mg/dL (2.4-5.1) Magnesium Level 1.8 mg/dL (1.6-2.6) Test 01/07/25 14:44 01/06/25 18:16 Absolute Neutrophils (auto) 11.6 x10E3/uL (1.4-7.0) Absolute Lymphocytes (auto) 1.5 x10E3/uL (0.7-3.1) Absolute Monocytes (auto) 1.4 x10E3/uL (0.1-0.9) Absolute Eosinophils (auto) 0.3 x10E3/uL (0.0-0.4) Absolute Basophils (auto) 0.0 x10E3/uL (0.0-0.2) Immature Granulocytes % 0 % (Not Estab.) Immature Granulocytes # 0 x10E3/uL (0.0-0.1) Immature Blood Cells (.) Hematology Comments (.) Percent CD4 Cells 16.5 % (30.8-58.5) Absolute CD4 Count 248 /uL (359-1519) T-Lymphocyte CD4/CD8 Ratio 0.35 (0.92-3.72) Percent CD8 Cells 47.7 % (12.0-35.5) Absolute CD8 Count 716 /uL (109-897) HIV-1 RNA (PCR) 40 copies/mL (.) HIV-1 RNA (PCR) log10 Value 1.602 (.) Prothrombin Time 11.5 sec (9.3-11.8) Prothrombin Time INR 1.09 (0.9-1.15) Activated Partial Thromboplast Time 31.9 SEC (24.5-34.5) B-Type Natriuretic Peptide 11.38 pg/mL (0-100) Lipase 27 U/L (12-53) Other Laboratory Tests 01/13/25 04:40 Brief Hx & Hospital Course: Patient needs 45 years old male admitted for GONZÁLEZ on CKD, hematuria and bilateral lower extremity cellulitis. And nephrology suspect IgA nephropathy plan to the biopsy for DVT body habitus unable to biopsy. Patient renal function slowly improving. Recommended follow up outpatient Nephrology two weeks. Surgery saw the bilateral lower extremity one showed no source of infection. Discontinue antibiotics. Patient is stable to be discharged home follow up with the outpatient home with home health Condition at Discharge: Stable Final Diagnosis/Problems List GONZÁLEZ on CKD lower leg pressure ulcer stage 2 Discharge Disposition: Home with Health Services Discharge Instruct/Medications Diet: Renal Activity: No Restrictions, As Tolerated Follow Up/Referral: Follow up with the PCP in one week Follow with the Nephrology Dr. Freeman in one week Scheduled Aspirin (Aspir-Low), 81 MG PO DAILY Atorvastatin Calcium (Atorvastatin Calcium), 20 MG PO HS Bumetanide (Bumetanide), 1 TAB PO DAILY, (Reported) Dolutegravir Sodium-Lamivudine (Dovato 50-300 mg), 1 TAB PO DAILY, (Reported) Hydralazine HCl (Hydralazine HCl), 1 TAB PO TID, (Reported) Losartan Potassium (Losartan Potassium), 1 TAB PO DAILY, (Reported) Metoprolol Tartrate (Lopressor), 1 TAB PO BID, (Reported) Metoprolol Tartrate (Lopressor Tablet), 50 MG PO BID Potassium Chloride (Potassium Chloride ER), 1 TAB PO BID, (Reported) Rosuvastatin Calcium (Rosuvastatin Calcium), 1 TAB PO DAILY, (Reported) Spironolactone (Spironolactone), 1 TAB PO DAILY, (Reported) Sulfamethoxazole W/Trimethopri (Bactrim Ds Tablet), 1 TAB PO BID Tamsulosin Hcl (Tamsulosin Hcl), 1 TAB PO DAILY, (Reported) Discharge Statement: "Patient was advised to return to the ER or call 911 if any headaches, dizziness, shortness of breath, chest pain, abdominal pain, bleeding, fevers, or worsening of medical condition. Patient was counseled about treatment plan, medications, possible side effects, patientverbalized understanding. All questions were answered to the best of my ability. This discharge took greater then 30 minutes in planning, reviewing documentation, counseling the patient, and discussing with other team members." ASSESSMENT ASSESSMENT Assessment GONZÁLEZ on CKD lower leg pressure ulcer stage 2 Date of Service: Jan 13, 2025 Billing Provider: UMESH KILPATRICK MD Common Visit Codes: [id number] DISCH DAY >30min UMESH KILPATRICK MD Jan 13, 2025 14:07
[2025-01-14] VITALS (9 sets, daily range): BP systolic 113–136; BP diastolic 74–81; PULSE 63–73; RESP 16–22; TEMP 97.5–98.3; O2SAT 96–99
[2025-01-14 07:27] LABS: Hematocrit 33.5 % (41.0-53.0); Hemoglobin 10.8 g/dL (13.5-17.5); Mean Corpuscular Hemoglobin 26.3 pg (28.0-32.0)
[2025-01-14 07:30] LABS: Mean Corpuscular Volume 81.5 fL (80.0-100.0)
[2025-01-14 07:49] LABS: Alanine Aminotransferase 14 U/L (7-40); Albumin 3.7 g/dL (3.2-4.8); Alkaline Phosphatase 58 U/L (46-116); Anion Gap 13 (5-15); BUN/Creatinine Ratio 10.3 (10.0-20.0); Calcium 9.0 mg/dL (8.7-10.4); Carbon Dioxide 27 mmol/L (20-31); Chloride 100 mmol/L (98-107); Glucose 74 mg/dL (74-106); Potassium 3.8 mmol/L (3.5-5.1); Sodium 140 mmol/L (136-145); Total Protein 8.1 g/dL (5.7-8.2)
[2025-01-14 07:50] LABS: Blood Urea Nitrogen 31 mg/dL (9-23)
[2025-01-14 07:51] LABS: Bilirubin, Total 0.3 mg/dL (0.2-1.0)
[2025-01-14 08:35] LABS: Anisocytosis Slight; Total Cells Counted 100.0 (100)
--- NOTE | 2025-01-14 08:39 | DVHPN2 ---
Progress Note Date Seen: Jan 14, 2025 Resident Creating Document: SHAKIRA ALMANZAR RESDIENT Medical Necessity Reason Pt with a Central, PICC or Fol: No Subjective Review of Systems Patient seen and examined at bedside, patient is feeling better since admission Patient reports: No new complaints Other Systems: Patient seen and examined by myself today on rounds with the medicine resident, I agree with the assessment and plan Objective vital signs Vital Sign Date Time Temp Pulse Resp B/P (MAP) Pulse Ox O2 Delivery O2 Flow Rate FiO2 01/14/25 06:46 136/79 01/14/25 04:38 97.7 69 22 98 97.7 01/13/25 20:00 Nasal Cannula* 2 28 Total Intake and Output 01/13/25 01/13/25 01/14/25 15:00 23:00 07:00 Intake Total 50 ml 1500 ml 700 ml Output Total 1350 ml 3 ml Balance 50 ml 150 ml 697 ml medications Current Medications Medications Dose Ordered Sig/Cookie Route Start Time Stop Time Status Last Admin Dose Admin Atorvastatin Calcium 20 mg HS PO 01/07/25 22:00 01/13/25 22:25 20 MG Metoprolol Tartrate 50 mg BID PO 01/07/25 10:00 01/13/25 22:26 50 MG Patient Own Medication 50 mg DAILY PO 01/07/25 10:00 01/13/25 09:14 50 MG Sodium Chloride 10 ml Q8HR IV 01/07/25 06:00 01/14/25 06:46 10 ML Acetaminophen 650 mg Q6HP PRN PO 01/06/25 22:15 01/07/25 23:08 650 MG Hydralazine HCl 10 mg Q8HR PO 01/07/25 22:00 01/14/25 06:46 10 MG Aspirin 81 mg DAILY PO 01/08/25 10:00 01/13/25 09:15 81 MG Oxycodone/ Acetaminophen 1 tab Q6HP PRN PO 01/08/25 12:45 01/13/25 06:13 1 TAB Enoxaparin Sodium 150 mg Q12HR SC 01/08/25 22:00 01/13/25 22:26 150 MG Daptomycin 500 mg/ Sodium Chloride 50 ml @ 100 mls/hr DAILY IV 01/09/25 21:00 01/13/25 09:13 100 MLS/HR Bumetanide 1 mg BID IV 01/10/25 13:45 01/13/25 22:25 1 MG Levofloxacin/ Dextrose 100 ml @ 100 mls/hr DAILY@2300 IV 01/10/25 23:00 01/13/25 22:36 100 MLS/HR Examination General Appearance: Alert, Oriented X3, Cooperative, lying on the bed, morbid obesity HEENT: Atraumatic, PERRLA, EOMI, Mucous membrane moist/pink Respiratory: Bilaterally decreased breath sounds Cardiovascular: Regular rate, Normal S1, Normal S2, No murmurs, no chest wall tenderness Abdominal: Normal bowel sounds, Soft, No tenderness, No hepatospenomegaly, No masses Extremities: No clubbing, No cyanosis, No edema, Normal pulses, No tenderness/swelling Skin: Bilateral grade 3-4 pedal edema with chronic skin changes possibly due to stasis dermatitis, amputated left foot fingers Neuro: Normal gait, Normal speech, Strength at 5/5 X4 ext, Normal tone, Sensation intact, Cranial nerves 3-12 NL, Reflexes 2+ Psych/Mental Status: Mental status NL, Mood NL laboratory and microbiology Laboratory Tests 01/14/25 05:11 Test 01/14/25 05:11 Range/Units Serum Glucose 74 74-106 mg/dL Microbiology Date/Time Source Procedure Growth Status 01/08/25 14:45 Leg Right Gram Stain - Final Resulted 01/08/25 14:45 Leg Right Wound Culture - Preliminary Resulted Labs and/or images reviewed: Labs reviewed by me, Image(s) reviewed by me Problem List/Assessment/Plan Problem List/Assessment/Plan This is a 44-year-old morbidly obese gentleman with past medical history of HIV, chronic venous stasis, DVT, hypertension, dyslipidemia, DVT, RV failure (cor pulmonale), obstructive sleep apnea, came to the hospital due to blood in urine and bilateral lower limb swelling. 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 Cameron) * Kidney Function is improving * Consulted IR for renal biopsy, has been declined kidney biopsy due to high risk of bleeding& morbidity * Bumex 1 mg b.i.d. * Strict I&Os * Renal diet * We will follow up with the patient Thank you for giving us the opportunity to take area of the patient. Please call back if you have any questions/concerns. Plan discussed with: Patient, Other (RN) Dietary Evaluation Review Comments: Nutrition Recommendation: 1) Consider NCS + cardiac diet 2) Bryce 1 pk BID 3) Refer Conference Translator for diabetes education (Pre-DM) 4) Monitor PO intake, lab values, weight trend, and I/O Expected Outcomes/Goals: Wound to improve Fu 3-5 days SHAKIRA ALMANZAR Jan 14, 2025 08:39 АННА CAMERON MD Jan 14, 2025 11:33
--- NOTE | 2025-01-14 10:32 | CONS ---
Pharmacy Clinical Information: Pt on daptomycin; daptomycin may elevate CPK and effect is increased in patients on HMG-CoA reductase inhibitors and those with renal impairment. CPK = 1022; recommend d/c atorvastatin while patient is on daptomycin MARCUS SANDOVAL PHARMACIST Jan 14, 2025 10:32
--- NOTE | 2025-01-14 12:28 | DVHPN2 ---
Subjective in bed resting Reviewed: H&P Changes from previous H/P or p: No Changes Eyes: No Pain, No Vision change, No Conjunctivae inflammation, No Eyelid inflammation, No Other, No Redness ENT: No Ear pain, No Ear discharge, No Nose pain, No Nose discharge, No Nose congestion, No Mouth pain, No Mouth swelling, No Throat pain, No Throat swelling, No Other Cardiovascular: No Chest Pain, No Palpitations, No Orthopnea, No Paroxysmal Noc. Dyspnea, No Edema, No Lt Headedness, No Other Respiratory: No Cough, No Dry, No Shortness of breath, No SOB with excertion, No Wheezing, No Hemoptysis, No Pleuritic Pain, No Sputum, No Other Gastrointestinal: No Nausea, No Vomiting, No Abdominal Pain, No Diarrhea, No Constipation, No Melena, No Hematochezia, No Other Genitourinary: No Dysuria, No Frequency, No Incontinence; Hematuria; No Retention, No Other Musculoskeletal: other (Left foot amputation, Joint pain, joint swelling.); No neck pain, No shoulder pain, No arm pain, No back pain, No hand pain, No leg pain, No foot pain Skin: No Rash, No Lesions, No Jaundice, No Bruising, No Other Objective Vitals Vital Signs Date Time Temp Pulse Resp B/P (MAP) Pulse Ox O2 Delivery O2 Flow Rate FiO2 01/14/25 10:00 97 Nasal Cannula 3.0 01/14/25 10:00 32 01/14/25 09:39 66 131/74 01/14/25 08:45 97.5 18 97.5 Intake/Output Intake and Output 01/14/25 07:00 Intake Total 2250 ml Output Total 1353 ml Balance 897 ml Intake Oral 2100 ml IV Total 150 ml Output Urine Total 1353 ml General Appearance: Alert, Oriented X3 HEENT: Atraumatic Lungs: Clear to auscultation Cardiovascular: Regular rate, Normal S1, Normal S2 Medications Current Medications Medications Dose Ordered Sig/Cookie Route Start Time Stop Time Status Last Admin Dose Admin Atorvastatin Calcium 20 mg HS PO 01/07/25 22:00 01/13/25 22:25 20 MG Metoprolol Tartrate 50 mg BID PO 01/07/25 10:00 01/14/25 09:39 50 MG Patient Own Medication 50 mg DAILY PO 01/07/25 10:00 01/14/25 09:38 50 MG Sodium Chloride 10 ml Q8HR IV 01/07/25 06:00 01/14/25 06:46 10 ML Acetaminophen 650 mg Q6HP PRN PO 01/06/25 22:15 01/07/25 23:08 650 MG Hydralazine HCl 10 mg Q8HR PO 01/07/25 22:00 01/14/25 06:46 10 MG Aspirin 81 mg DAILY PO 01/08/25 10:00 01/14/25 09:38 81 MG Oxycodone/ Acetaminophen 1 tab Q6HP PRN PO 01/08/25 12:45 01/13/25 06:13 1 TAB Enoxaparin Sodium 150 mg Q12HR SC 01/08/25 22:00 01/14/25 09:39 150 MG Daptomycin 500 mg/ Sodium Chloride 50 ml @ 100 mls/hr DAILY IV 01/09/25 21:00 01/14/25 09:37 100 MLS/HR Bumetanide 1 mg BID IV 01/10/25 13:45 01/14/25 09:38 1 MG Levofloxacin/ Dextrose 100 ml @ 100 mls/hr DAILY@2300 IV 01/10/25 23:00 01/13/25 22:36 100 MLS/HR Laboratory Results Laboratory Tests 01/14/25 05:11 Chemistry Test 01/14/25 05:11 Albumin 3.7 g/dL (3.2-4.8) Calcium Level 9.0 mg/dL (8.7-10.4) Total Protein 8.1 g/dL (5.7-8.2) LFT Test 01/14/25 05:11 Alanine Aminotransferase (ALT) 14 U/L (7-40) Alkaline Phosphatase 58 U/L (46-116) Aspartate Amino Transferase (AST) 21 U/L (13-40) Total Bilirubin 0.3 mg/dL (0.2-1.0) Urinalysis Test 01/08/25 11:30 Urine Color Yellow (Yellow) Urine Clarity Turbid (Clear) H Urine pH 5.5 (5.0-9.0) Urine Specific [place] 1.015 (1.001-1.035) Urine Protein 1+ (Negative) H Urine Ketones Negative (Negative) Urine Blood 3+ /uL (Negative) H Urine Nitrite Negative (Negative) Urine Bilirubin Negative (Negative) Urine Urobilinogen Normal mg/dL (Negative) Urine Leukocyte Esterase Negative /uL (Negative) Urine RBC 56 /hpf (0 - 3) Urine Microscopic WBC 10 /HPF (0-3) H Urine Squamous Epithelial Cells Few /hpf (<5) Urine Bacteria Few /hpf (None Seen) H Urine Yeast (Budding) Occasional /hpf (None Urine Creatinine 120.02 mg/dL (30.0-125.0) Urine Protein/Creatinine Ratio 1.06 Urine Sodium 49 mmol/L (40-220) Urine Potassium 40 mmol/L (12-62) Urine Glucose Normal mg/dL (Normal) Urine Total Protein 127.2 mg/dL (1-14) H Microbiology Microbiology Date/Time Source Procedure Growth Status 01/08/25 14:45 Leg Right Gram Stain - Final Resulted 01/08/25 14:45 Wound Culture - Preliminary Methicillin Resistant S.aureus Resulted Assessment/Plan Assessment/Plan gross hematuria GONZÁLEZ ATN severe RV failure HFpEF HIV acute on chronic diastolic HF morbid obesity IVONNE HLD preDM chronic pain chronic venous stasis DVT LLE on pradaxa celulitis? 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 on asa iga nephropathy? dapto and levaquin bipap at night bumex, aldactone resume home meds resume dovato pradaxa to lovenox CD4 200s pain management o2 maintain spo2 >92 Renal function slowly improving blood culture strict io Follow up with nephrology rec urinary if knee biopsy. Patient will need Nephrology outpatient Consult ID for multiple drug resistant bacteria in wounds diet cardiac dvt ppx on lovenox Plan discussed with: Patient My Orders Orders - LATISHA CALVO MD Procedure Category Date Status Time * Infectious M[facility] CONS 01/14/25 Transmitted Catalina Morrison 12:25 Date of Service: Jan 14, 2025 Billing Provider: LATISHA CALVO MD Common Visit Codes: [id number] INP/OBS CARE(HIGH) LATISHA CALVO MD Jan 14, 2025 12:28
[2025-01-15] VITALS (9 sets, daily range): BP systolic 120–152; BP diastolic 68–93; PULSE 63–69; RESP 16–20; TEMP 97.3–98.3; O2SAT 96–100
[2025-01-15 07:26] LABS: Hematocrit 31.5 % (41.0-53.0)
[2025-01-15 07:29] LABS: Hemoglobin 10.3 g/dL (13.5-17.5); Mean Corpuscular Hemoglobin 26.4 pg (28.0-32.0); Mean Corpuscular Volume 81.1 fL (80.0-100.0)
[2025-01-15 07:31] LABS: Alanine Aminotransferase 13 U/L (7-40); Albumin 3.7 g/dL (3.2-4.8); Alkaline Phosphatase 58 U/L (46-116); Anion Gap 10 (5-15); BUN/Creatinine Ratio 11.8 (10.0-20.0); Bilirubin, Total 0.3 mg/dL (0.2-1.0); Calcium 8.9 mg/dL (8.7-10.4); Chloride 100 mmol/L (98-107); Sodium 143 mmol/L (136-145); Total Protein 8.0 g/dL (5.7-8.2)
[2025-01-15 07:32] LABS: Blood Urea Nitrogen 35 mg/dL (9-23); Carbon Dioxide 33 mmol/L (20-31); Glucose 55 mg/dL (74-106); Potassium 3.1 mmol/L (3.5-5.1)
[2025-01-15 08:46] LABS: Anisocytosis Slight; Stomatocytes Few; Total Cells Counted 100.0 (100)
--- NOTE | 2025-01-15 10:40 | DVHPN2 ---
Progress Note Date Seen: Jan 15, 2025 Resident Creating Document: SHAKIRA ALMANZAR RESDIENT Medical Necessity Reason Pt with a Central, PICC or Fol: No Subjective Review of Systems Patient seen and examined at bedside, patient is feeling better since admission Other Systems: Patient seen and examined by myself today on rounds with the medicine resident, I agree with the assessment and plan Objective vital signs Vital Sign Date Time Temp Pulse Resp B/P (MAP) Pulse Ox O2 Delivery O2 Flow Rate FiO2 01/15/25 08:36 97.7 68 20 131/71 (91) 96 97.7 01/14/25 20:00 Nasal Cannula* 3 32 Total Intake and Output 01/14/25 01/14/25 01/15/25 15:00 23:00 07:00 Intake Total 270 ml 550 ml 1500 ml Output Total 1150 ml 1150 ml Balance 270 ml -600 ml 350 ml medications Current Medications Medications Dose Ordered Sig/Cookie Route Start Time Stop Time Status Last Admin Dose Admin Atorvastatin Calcium 20 mg HS PO 01/07/25 22:00 01/14/25 20:37 20 MG Metoprolol Tartrate 50 mg BID PO 01/07/25 10:00 01/14/25 20:38 50 MG Patient Own Medication 50 mg DAILY PO 01/07/25 10:00 01/14/25 09:38 50 MG Sodium Chloride 10 ml Q8HR IV 01/07/25 06:00 01/15/25 06:11 10 ML Acetaminophen 650 mg Q6HP PRN PO 01/06/25 22:15 01/07/25 23:08 650 MG Hydralazine HCl 10 mg Q8HR PO 01/07/25 22:00 01/15/25 06:12 10 MG Aspirin 81 mg DAILY PO 01/08/25 10:00 01/14/25 09:38 81 MG Oxycodone/ Acetaminophen 1 tab Q6HP PRN PO 01/08/25 12:45 01/13/25 06:13 1 TAB Enoxaparin Sodium 150 mg Q12HR SC 01/08/25 22:00 01/14/25 20:36 150 MG Daptomycin 500 mg/ Sodium Chloride 50 ml @ 100 mls/hr DAILY IV 01/09/25 21:00 01/14/25 09:37 100 MLS/HR Bumetanide 1 mg BID IV 01/10/25 13:45 11/3/25 22:30 1 MG Levofloxacin/ Dextrose 100 ml @ 100 mls/hr DAILY@2300 IV 01/10/25 23:00 01/15/25 00:10 100 MLS/HR Examination General Appearance: Alert, Oriented X3, Cooperative, lying on the bed, morbid obesity HEENT: Atraumatic, PERRLA, EOMI, Mucous membrane moist/pink Respiratory: Bilaterally decreased breath sounds Cardiovascular: Regular rate, Normal S1, Normal S2, No murmurs, no chest wall tenderness Abdominal: Normal bowel sounds, Soft, No tenderness, No hepatospenomegaly, No masses Extremities: No clubbing, No cyanosis, No edema, Normal pulses, No tenderness/swelling Skin: Bilateral grade 3-4 pedal edema with chronic skin changes possibly due to stasis dermatitis, amputated left foot fingers Neuro: Normal gait, Normal speech, Strength at 5/5 X4 ext, Normal tone, Sensation intact, Cranial nerves 3-12 NL, Reflexes 2+ Psych/Mental Status: Mental status NL, Mood NL laboratory and microbiology Laboratory Tests 01/15/25 04:45 Test 01/15/25 04:45 Range/Units Serum Glucose 55 L 74-106 mg/dL Microbiology Date/Time Source Procedure Growth Status 01/08/25 14:45 Leg Right Gram Stain - Final Resulted 01/08/25 14:45 Wound Culture - Preliminary Methicillin Resistant S.aureus Resulted Problem List/Assessment/Plan Problem List/Assessment/Plan This is a 44-year-old morbidly obese gentleman with past medical history of HIV, chronic venous stasis, DVT, hypertension, dyslipidemia, DVT, RV failure (cor pulmonale), obstructive sleep apnea, came to the hospital due to blood in urine and bilateral lower limb swelling. 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 Cameron) * Kidney Function is improving * Consulted IR for renal biopsy, has been declined kidney biopsy due to high risk of bleeding& morbidity * Bumex 1 mg b.i.d. * Strict I&Os * Renal diet * We will follow up with the patient Thank you for giving us the opportunity to take area of the patient. Please call back if you have any questions/concerns. Plan discussed with: Patient, Other (RN) My Orders My Orders Orders - SHAKIRA ALMANZAR Procedure Category Date Status Time Maintain Fluid ROMI 01/15/25 In Process Restrictions 08:45 Dietary Evaluation Review Comments: Nutrition Recommendation: 1) Consider NCS + cardiac diet 2) Bryce 1 pk BID 3) Refer Cementer Helper for diabetes education (Pre-DM) 4) Monitor PO intake, lab values, weight trend, and I/O Expected Outcomes/Goals: Wound to improve Fu 3-5 days SHAKIRA ALMANZAR Jan 15, 2025 10:40 АННА CAMERON MD Jan 15, 2025 11:03
--- NOTE | 2025-01-15 13:12 | DVHPN2 ---
Subjective in bed resting Reviewed: H&P Changes from previous H/P or p: No Changes Eyes: No Pain, No Vision change, No Conjunctivae inflammation, No Eyelid inflammation, No Other, No Redness ENT: No Ear pain, No Ear discharge, No Nose pain, No Nose discharge, No Nose congestion, No Mouth pain, No Mouth swelling, No Throat pain, No Throat swelling, No Other Cardiovascular: No Chest Pain, No Palpitations, No Orthopnea, No Paroxysmal Noc. Dyspnea, No Edema, No Lt Headedness, No Other Respiratory: No Cough, No Dry, No Shortness of breath, No SOB with excertion, No Wheezing, No Hemoptysis, No Pleuritic Pain, No Sputum, No Other Gastrointestinal: No Nausea, No Vomiting, No Abdominal Pain, No Diarrhea, No Constipation, No Melena, No Hematochezia, No Other Genitourinary: No Dysuria, No Frequency, No Incontinence; Hematuria; No Retention, No Other Musculoskeletal: other (Left foot amputation, Joint pain, joint swelling.); No neck pain, No shoulder pain, No arm pain, No back pain, No hand pain, No leg pain, No foot pain Skin: No Rash, No Lesions, No Jaundice, No Bruising, No Other Objective Vitals Vital Signs Date Time Temp Pulse Resp B/P (MAP) Pulse Ox O2 Delivery O2 Flow Rate FiO2 01/15/25 12:44 97.8 66 20 132/93 (106) 98 97.8 01/14/25 20:00 Nasal Cannula* 3 32 Intake/Output Intake and Output 01/15/25 07:00 Intake Total 2320 ml Output Total 2300 ml Balance 20 ml Intake Oral 2170 ml IV Total 150 ml Output Urine Total 2300 ml General Appearance: Alert, Oriented X3 HEENT: Atraumatic Lungs: Clear to auscultation Cardiovascular: Regular rate, Normal S1, Normal S2 Medications Current Medications Medications Dose Ordered Sig/Cookie Route Start Time Stop Time Status Last Admin Dose Admin Atorvastatin Calcium 20 mg HS PO 01/07/25 22:00 01/14/25 20:37 20 MG Metoprolol Tartrate 50 mg BID PO 01/07/25 10:00 01/15/25 11:25 50 MG Patient Own Medication 50 mg DAILY PO 01/07/25 10:00 01/15/25 11:26 50 MG Sodium Chloride 10 ml Q8HR IV 01/07/25 06:00 01/15/25 06:11 10 ML Acetaminophen 650 mg Q6HP PRN PO 01/06/25 22:15 01/07/25 23:08 650 MG Hydralazine HCl 10 mg Q8HR PO 01/07/25 22:00 01/15/25 06:12 10 MG Aspirin 81 mg DAILY PO 01/08/25 10:00 01/15/25 11:24 81 MG Oxycodone/ Acetaminophen 1 tab Q6HP PRN PO 01/08/25 12:45 01/15/25 11:24 1 TAB Enoxaparin Sodium 150 mg Q12HR SC 01/08/25 22:00 01/15/25 11:25 150 MG Daptomycin 500 mg/ Sodium Chloride 50 ml @ 100 mls/hr DAILY IV 01/09/25 21:00 01/15/25 12:23 100 MLS/HR Bumetanide 1 mg BID IV 01/10/25 13:45 01/15/25 11:27 1 MG Levofloxacin/ Dextrose 100 ml @ 100 mls/hr DAILY@2300 IV 01/10/25 23:00 01/15/25 00:10 100 MLS/HR Laboratory Results Laboratory Tests 01/15/25 04:45 Chemistry Test 01/15/25 04:45 Albumin 3.7 g/dL (3.2-4.8) Calcium Level 8.9 mg/dL (8.7-10.4) Total Protein 8.0 g/dL (5.7-8.2) LFT Test 01/15/25 04:45 Alanine Aminotransferase (ALT) 13 U/L (7-40) Alkaline Phosphatase 58 U/L (46-116) Aspartate Amino Transferase (AST) 19 U/L (13-40) Total Bilirubin 0.3 mg/dL (0.2-1.0) Urinalysis Test 01/08/25 11:30 Urine Color Yellow (Yellow) Urine Clarity Turbid (Clear) H Urine pH 5.5 (5.0-9.0) Urine Specific [place] 1.015 (1.001-1.035) Urine Protein 1+ (Negative) H Urine Ketones Negative (Negative) Urine Blood 3+ /uL (Negative) H Urine Nitrite Negative (Negative) Urine Bilirubin Negative (Negative) Urine Urobilinogen Normal mg/dL (Negative) Urine Leukocyte Esterase Negative /uL (Negative) Urine RBC 56 /hpf (0 - 3) Urine Microscopic WBC 10 /HPF (0-3) H Urine Squamous Epithelial Cells Few /hpf (<5) Urine Bacteria Few /hpf (None Seen) H Urine Yeast (Budding) Occasional /hpf (None Urine Creatinine 120.02 mg/dL (30.0-125.0) Urine Protein/Creatinine Ratio 1.06 Urine Sodium 49 mmol/L (40-220) Urine Potassium 40 mmol/L (12-62) Urine Glucose Normal mg/dL (Normal) Urine Total Protein 127.2 mg/dL (1-14) H Microbiology Microbiology Date/Time Source Procedure Growth Status 01/08/25 14:45 Leg Right Gram Stain - Final Complete 01/08/25 14:45 Wound Culture - Final Methicillin Resistant S.aureus Stenotrophomonas maltophilia Complete Assessment/Plan Assessment/Plan gross hematuria GONZÁLEZ ATN severe RV failure HFpEF HIV acute on chronic diastolic HF morbid obesity IVONNE HLD preDM chronic pain chronic venous stasis DVT LLE on pradaxa celulitis? 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 on asa iga nephropathy? dapto and levaquin bipap at night bumex, aldactone resume home meds resume dovato pradaxa to lovenox CD4 200s pain management o2 maintain spo2 >92 Renal function slowly improving blood culture strict io Follow up with nephrology rec urinary if knee biopsy. Patient will need Nephrology outpatient Consult ID for multiple drug resistant bacteria in wounds diet cardiac dvt ppx on lovenox Plan discussed with: Patient Date of Service: Jan 15, 2025 Billing Provider: LATISHA CALVO MD Common Visit Codes: [id number] INP/OBS CARE(HIGH) LATISHA CALVO MD Jan 15, 2025 13:12
--- NOTE | 2025-01-15 21:10 | DVHINCON2 ---
Family History: Cardiovascular disease G8 MOTHER G8 FATHER Diabetes mellitus G8 MOTHER Allergies: Coded Allergies: Codeine (Verified Allergy, Unknown, 06/30/21) Penicillins (Verified Allergy, Unknown, 06/30/21) Sulfa Antibiotics (Verified Allergy, Unknown, 06/30/21) Home Meds Active Scripts Metoprolol Tartrate (LOPRESSOR TABLET) 50 Mg Tb, 50 MG PO BID for 30 Days, #60 TAB Prov:UMESH KILPATRICK MD 01/13/25 Aspirin (Aspir-Low) 81 Mg Tab, 81 MG PO DAILY for 30 Days, #30 TAB Prov:UMESH KILPATRICK MD 01/13/25 Atorvastatin Calcium (ATORVASTATIN CALCIUM) 20 Mg Tab, 20 MG PO HS for 30 Days, #30 TAB Prov:UMESH KILPATRICK MD 01/13/25 Sulfamethoxazole W/Trimethopri (Bactrim Ds Tablet) 1 Tab Tb, 1 TAB PO BID for 7 Days, #14 TAB Prov:SOPHIE MARTIN NP 12/21/24 Reported Medications Bumetanide (Bumetanide) 2 Mg Tab, 1 TAB PO DAILY for 90 Days, #90 12/19/24 Losartan Potassium (Losartan Potassium) 100 Mg Tab, 1 TAB PO DAILY for 90 Days, #90 12/19/24 Tamsulosin Hcl (Tamsulosin Hcl) 0.4 Mg Cap, 1 TAB PO DAILY for 90 Days, #90 12/19/24 Potassium Chloride (Potassium Chloride ER) 20 Meq Tab, 1 TAB PO BID for 30 Days, #60 12/19/24 Spironolactone (Spironolactone) 25 Mg Tab, 1 TAB PO DAILY for 30 Days, #30 12/19/24 Hydralazine HCl (Hydralazine HCl) 25 Mg Tab, 1 TAB PO TID for 30 Days, #90 12/19/24 Metoprolol Tartrate (Lopressor) 25 Mg Tb, 1 TAB PO BID for 30 Days, #60 12/19/24 Dolutegravir Sodium-Lamivudine (Dovato 50-300 mg) 1 Tab Tab, 1 TAB PO DAILY for 30 Days, #30 12/19/24 Rosuvastatin Calcium (Rosuvastatin Calcium) 40 Mg Tab, 1 TAB PO DAILY for 90 Days, #90 12/19/24 Vital Signs Vital Signs Date Time Temp Pulse Resp B/P (MAP) Pulse Ox O2 Delivery O2 Flow Rate FiO2 11/4/25 17:06 98.0 63 18 135/83 (100) 100 98.0 01/15/25 10:00 Nasal Cannula* 3 32 Labs/Diagnostic Data Labs Test 01/15/25 04:45 01/13/25 04:40 01/12/25 04:39 01/10/25 01:43 Range/Units White Blood Count 8.6 4.4-10.8 10^3/uL Red Blood Count 3.89 L 4.5-5.90 10^6/uL Hemoglobin 10.3 L 13.5-17.5 g/dL Hematocrit 31.5 L 41.0-53.0 % Mean Corpuscular Volume 81.1 80.0-100.0 fL Mean Corpuscular Hemoglobin 26.4 L 28.0-32.0 pg Mean Corpuscular Hemoglobin Concent 32.5 32.0-36.0 g/dL Red Cell Distribution Width 17.9 H 11.8-14.3 % Platelet Count 349 140-450 10^3/uL Mean Platelet Volume 8.0 6.9-10.8 fL Neutrophils (%) (Auto) 37.0-80.0 % Lymphocytes (%) (Auto) 10.0-50.0 % Monocytes (%) (Auto) 0.0-12.0 % Basophils (%) (Auto) 0.0-2.0 % Neutrophils # (Auto) 1.6-8.6 10 ^3/uL Lymphocytes # (Auto) 0.4-5.4 10 ^3/uL Monocytes # (Auto) 0-1.3 10 ^3/uL Differential Total Cells Counted 100.0 100 Neutrophils % (Manual) 67 37.0-80.0 Band Neutrophils % (Manual) 2 Lymphocytes % (Manual) 17 10.0-50.0 Monocytes % (Manual) 7 0-12 Eosinophils % (Manual) 3 0-7 Basophils % (Manual) 0 0.0-2.0 Metamyelocytes % (manual) 0 Myelocytes % (Manual) 4 Promyelocytes % (Manual) 0 Blast Cells % (Manual) 0 Reactive Lymphocytes 0 Platelet Estimate Adequate Large Platelets Few Anisocytosis (manual) Slight Stomatocytes Few Sodium Level 143 136-145 mmol/L Potassium Level 3.1 L 3.5-5.1 mmol/L Chloride Level 100 98-107 mmol/L Carbon Dioxide Level 33 H 20-31 mmol/L Anion Gap 10 5-15 Blood Urea Nitrogen 35 H 9-23 mg/dL Creatinine 2.96 H 0.700-1.30 mg/dL Glomerular Filtration Rate Calc 26 >90 mL/min BUN/Creatinine Ratio 11.8 10.0-20.0 Serum Glucose 55 L 74-106 mg/dL Calcium Level 8.9 8.7-10.4 mg/dL Total Bilirubin 0.3 0.2-1.0 mg/dL Aspartate Amino Transferase (AST) 19 13-40 U/L Alanine Aminotransferase (ALT) 13 7-40 U/L Alkaline Phosphatase 58 46-116 U/L Total Protein 8.0 5.7-8.2 g/dL Albumin 3.7 3.2-4.8 g/dL Eosinophils (%) (Auto) 3.6 0.0-7.0 % Eosinophils # (Auto) 0.4 0-0.8 10 ^3/uL Basophils # (Auto) 0 0-0.2 10 ^3/uL Nucleated Red Blood Cells 0.0 % Hypochromasia (manual) Slight Creatine Kinase 1022 H 46-171 U/L Test 01/09/25 21:18 01/09/25 13:25 01/09/25 04:53 01/08/25 11:30 Range/Units POC Glucose 118 H 70-106 mg/dl Anti-Nuclear Antibody Comment Comment . Cytoplasmic ANCA (c-ANCA) Antibody <1:20 Neg:<1:20 titer Anti-Proteinase 3 (c-ANCA) <0.2 0.0-0.9 units Atypical p-ANCA <1:20 Neg:<1:20 titer Perinuclear ANCA (p-ANCA) Antibody <1:20 Neg:<1:20 titer Myeloperoxidase Antibody <0.2 0.0-0.9 units SIENA-1 Antibody <0.2 0.0-0.9 AI SS-A/Ro Antibody <0.2 0.0-0.9 AI SS-B/La Antibody <0.2 0.0-0.9 AI Sm Antibody <0.2 0.0-0.9 AI LAB ASSISTANT Antibody 0.6 0.0-0.9 AI Scl-70 (Scleroderma) Antibody <0.2 0.0-0.9 AI Anti-Double Strand DNA Antibody 3 0-9 IU/mL Chromatin Antibody <0.2 0.0-0.9 AI Centromere B Antibody <0.2 0.0-0.9 AI Complement C3 261 H 82-167 mg/dL Complement C4 32 12-38 mg/dL Hepatitis A IgM Antibody Negative Hepatitis B Surface Antigen Negative Negative Hepatitis B Core IgM Antibody Negative Negative Hepatitis C Antibody Negative Negative Parathyroid Hormone (Intact) 118.5 H 18.4-80.1 pg/mL Urine Color Yellow Yellow Urine Clarity Turbid H Clear Urine pH 5.5 5.0-9.0 Urine Specific [place] 1.015 1.001-1.035 Urine Protein 1+ H Negative Urine Ketones Negative Negative Urine Blood 3+ H Negative /uL Urine Nitrite Negative Negative Urine Bilirubin Negative Negative Urine Urobilinogen Normal Negative mg/dL Urine Leukocyte Esterase Negative Negative /uL Urine RBC 56 0 - 3 /hpf Urine Microscopic WBC 10 H 0-3 /HPF Urine Squamous Epithelial Cells Few <5 /hpf Urine Bacteria Few H None Seen /hpf Urine Yeast (Budding) Occasional None Seen /hpf Urine Creatinine 120.02 30.0-125.0 mg/dL Urine Protein/Creatinine Ratio 1.06 Urine Sodium 49 40-220 mmol/L Urine Potassium 40 12-62 mmol/L Urine Glucose Normal Normal mg/dL Urine Total Protein 127.2 H 1-14 mg/dL Test 01/08/25 04:51 01/07/25 14:44 01/06/25 18:16 Range/Units Phosphorus Level 3.6 2.4-5.1 mg/dL Magnesium Level 1.8 1.6-2.6 mg/dL Absolute Neutrophils (auto) 11.6 H 1.4-7.0 x10E3/uL Absolute Lymphocytes (auto) 1.5 0.7-3.1 x10E3/uL Absolute Monocytes (auto) 1.4 H 0.1-0.9 x10E3/uL Absolute Eosinophils (auto) 0.3 0.0-0.4 x10E3/uL Absolute Basophils (auto) 0.0 0.0-0.2 x10E3/uL Immature Granulocytes % 0 Not Estab. % Immature Granulocytes # 0 0.0-0.1 x10E3/uL Immature Blood Cells . Hematology Comments . Percent CD4 Cells 16.5 L 30.8-58.5 % Absolute CD4 Count 248 L 359-1519 /uL T-Lymphocyte CD4/CD8 Ratio 0.35 L 0.92-3.72 Percent CD8 Cells 47.7 H 12.0-35.5 % Absolute CD8 Count 716 109-897 /uL HIV-1 RNA (PCR) 40 . copies/mL HIV-1 RNA (PCR) log10 Value 1.602 . Prothrombin Time 11.5 9.3-11.8 sec Prothrombin Time INR 1.09 0.9-1.15 Activated Partial Thromboplast Time 31.9 24.5-34.5 SEC B-Type Natriuretic Peptide 11.38 0-100 pg/mL Lipase 27 12-53 U/L Microbiology Date/Time Source Procedure Growth Status 01/08/25 14:45 Leg Right Gram Stain - Final Complete 01/08/25 14:45 Wound Culture - Final Methicillin Resistant S.aureus Stenotrophomonas maltophilia Complete SEEMA RUANO MD Jan 15, 2025 21:10
[2025-01-15] MEDS: POTASSIUM CHL 20 Meq TABLET PO ONE (23:21)
[2025-01-16] VITALS (9 sets, daily range): BP systolic 131–147; BP diastolic 76–93; PULSE 60–79; RESP 17–20; TEMP 97.1–97.9; O2SAT 91–100
[2025-01-16 05:23] LABS: Hematocrit 32.4 % (41.0-53.0); Hemoglobin 10.4 g/dL (13.5-17.5); Mean Corpuscular Hemoglobin 26.2 pg (28.0-32.0); Mean Corpuscular Volume 81.2 fL (80.0-100.0); Nucleated Red Blood Cells % 0.0 %
[2025-01-16 05:30] LABS: Alanine Aminotransferase 13 U/L (7-40); Albumin 3.7 g/dL (3.2-4.8); Alkaline Phosphatase 54 U/L (46-116); Anion Gap 8 (5-15); BUN/Creatinine Ratio 11.8 (10.0-20.0); Bilirubin, Total 0.3 mg/dL (0.2-1.0); Blood Urea Nitrogen 35 mg/dL (9-23); Calcium 9.1 mg/dL (8.7-10.4); Carbon Dioxide 34 mmol/L (20-31); Chloride 100 mmol/L (98-107); Glucose 88 mg/dL (74-106); Potassium 3.4 mmol/L (3.5-5.1); Sodium 142 mmol/L (136-145); Total Protein 8.0 g/dL (5.7-8.2)
[2025-01-16] MEDS: POTASSIUM EFFERVESENT TAB 25 MEQ PO ONE (10:49)
--- NOTE | 2025-01-16 10:59 | DVHPN2 ---
Progress Note Date Seen: Jan 16, 2025 Resident Creating Document: SHAKIRA ALMANZAR RESDIENT Medical Necessity Reason Pt with a Central, PICC or Fol: No Subjective Review of Systems Patient seen and examined at bedside, patient is feeling better since admission Other Systems: Patient seen and examined by myself today in follow-up with the medicine resident, I agree with the assessment and plan Objective vital signs Vital Sign Date Time Temp Pulse Resp B/P (MAP) Pulse Ox O2 Delivery O2 Flow Rate FiO2 01/16/25 10:50 64 137/76 01/16/25 09:00 97.8 20 95 97.8 01/15/25 20:30 Nasal Cannula* 4 36 Total Intake and Output 01/15/25 01/15/25 01/16/25 15:00 23:00 07:00 Intake Total 390 ml 700 ml 200 ml Output Total 700 ml 1750 ml Balance 390 ml 0 ml -1550 ml medications Current Medications Medications Dose Ordered Sig/Cookie Route Start Time Stop Time Status Last Admin Dose Admin Atorvastatin Calcium 20 mg HS PO 01/07/25 22:00 01/15/25 22:18 20 MG Metoprolol Tartrate 50 mg BID PO 01/07/25 10:00 01/16/25 10:50 50 MG Patient Own Medication 50 mg DAILY PO 01/07/25 10:00 01/16/25 10:49 50 MG Sodium Chloride 10 ml Q8HR IV 01/07/25 06:00 01/16/25 06:08 10 ML Acetaminophen 650 mg Q6HP PRN PO 01/06/25 22:15 01/07/25 23:08 650 MG Hydralazine HCl 10 mg Q8HR PO 01/07/25 22:00 01/16/25 06:08 10 MG Aspirin 81 mg DAILY PO 01/08/25 10:00 01/16/25 10:50 81 MG Oxycodone/ Acetaminophen 1 tab Q6HP PRN PO 01/08/25 12:45 01/15/25 11:24 1 TAB Enoxaparin Sodium 150 mg Q12HR SC 01/08/25 22:00 01/16/25 10:50 150 MG Daptomycin 500 mg/ Sodium Chloride 50 ml @ 100 mls/hr DAILY IV 01/09/25 21:00 01/16/25 10:48 100 MLS/HR Bumetanide 1 mg BID IV 01/10/25 13:45 01/16/25 10:48 1 MG Levofloxacin/ Dextrose 100 ml @ 100 mls/hr DAILY@2300 IV 01/10/25 23:00 01/15/25 22:19 100 MLS/HR Examination General Appearance: Alert, Oriented X3, Cooperative, lying on the bed, morbid obesity HEENT: Atraumatic, PERRLA, EOMI, Mucous membrane moist/pink Respiratory: Bilaterally decreased breath sounds Cardiovascular: Regular rate, Normal S1, Normal S2, No murmurs, no chest wall tenderness Abdominal: Normal bowel sounds, Soft, No tenderness, No hepatospenomegaly, No masses Extremities: No clubbing, No cyanosis, No edema, Normal pulses, No tenderness/swelling Skin: Bilateral grade 3-4 pedal edema with chronic skin changes possibly due to stasis dermatitis, amputated left foot fingers Neuro: Normal gait, Normal speech, Strength at 5/5 X4 ext, Normal tone, Sensation intact, Cranial nerves 3-12 NL, Reflexes 2+ Psych/Mental Status: Mental status NL, Mood NL laboratory and microbiology Laboratory Tests 01/16/25 04:37 Test 01/16/25 04:37 Range/Units Serum Glucose 88 74-106 mg/dL Microbiology Date/Time Source Procedure Growth Status 01/08/25 14:45 Leg Right Gram Stain - Final Complete 01/08/25 14:45 Wound Culture - Final Methicillin Resistant S.aureus Stenotrophomonas maltophilia Complete Labs and/or images reviewed: Labs reviewed by me, Image(s) reviewed by me Problem List/Assessment/Plan Problem List/Assessment/Plan This is a 44-year-old morbidly obese gentleman with past medical history of HIV, chronic venous stasis, DVT, hypertension, dyslipidemia, DVT, RV failure (cor pulmonale), obstructive sleep apnea, came to the hospital due to blood in urine and bilateral lower limb swelling. 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 Cameron) * Kidney Function is improving * Consulted IR for renal biopsy, has been declined kidney biopsy due to high risk of bleeding& morbidity * Bumex 1 mg b.i.d. * Strict I&Os * Renal diet * We will follow up with the patient Thank you for giving us the opportunity to take area of the patient. Please call back if you have any questions/concerns. Plan discussed with: Patient, Other (RN) Dietary Evaluation Review Comments: Nutrition Recommendation: 1) Consider NCS + cardiac diet 2) Bryce 1 pk BID 3) Refer Lock[employer]ch Sleeve [employer]ter for diabetes education (Pre-DM) 4) Monitor PO intake, lab values, weight trend, and I/O Expected Outcomes/Goals: Wound to improve Fu 3-5 days SHAKIRA ALMANZAR Jan 16, 2025 10:59 АННА CAMERON MD Jan 16, 2025 11:40
--- NOTE | 2025-01-16 12:15 | DVHPN2 ---
Subjective in bed resting Reviewed: H&P Changes from previous H/P or p: No Changes Eyes: No Pain, No Vision change, No Conjunctivae inflammation, No Eyelid inflammation, No Other, No Redness ENT: No Ear pain, No Ear discharge, No Nose pain, No Nose discharge, No Nose congestion, No Mouth pain, No Mouth swelling, No Throat pain, No Throat swelling, No Other Cardiovascular: No Chest Pain, No Palpitations, No Orthopnea, No Paroxysmal Noc. Dyspnea, No Edema, No Lt Headedness, No Other Respiratory: No Cough, No Dry, No Shortness of breath, No SOB with excertion, No Wheezing, No Hemoptysis, No Pleuritic Pain, No Sputum, No Other Gastrointestinal: No Nausea, No Vomiting, No Abdominal Pain, No Diarrhea, No Constipation, No Melena, No Hematochezia, No Other Genitourinary: No Dysuria, No Frequency, No Incontinence; Hematuria; No Retention, No Other Musculoskeletal: other (Left foot amputation, Joint pain, joint swelling.); No neck pain, No shoulder pain, No arm pain, No back pain, No hand pain, No leg pain, No foot pain Skin: No Rash, No Lesions, No Jaundice, No Bruising, No Other Objective Vitals Vital Signs Date Time Temp Pulse Resp B/P (MAP) Pulse Ox O2 Delivery O2 Flow Rate FiO2 01/16/25 10:50 64 137/76 01/16/25 09:00 97.8 20 95 97.8 01/15/25 20:30 Nasal Cannula* 4 36 Intake/Output Intake and Output 01/16/25 05:00 Intake Total 1290 ml Output Total 2000 ml Balance -710 ml Intake Oral 1240 ml IV Total 50 ml Output Urine Total 2000 ml General Appearance: Alert, Oriented X3 HEENT: Atraumatic Lungs: Clear to auscultation Cardiovascular: Regular rate, Normal S1, Normal S2 Medications Current Medications Medications Dose Ordered Sig/Cookie Route Start Time Stop Time Status Last Admin Dose Admin Atorvastatin Calcium 20 mg HS PO 01/07/25 22:00 01/15/25 22:18 20 MG Metoprolol Tartrate 50 mg BID PO 01/07/25 10:00 01/16/25 10:50 50 MG Patient Own Medication 50 mg DAILY PO 01/07/25 10:00 01/16/25 10:49 50 MG Sodium Chloride 10 ml Q8HR IV 10/27/25 06:00 01/16/25 06:08 10 ML Acetaminophen 650 mg Q6HP PRN PO 01/06/25 22:15 01/07/25 23:08 650 MG Hydralazine HCl 10 mg Q8HR PO 01/07/25 22:00 01/16/25 06:08 10 MG Aspirin 81 mg DAILY PO 01/08/25 10:00 01/16/25 10:50 81 MG Oxycodone/ Acetaminophen 1 tab Q6HP PRN PO 01/08/25 12:45 01/15/25 11:24 1 TAB Enoxaparin Sodium 150 mg Q12HR SC 01/08/25 22:00 01/16/25 10:50 150 MG Daptomycin 500 mg/ Sodium Chloride 50 ml @ 100 mls/hr DAILY IV 01/09/25 21:00 01/16/25 10:48 100 MLS/HR Bumetanide 1 mg BID IV 01/10/25 13:45 01/16/25 10:48 1 MG Levofloxacin/ Dextrose 100 ml @ 100 mls/hr DAILY@2300 IV 01/10/25 23:00 01/15/25 22:19 100 MLS/HR Laboratory Results Laboratory Tests 01/16/25 04:37 Chemistry Test 01/16/25 04:37 Albumin 3.7 g/dL (3.2-4.8) Calcium Level 9.1 mg/dL (8.7-10.4) Magnesium Level 1.9 mg/dL (1.6-2.6) Total Protein 8.0 g/dL (5.7-8.2) LFT Test 01/16/25 04:37 Alanine Aminotransferase (ALT) 13 U/L (7-40) Alkaline Phosphatase 54 U/L (46-116) Aspartate Amino Transferase (AST) 19 U/L (13-40) Total Bilirubin 0.3 mg/dL (0.2-1.0) Urinalysis Test 01/08/25 11:30 Urine Color Yellow (Yellow) Urine Clarity Turbid (Clear) H Urine pH 5.5 (5.0-9.0) Urine Specific [place] 1.015 (1.001-1.035) Urine Protein 1+ (Negative) H Urine Ketones Negative (Negative) Urine Blood 3+ /uL (Negative) H Urine Nitrite Negative (Negative) Urine Bilirubin Negative (Negative) Urine Urobilinogen Normal mg/dL (Negative) Urine Leukocyte Esterase Negative /uL (Negative) Urine RBC 56 /hpf (0 - 3) Urine Microscopic WBC 10 /HPF (0-3) H Urine Squamous Epithelial Cells Few /hpf (<5) Urine Bacteria Few /hpf (None Seen) H Urine Yeast (Budding) Occasional /hpf (None Urine Creatinine 120.02 mg/dL (30.0-125.0) Urine Protein/Creatinine Ratio 1.06 Urine Sodium 49 mmol/L (40-220) Urine Potassium 40 mmol/L (12-62) Urine Glucose Normal mg/dL (Normal) Urine Total Protein 127.2 mg/dL (1-14) H Microbiology Microbiology Date/Time Source Procedure Growth Status 01/08/25 14:45 Leg Right Gram Stain - Final Complete 01/08/25 14:45 Wound Culture - Final Methicillin Resistant S.aureus Stenotrophomonas maltophilia Complete Assessment/Plan Assessment/Plan gross hematuria GONZÁLEZ ATN severe RV failure HFpEF HIV acute on chronic diastolic HF morbid obesity IVONNE HLD preDM chronic pain chronic venous stasis DVT LLE on pradaxa celulitis? 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 on asa iga nephropathy? dapto and levaquin bipap at night bumex, aldactone resume home meds resume dovato pradaxa to lovenox CD4 200s pain management o2 maintain spo2 >92 Renal function slowly improving blood culture strict io Follow up with nephrology rec urinary if knee biopsy. Patient will need Nephrology outpatient Consult ID for multiple drug resistant bacteria in wounds diet cardiac dvt ppx on lovenox Plan discussed with: Patient Date of Service: Jan 16, 2025 Billing Provider: LATISHA CALVO MD Common Visit Codes: [id number] INP/OBS CARE(HIGH) LATISHA CALVO MD Jan 16, 2025 12:15
[2025-01-17] VITALS (8 sets, daily range): BP systolic 135–155; BP diastolic 70–95; PULSE 63–71; RESP 17–20; TEMP 97.4–98.2; O2SAT 97–100
[2025-01-17 05:28] LABS: Nucleated Red Blood Cells % 0.1 %
[2025-01-17 05:32] LABS: Hematocrit 31.8 % (41.0-53.0); Hemoglobin 10.3 g/dL (13.5-17.5); Mean Corpuscular Hemoglobin 26.1 pg (28.0-32.0); Mean Corpuscular Volume 80.5 fL (80.0-100.0)
[2025-01-17 05:44] LABS: Alanine Aminotransferase 12 U/L (7-40); Albumin 3.6 g/dL (3.2-4.8); Alkaline Phosphatase 53 U/L (46-116); Anion Gap 9 (5-15); BUN/Creatinine Ratio 11.4 (10.0-20.0); Calcium 9.0 mg/dL (8.7-10.4); Chloride 101 mmol/L (98-107); Glucose 90 mg/dL (74-106); Sodium 142 mmol/L (136-145); Total Protein 7.9 g/dL (5.7-8.2)
[2025-01-17 05:45] LABS: Bilirubin, Total 0.4 mg/dL (0.2-1.0); Creatine Kinase IFCC 133 U/L (46-171)
[2025-01-17 05:57] LABS: Blood Urea Nitrogen 32 mg/dL (9-23); Carbon Dioxide 32 mmol/L (20-31); Potassium 3.0 mmol/L (3.5-5.1)
[2025-01-17] MEDS ORDERED: ERTAPENEM SOD INJ 1 GM in SODIUM CHL 0.9% 50 ML IV ONE (08:45)
--- NOTE | 2025-01-17 08:53 | DVHPN2 ---
Progress Note Date Seen: Jan 17, 2025 Resident Creating Document: SHAKIRA ALMANZAR RESDIENT Medical Necessity Reason Pt with a Central, PICC or Fol: No Subjective Review of Systems Patient seen and examined at bedside, patient is feeling better since admission Other Systems: Patient seen and examined by myself today on rounds with the medicine resident, I agree with the assessment and plan Objective vital signs Vital Sign Date Time Temp Pulse Resp B/P (MAP) Pulse Ox O2 Delivery O2 Flow Rate FiO2 01/17/25 05:28 140/72 01/17/25 05:00 97.7 68 17 98 97.7 01/16/25 20:00 Nasal Cannula* 4 36 Total Intake and Output 01/16/25 01/16/25 01/17/25 15:00 23:00 07:00 Intake Total 762 ml 550 ml Output Total 350 ml 900 ml Balance 412 ml -350 ml medications Current Medications Medications Dose Ordered Sig/Cookie Route Start Time Stop Time Status Last Admin Dose Admin Atorvastatin Calcium 20 mg HS PO 01/07/25 22:00 01/16/25 21:57 20 MG Metoprolol Tartrate 50 mg BID PO 01/07/25 10:00 01/16/25 21:58 50 MG Patient Own Medication 50 mg DAILY PO 01/07/25 10:00 01/16/25 10:49 50 MG Sodium Chloride 10 ml Q8HR IV 01/07/25 06:00 01/17/25 05:28 10 ML Acetaminophen 650 mg Q6HP PRN PO 01/06/25 22:15 01/07/25 23:08 650 MG Hydralazine HCl 10 mg Q8HR PO 01/07/25 22:00 01/17/25 05:28 10 MG Aspirin 81 mg DAILY PO 01/08/25 10:00 01/16/25 10:50 81 MG Oxycodone/ Acetaminophen 1 tab Q6HP PRN PO 01/08/25 12:45 01/15/25 11:24 1 TAB Enoxaparin Sodium 150 mg Q12HR SC 01/08/25 22:00 01/16/25 21:58 150 MG Bumetanide 1 mg BID IV 01/10/25 13:45 01/16/25 21:56 1 MG Levofloxacin 750 mg DAILY PO 01/17/25 10:00 UNV Examination General Appearance: Alert, Oriented X3, Cooperative, lying on the bed, morbid obesity HEENT: Atraumatic, PERRLA, EOMI, Mucous membrane moist/pink Respiratory: Bilaterally decreased breath sounds Cardiovascular: Regular rate, Normal S1, Normal S2, No murmurs, no chest wall tenderness Abdominal: Normal bowel sounds, Soft, No tenderness, No hepatospenomegaly, No masses Extremities: No clubbing, No cyanosis, No edema, Normal pulses, No tenderness/swelling Skin: Bilateral grade 3-4 pedal edema with chronic skin changes possibly due to stasis dermatitis, amputated left foot fingers Neuro: Normal gait, Normal speech, Strength at 5/5 X4 ext, Normal tone, Sensation intact, Cranial nerves 3-12 NL, Reflexes 2+ Psych/Mental Status: Mental status NL, Mood NL Examination: LUNGS:Normal, CVS:Normal, MSK:Abnormal laboratory and microbiology Laboratory Tests 01/17/25 04:47 Test 01/17/25 04:47 Range/Units Serum Glucose 90 74-106 mg/dL Microbiology Date/Time Source Procedure Growth Status 01/08/25 14:45 Leg Right Gram Stain - Final Complete 01/08/25 14:45 Wound Culture - Final Methicillin Resistant S.aureus Stenotrophomonas maltophilia Complete Labs and/or images reviewed: Labs reviewed by me, Image(s) reviewed by me Problem List/Assessment/Plan Problem List/Assessment/Plan This is a 44-year-old morbidly obese gentleman with past medical history of HIV, chronic venous stasis, DVT, hypertension, dyslipidemia, DVT, RV failure (cor pulmonale), obstructive sleep apnea, came to the hospital due to blood in urine and bilateral lower limb swelling. 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 Cameron) * Kidney Function slowly is improving * Increased urine output * Consulted IR for renal biopsy, has been declined kidney biopsy due to high risk of bleeding& morbidity * Bumex 1 mg b.i.d. * Strict I&Os * Renal diet * We will follow up with the patient Thank you for giving us the opportunity to take area of the patient. Please call back if you have any questions/concerns. Plan discussed with: Patient, Other (RN) Dietary Evaluation Review Comments: Nutrition Recommendation: 1) Consider NCS + cardiac diet 2) Bryce 1 pk BID 3) Refer Channel Installer for diabetes education (Pre-DM) 4) Monitor PO intake, lab values, weight trend, and I/O Expected Outcomes/Goals: Wound to improve Fu 3-5 days SHAKIRA ALMANZAR Jan 17, 2025 08:53 АННА CAMERON MD Jan 17, 2025 14:10
[2025-01-17] MEDS ORDERED: LINE1TAB6 PO (08:54)
[2025-01-17] MEDS ORDERED: LEVO250T58 PO (08:54)
--- NOTE | 2025-01-17 09:39 | DVHPN2 ---
Subjective in bed resting Reviewed: H&P Changes from previous H/P or p: No Changes Eyes: No Pain, No Vision change, No Conjunctivae inflammation, No Eyelid inflammation, No Other, No Redness ENT: No Ear pain, No Ear discharge, No Nose pain, No Nose discharge, No Nose congestion, No Mouth pain, No Mouth swelling, No Throat pain, No Throat swelling, No Other Cardiovascular: No Chest Pain, No Palpitations, No Orthopnea, No Paroxysmal Noc. Dyspnea, No Edema, No Lt Headedness, No Other Respiratory: No Cough, No Dry, No Shortness of breath, No SOB with excertion, No Wheezing, No Hemoptysis, No Pleuritic Pain, No Sputum, No Other Gastrointestinal: No Nausea, No Vomiting, No Abdominal Pain, No Diarrhea, No Constipation, No Melena, No Hematochezia, No Other Genitourinary: No Dysuria, No Frequency, No Incontinence; Hematuria; No Retention, No Other Musculoskeletal: other (Left foot amputation, Joint pain, joint swelling.); No neck pain, No shoulder pain, No arm pain, No back pain, No hand pain, No leg pain, No foot pain Skin: No Rash, No Lesions, No Jaundice, No Bruising, No Other Objective Vitals Vital Signs Date Time Temp Pulse Resp B/P (MAP) Pulse Ox O2 Delivery O2 Flow Rate FiO2 01/17/25 05:28 140/72 01/17/25 05:00 97.7 68 17 98 97.7 01/16/25 20:00 Nasal Cannula* 4 36 Intake/Output Intake and Output 01/17/25 07:00 Intake Total 1312 ml Output Total 1250 ml Balance 62 ml Intake Oral 1312 ml Output Urine Total 1250 ml General Appearance: Alert, Oriented X3 HEENT: Atraumatic Lungs: Clear to auscultation Cardiovascular: Regular rate, Normal S1, Normal S2 Medications Current Medications Medications Dose Ordered Sig/Cookie Route Start Time Stop Time Status Last Admin Dose Admin Atorvastatin Calcium 20 mg HS PO 01/07/25 22:00 01/16/25 21:57 20 MG Metoprolol Tartrate 50 mg BID PO 01/07/25 10:00 01/16/25 21:58 50 MG Patient Own Medication 50 mg DAILY PO 01/07/25 10:00 01/16/25 10:49 50 MG Sodium Chloride 10 ml Q8HR IV 01/07/25 06:00 01/17/25 05:28 10 ML Acetaminophen 650 mg Q6HP PRN PO 01/06/25 22:15 01/07/25 23:08 650 MG Hydralazine HCl 10 mg Q8HR PO 01/07/25 22:00 01/17/25 05:28 10 MG Aspirin 81 mg DAILY PO 01/08/25 10:00 01/16/25 10:50 81 MG Oxycodone/ Acetaminophen 1 tab Q6HP PRN PO 01/08/25 12:45 01/15/25 11:24 1 TAB Enoxaparin Sodium 150 mg Q12HR SC 01/08/25 22:00 01/16/25 21:58 150 MG Bumetanide 1 mg BID IV 01/10/25 13:45 01/16/25 21:56 1 MG Levofloxacin 750 mg DAILY PO 01/17/25 10:00 Linezolid 600 mg BID PO 01/17/25 10:00 Laboratory Results Laboratory Tests 01/17/25 04:47 Chemistry Test 01/17/25 04:47 Albumin 3.6 g/dL (3.2-4.8) Calcium Level 9.0 mg/dL (8.7-10.4) Total Protein 7.9 g/dL (5.7-8.2) LFT Test 01/17/25 04:47 Alanine Aminotransferase (ALT) 12 U/L (7-40) Alkaline Phosphatase 53 U/L (46-116) Aspartate Amino Transferase (AST) 17 U/L (13-40) Total Bilirubin 0.4 mg/dL (0.2-1.0) Urinalysis Test 01/08/25 11:30 Urine Color Yellow (Yellow) Urine Clarity Turbid (Clear) H Urine pH 5.5 (5.0-9.0) Urine Specific [place] 1.015 (1.001-1.035) Urine Protein 1+ (Negative) H Urine Ketones Negative (Negative) Urine Blood 3+ /uL (Negative) H Urine Nitrite Negative (Negative) Urine Bilirubin Negative (Negative) Urine Urobilinogen Normal mg/dL (Negative) Urine Leukocyte Esterase Negative /uL (Negative) Urine RBC 56 /hpf (0 - 3) Urine Microscopic WBC 10 /HPF (0-3) H Urine Squamous Epithelial Cells Few /hpf (<5) Urine Bacteria Few /hpf (None Seen) H Urine Yeast (Budding) Occasional /hpf (None Urine Creatinine 120.02 mg/dL (30.0-125.0) Urine Protein/Creatinine Ratio 1.06 Urine Sodium 49 mmol/L (40-220) Urine Potassium 40 mmol/L (12-62) Urine Glucose Normal mg/dL (Normal) Urine Total Protein 127.2 mg/dL (1-14) H Microbiology Microbiology Date/Time Source Procedure Growth Status 01/08/25 14:45 Leg Right Gram Stain - Final Complete 01/08/25 14:45 Wound Culture - Final Methicillin Resistant S.aureus Stenotrophomonas maltophilia Complete Assessment/Plan Assessment/Plan gross hematuria GONZÁLEZ ATN severe RV failure HFpEF HIV acute on chronic diastolic HF morbid obesity IVONNE HLD preDM chronic pain chronic venous stasis DVT LLE on pradaxa celulitis? 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 on asa iga nephropathy? dapto and levaquin bipap at night bumex, aldactone resume home meds resume dovato pradaxa to lovenox CD4 200s pain management o2 maintain spo2 >92 Renal function slowly improving blood culture strict io Follow up with nephrology rec urinary if knee biopsy. Patient will need Nephrology outpatient Consult ID for multiple drug resistant bacteria in wounds>PICC line and IV abx for 4 weeks with Follow up IV abx ertapenem diet cardiac dvt ppx on lovenox Dispo: Needs midline and IV abx arrangements before discharge, next 1-2 days Plan discussed with: Patient My Orders Orders - LATISHA CALVO MD Procedure Category Date Status Time Cleanse Wound With ROMI 01/16/25 In Process Wound Clean 16:56 Date of Service: Jan 17, 2025 Billing Provider: LATISHA CALVO MD Common Visit Codes: [id number] INP/OBS CARE(HIGH) LATISHA CALVO MD Jan 17, 2025 09:39
[2025-01-17] MEDS: LINEZOLID 600MG TABLET PO SCH (10:13)
[2025-01-17] MEDS: levoFLOXacin 250 MG TAB PO SCH (10:43)
[2025-01-17] MEDS: POTASSIUM EFFERVESENT TAB 25 MEQ PO ONE (13:31)
[2025-01-17] MEDS: POTASSIUM CHLORIDE 60 MEQ, LIDOCAINE 1% (LOCAL ANESTH.) 6 ML in SODIUM CHL 0.9% 500 ML IV ONE (13:32)
[2025-01-17] MEDS: BUMETANIDE 1mg/4ml VIAL (0.25mg/ml) IV SCH (18:18)
[2025-01-17] MEDS: MAGNESIUM SULFATE 1GM/100ML 100 ML IV ONE (18:23)
[2025-01-18] VITALS (7 sets, daily range): BP systolic 136–144; BP diastolic 78–99; PULSE 61–73; RESP 17–18; TEMP 97.6–98.6; O2SAT 92–98
--- NOTE | 2025-01-18 11:00 | DVHPN2 ---
Progress Note Date Seen: Jan 18, 2025 Medical Necessity Reason Pt with a Central, PICC or Fol: No Subjective Patient reports: No new complaints Other Systems: Patient seen and examined by myself today in follow-up Objective vital signs Vital Sign Date Time Temp Pulse Resp B/P (MAP) Pulse Ox O2 Delivery O2 Flow Rate FiO2 01/18/25 09:23 73 144/85 01/18/25 09:00 97.6 18 97 97.6 01/17/25 20:00 Nasal Cannula* 4 36 Total Intake and Output 01/17/25 01/17/25 01/18/25 15:00 23:00 07:00 Intake Total 800 ml 410 ml Output Total 675 ml 625 ml Balance 125 ml -215 ml medications Current Medications Medications Dose Ordered Sig/Cookie Route Start Time Stop Time Status Last Admin Dose Admin Atorvastatin Calcium 20 mg HS PO 01/07/25 22:00 01/17/25 21:02 20 MG Metoprolol Tartrate 50 mg BID PO 01/07/25 10:00 01/18/25 09:23 50 MG Patient Own Medication 50 mg DAILY PO 01/07/25 10:00 01/18/25 09:24 50 MG Sodium Chloride 10 ml Q8HR IV 01/07/25 06:00 01/18/25 05:20 10 ML Acetaminophen 650 mg Q6HP PRN PO 01/06/25 22:15 01/07/25 23:08 650 MG Hydralazine HCl 10 mg Q8HR PO 01/07/25 22:00 01/18/25 05:21 10 MG Aspirin 81 mg DAILY PO 01/08/25 10:00 01/18/25 09:23 81 MG Enoxaparin Sodium 150 mg Q12HR SC 01/08/25 22:00 01/18/25 09:24 150 MG Levofloxacin 750 mg DAILY PO 01/17/25 10:00 01/18/25 09:23 750 MG Linezolid 600 mg BID PO 01/17/25 10:00 01/18/25 09:23 600 MG Bumetanide 1 mg BIDD IV 01/17/25 18:00 01/18/25 05:20 1 MG Examination: LUNGS:Normal, CVS:Normal, MSK:Abnormal laboratory and microbiology Laboratory Tests 01/17/25 04:47 Test 01/17/25 04:47 Range/Units Serum Glucose 90 74-106 mg/dL Microbiology Date/Time Source Procedure Growth Status 01/08/25 14:45 Leg Right Gram Stain - Final Complete 01/08/25 14:45 Wound Culture - Final Methicillin Resistant S.aureus Stenotrophomonas maltophilia Complete Problem List/Assessment/Plan Problem List/Assessment/Plan This is a 44-year-old morbidly obese gentleman with past medical history of HIV, chronic venous stasis, DVT, hypertension, dyslipidemia, DVT, RV failure (cor pulmonale), obstructive sleep apnea, came to the hospital due to blood in urine and bilateral lower limb swelling. 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 * IV antibiotics * Strict I&Os * Renal diet * We will follow up with the patient Thank you for giving us the opportunity to take area of the patient. Please call back if you have any questions/concerns. Plan discussed with: Patient My Orders My Orders Orders - АННА CAMERON MD Procedure Category Date Status Time Bumetanide Injection PHA 01/17/25 In Process (Bumex Injection) 18:00 Dietary Evaluation Review Comments: Nutrition Recommendation: 1) Consider NCS + cardiac diet 2) Bryce 1 pk BID 3) Refer Equine Breeder for diabetes education (Pre-DM) 4) Monitor PO intake, lab values, weight trend, and I/O Expected Outcomes/Goals: Wound to improve Fu 3-5 days АННА CAMERON MD Jan 18, 2025 11:00
[2025-01-18] MEDS: POTASSIUM EFFERVESENT TAB 25 MEQ GT SCH (11:59)
--- NOTE | 2025-01-18 13:51 | DVHPN2 ---
Reviewed: H&P Changes from previous H/P or p: No Changes General: Per HPI Eyes: No Pain, No Vision change, No Conjunctivae inflammation, No Eyelid inflammation, No Other, No Redness ENT: No Ear pain, No Ear discharge, No Nose pain, No Nose discharge, No Nose congestion, No Mouth pain, No Mouth swelling, No Throat pain, No Throat swelling, No Other Cardiovascular: No Chest Pain, No Palpitations, No Orthopnea, No Paroxysmal Noc. Dyspnea, No Edema, No Lt Headedness, No Other Respiratory: No Cough, No Dry, No Shortness of breath, No SOB with excertion, No Wheezing, No Hemoptysis, No Pleuritic Pain, No Sputum, No Other Gastrointestinal: No Nausea, No Vomiting, No Abdominal Pain, No Diarrhea, No Constipation, No Melena, No Hematochezia, No Other Genitourinary: No Dysuria, No Frequency, No Incontinence; Hematuria; No Retention, No Other Musculoskeletal: other (Left foot amputation, Joint pain, joint swelling.); No neck pain, No shoulder pain, No arm pain, No back pain, No hand pain, No leg pain, No foot pain Skin: No Rash, No Lesions, No Jaundice, No Bruising, No Other Objective Vitals Vital Signs Date Time Temp Pulse Resp B/P (MAP) Pulse Ox O2 Delivery O2 Flow Rate FiO2 01/18/25 13:00 97.6 63 18 138/79 (98) 94 97.6 01/18/25 10:30 Room Air* 0 21 Intake/Output Intake and Output 01/18/25 07:00 Intake Total 1210 ml Output Total 1300 ml Balance -90 ml Intake Oral 1210 ml Output Urine Total 1300 ml # Bowel Movements 1 General Appearance: Alert, Oriented X3 HEENT: Atraumatic Lungs: Clear to auscultation Cardiovascular: Regular rate, Normal S1, Normal S2 Medications Current Medications Medications Dose Ordered Sig/Cookie Route Start Time Stop Time Status Last Admin Dose Admin Atorvastatin Calcium 20 mg HS PO 01/07/25 22:00 01/17/25 21:02 20 MG Metoprolol Tartrate 50 mg BID PO 01/07/25 10:00 01/18/25 09:23 50 MG Patient Own Medication 50 mg DAILY PO 01/07/25 10:00 01/18/25 09:24 50 MG Sodium Chloride 10 ml Q8HR IV 01/07/25 06:00 01/18/25 05:20 10 ML Acetaminophen 650 mg Q6HP PRN PO 01/06/25 22:15 01/07/25 23:08 650 MG Hydralazine HCl 10 mg Q8HR PO 01/07/25 22:00 01/18/25 05:21 10 MG Aspirin 81 mg DAILY PO 01/08/25 10:00 01/18/25 09:23 81 MG Enoxaparin Sodium 150 mg Q12HR SC 01/08/25 22:00 01/18/25 09:24 150 MG Levofloxacin 750 mg DAILY PO 01/17/25 10:00 01/18/25 09:23 750 MG Linezolid 600 mg BID PO 01/17/25 10:00 01/18/25 09:23 600 MG Bumetanide 1 mg BIDD IV 01/17/25 18:00 01/18/25 05:20 1 MG Potassium Bicarbonate 50 meq BID GT 01/18/25 11:00 01/19/25 10:01 01/18/25 11:59 50 MEQ Laboratory Results Laboratory Tests 01/17/25 04:47 Urinalysis Test 01/08/25 11:30 Urine Color Yellow (Yellow) Urine Clarity Turbid (Clear) H Urine pH 5.5 (5.0-9.0) Urine Specific [place] 1.015 (1.001-1.035) Urine Protein 1+ (Negative) H Urine Ketones Negative (Negative) Urine Blood 3+ /uL (Negative) H Urine Nitrite Negative (Negative) Urine Bilirubin Negative (Negative) Urine Urobilinogen Normal mg/dL (Negative) Urine Leukocyte Esterase Negative /uL (Negative) Urine RBC 56 /hpf (0 - 3) Urine Microscopic WBC 10 /HPF (0-3) H Urine Squamous Epithelial Cells Few /hpf (<5) Urine Bacteria Few /hpf (None Seen) H Urine Yeast (Budding) Occasional /hpf (None Urine Creatinine 120.02 mg/dL (30.0-125.0) Urine Protein/Creatinine Ratio 1.06 Urine Sodium 49 mmol/L (40-220) Urine Potassium 40 mmol/L (12-62) Urine Glucose Normal mg/dL (Normal) Urine Total Protein 127.2 mg/dL (1-14) H Microbiology Microbiology Date/Time Source Procedure Growth Status 01/08/25 14:45 Leg Right Gram Stain - Final Complete 01/08/25 14:45 Wound Culture - Final Methicillin Resistant S.aureus Stenotrophomonas maltophilia Complete Labs and/or images reviewed: Labs reviewed by me, Image(s) reviewed by me Assessment/Plan Assessment/Plan 01/18: Patient needs multiple antibiotics for multiple MDRO organisms. Patient has been discharge, pending home health antibiotics, continuing discharge plan. Patient remains stable for discharge, see DC summary Assessment/Plan gross hematuria GONZÁLEZ ATN severe RV failure HFpEF HIV acute on chronic diastolic HF morbid obesity IVONNE HLD preDM chronic pain chronic venous stasis DVT LLE on pradaxa celulitis? s/p L toe amputation 04/15 chord entanglement CAD s/p NAVEEN? on asa iga nephropathy? dapto and levaquin bipap at night bumex, aldactone resume home meds resume dovato pradaxa to lovenox CD4 200s pain management o2 maintain spo2 >92 Renal function slowly improving blood culture strict io Follow up with nephrology rec urinary if knee biopsy. Patient will need Nephrology outpatient Consult ID for multiple drug resistant bacteria in wounds>PICC line and IV abx for 4 weeks with Follow up IV abx ertapenem diet cardiac dvt ppx on lovenox Dispo: Needs midline and IV abx arrangements before discharge, next 1-2 days Plan discussed with: Patient Date of Service: Jan 18, 2025 Billing Provider: YAYO MCINTYRE MD Common Visit Codes: [id number] INP/OBS CARE(MOD) YAYO MCINTYRE MD Jan 18, 2025 13:51
--- NOTE | 2025-01-19 16:18 | DVHPN2 ---
Consult Progress Note Objective vital signs Vital Sign Date Time Temp Pulse Resp B/P (MAP) Pulse Ox O2 Delivery O2 Flow Rate FiO2 01/18/25 15:48 136/79 01/18/25 15:38 97.6 63 18 96 01/18/25 10:30 Room Air* 0 21 Total Intake and Output 01/18/25 01/18/25 01/19/25 15:00 23:00 07:00 Intake Total 550 ml Output Total 950 ml Balance -400 ml laboratory and microbiology Laboratory Tests 01/17/25 04:47 Test 01/17/25 04:47 Range/Units Serum Glucose 90 74-106 mg/dL Dietary Evaluation Review Comments: Nutrition Recommendation: 1) Consider NCS + cardiac diet 2) Bryce 1 pk BID 3) Refer Clinical Appeals Reviewer for diabetes education (Pre-DM) 4) Monitor PO intake, lab values, weight trend, and I/O Expected Outcomes/Goals: Wound to improve Fu 3-5 days SEEMA RUANO MD Jan 19, 2025 16:18
== END 2025-01-18 17:09 | disposition home or self-care (01) | DRG 462 ==
LOC: ER 16:54 → TELE-EAST 22:20 → OVERFLOW 22:35 → TELE-EAST 01-07 18:30
PROVIDERS: ADMIT Student in an Organized Health Care Education/Training Program; ATTEND Student in an Organized Health Care Education/Training Program
PROC: 05HF33Z Insertion of Infusion Device into Left Cephalic Vein, Percutaneous Approach (ICD-10-PCS; principal; 2025-01-17)
PROC: B54NZZA Ultrasonography of Left Upper Extremity Veins, Guidance (ICD-10-PCS; 2025-01-17)
DX: N02.B9 Other recurrent and persistent immunoglobulin A nephropathy (principal); I27.81 Cor pulmonale (chronic); L03.115 Cellulitis of right lower limb; L89.892 Pressure ulcer of other site, stage 2; Z68.45 Body mass index [BMI] 70 or greater, adult; L03.116 Cellulitis of left lower limb; I13.0 Hypertensive heart and chronic kidney disease with heart failure and stage 1 through stage 4 chronic kidney disease, or unspecified chronic kidney disease; N17.0 Acute kidney failure with tubular necrosis; Z79.01 Long term (current) use of anticoagulants; N18.4 Chronic kidney disease, stage 4 (severe); F32.A Depression, unspecified; I50.32 Chronic diastolic (congestive) heart failure; E66.01 Morbid (severe) obesity due to excess calories; I87.8 Other specified disorders of veins; I25.10 Atherosclerotic heart disease of native coronary artery without angina pectoris; G47.33 Obstructive sleep apnea (adult) (pediatric); I87.2 Venous insufficiency (chronic) (peripheral); E78.5 Hyperlipidemia, unspecified; F41.9 Anxiety disorder, unspecified; G89.29 Other chronic pain; I48.91 Unspecified atrial fibrillation; Z98.61 Coronary angioplasty status; Z88.5 Allergy status to narcotic agent; Z88.0 Allergy status to penicillin; Z86.718 Personal history of other venous thrombosis and embolism; Z79.899 Other long term (current) drug therapy; Z83.3 Family history of diabetes mellitus; Z82.49 Family history of ischemic heart disease and other diseases of the circulatory system
CPT/HCPCS: 36415; 71045; 76775; 80048; 80053; 80074; 81001; 82550; 82570; 82784; 82962; 83516; 83520; 83690; 83735; 83880; 83970; 84100; 84133; 84156; 84300; 85007; 85025; 85027; 85610; 85730; 86160; 86225; 86235; 86256; 86360; 87077; 87081; 87186; 87205; 87536; 93971; 96361; 96365; 97110; 97116; 97163; 97530; G0378; J1335; J1956; J2003